=== PATIENT | male | born 1955 | race Two or more races ===

== ENCOUNTER 2017-11-16 18:25 | Inpatient (IN) | payer MEDICAID ==
[~2017-11-16] VITALS: Ht 167.6 cm; Wt 47.4 kg
[2017-11-16] MEDS ORDERED: FUROSEMIDE40 MG ORAL (18:31)
[2017-11-16] MEDS ORDERED: DOCUSATE SODIU100 MG ORAL (18:31)
[2017-11-16] MEDS ORDERED: WARFARIN SODIUM4 MG ORAL (18:31)
[2017-11-16] MEDS ORDERED: PLAVIX75 MG ORAL (18:31)
[2017-11-16] MEDS ORDERED: ASPIR 8181 MG ORAL (18:31)
[2017-11-16] MEDS ORDERED: ATORVASTATIN CA20 MG ORAL (18:31)
[2017-11-16] MEDS ORDERED: LISINOPRIL20 MG ORAL (18:31)
[2017-11-16 19:14] VITALS: BP 107/58
[2017-11-16] MEDS ORDERED: Piperacillin/Tazobactam 3.375 GM in NS 110 ML IVPB ONE (19:15)
[2017-11-16] MEDS ORDERED: Vancomycin 1 GM in NS 275 ML IVPB ONE (19:15)
[2017-11-16 19:42] LABS: ANION GAP 7 mmol/L (5-15); BLOOD UREA NITROGEN 14 mg/dL (7-18); CALCIUM 8.9 MG/DL (8.5-10.1); CARBON DIOXIDE 29 MMOL/L (21-32); CHLORIDE 100 MMOL/L (98-107); CREATININE 0.8 MG/DL (0.55-1.30); POTASSIUM 3.6 MMOL/L (3.5-5.1); SODIUM 136 MMOL/L (136-145)
[2017-11-16] MEDS ORDERED: Morphine Sulfate 4mg/ml Inj (IV USE ONLY) IVP ONE (19:45)
[2017-11-16] MEDS ORDERED: ACETAMINOPHEN325 M1 ORAL (19:48)
[2017-11-16] MEDS ORDERED: NORCO 5-325 TA1 EACH ORAL (19:48)
[2017-11-16 19:52] LABS: HEMATOCRIT 23.7 % (42.0-52.0); HEMOGLOBIN 7.8 G/DL (14.2-18.0); MEAN CORPUSCULAR VOLUME 88 FL (80-99); PLATELET COUNT 674 K/UL (150-450); RED CELL DISTRIBUTION WIDTH 15.2 % (11.6-14.8)
[2017-11-16 19:55] LABS: ALANINE AMINOTRANSFERASE 61 U/L (12-78); ALBUMIN 2.2 G/DL (3.4-5.0); ALBUMIN/GLOBULIN RATIO 0.4 (1.0-2.7); ALKALINE PHOSPHATASE 183 U/L (46-116); ASPARTATE AMINO TRANSFERASE 34 U/L (15-37); BILIRUBIN,TOTAL 0.2 MG/DL (0.2-1.0); CKMB 0.8 NG/ML (0.0-3.6); CREATINE KINASE 29 U/L (26-308); PHOSPHORUS 3.5 MG/DL (2.5-4.9)
[2017-11-16] MEDS ORDERED: NOVOLIN R100 UNIT/1 SUBQ (20:10)
[2017-11-16 20:16] VITALS: BP 94/58
[2017-11-16 21:15] VITALS: BP 106/53
[2017-11-16] MEDS: Norco 5mg/325mg tab ORAL PRN (23:15)
--- NOTE | 2017-11-16 23:47 | Emergency Room Report ---
History of Present Illness General Chief Complaint: Abnormal Labs Source: Medical Record Present Illness HPI Patient is a 62-year-old male sent in by intermediate after increased drainage and swelling to his right lower extremity. Patient recent surgery for his right leg which appeared to be a vascular procedure. Patient had been apparently refusing antibiotics at the facility. The patient been noted to have increased discomfort. Allergies: Coded Allergies: No Known Allergies (Unverified , 11/16/17) Nursing Documentation-[facility] Past Medical History: No History, Except For Hx Hypertension: Yes - gangrene, osteomyelitis Hx Diabetes: Yes - diabetic neuropathy Review of Systems All Other Systems: limited - by poor historian Physical Exam Vital Signs Date Time Temp Pulse Resp B/P (MAP) Pulse Ox O2 Delivery O2 Flow Rate FiO2 11/16/17 18:26 98.6 76 14 111/66 98 Room Air 98.6 General Appearance: no apparent distress, alert, GCS 15, thin, Chronically Ill Neck: full range of motion, supple, thyroid normal Respiratory: lungs clear, normal breath sounds Cardiovascular #1: normal peripheral pulses, regular rate, rhythm Gastrointestinal: normal inspection, normal bowel sounds, non tender Musculoskeletal: swelling - right foot, thigh and leg incision with slight discharge, and minimal drainage, other - left aka Neurologic: alert, responsive, sleeve baster III-XII nml as tested Skin: other - skin infection Medical Decision Making Diagnostic Impression: Primary Impression: Cellulitis of right leg ER Course The patient presented after increased right leg and foot swelling. The differential diagnosis included was not limited to the cellulitis, osteomyelitis , necrotizing fasciitis, wound infection among others. The patient appears have some evidence of wound infection the patient noted have elevated white blood count. The patient started on IV antibiotics and IV fluids.The patient was discussed with Dr. Fox for Dr. La Labs Test 11/16/17 19:15 White Blood Count 16.0 K/UL (4.8-10.8) Red Blood Count 2.70 M/UL (4.70-6.10) Hemoglobin 7.8 G/DL (14.2-18.0) Hematocrit 23.7 % (42.0-52.0) Mean Corpuscular Volume 88 FL (80-99) Mean Corpuscular Hemoglobin 29.0 PG (27.0-31.0) Mean Corpuscular Hemoglobin Concent 33.0 G/DL (32.0-36.0) Red Cell Distribution Width 15.2 % (11.6-14.8) Platelet Count 674 K/UL (150-450) Mean Platelet Volume 4.5 FL (6.5-10.1) Neutrophils (%) (Auto) % (45.0-75.0) Lymphocytes (%) (Auto) % (20.0-45.0) Monocytes (%) (Auto) % (1.0-10.0) Eosinophils (%) (Auto) % (0.0-3.0) Basophils (%) (Auto) % (0.0-2.0) Differential Total Cells Counted 100 Neutrophils % (Manual) 79 % (45-75) Lymphocytes % (Manual) 16 % (20-45) Monocytes % (Manual) 4 % (1-10) Eosinophils % (Manual) 1 % (0-3) Basophils % (Manual) 0 % (0-2) Band Neutrophils 0 % (0-8) Platelet Estimate Increased Platelet Morphology Normal Hypochromasia 1+ Anisocytosis 1+ Sodium Level 136 MMOL/L (136-145) Potassium Level 3.6 MMOL/L (3.5-5.1) Chloride Level 100 MMOL/L (98-107) Carbon Dioxide Level 29 MMOL/L (21-32) Anion Gap 7 mmol/L (5-15) Blood Urea Nitrogen 14 mg/dL (7-18) Creatinine 0.8 MG/DL (0.55-1.30) Estimat Glomerular Filtration Rate > 60 mL/min (>60) Glucose Level 177 MG/DL (74-106) Lactic Acid Level 1.80 mmol/L (0.4-2.0) Calcium Level 8.9 MG/DL (8.5-10.1) Phosphorus Level 3.5 MG/DL (2.5-4.9) Magnesium Level 2.0 MG/DL (1.8-2.4) Total Bilirubin 0.2 MG/DL (0.2-1.0) Aspartate Amino Transf (AST/SGOT) 34 U/L (15-37) Alanine Aminotransferase (ALT/SGPT) 61 U/L (12-78) Alkaline Phosphatase 183 U/L (46-116) Total Creatine Kinase 29 U/L (26-308) Creatine Kinase MB 0.8 NG/ML (0.0-3.6) Creatine Kinase MB Relative Index 2.7 Troponin I 0.000 ng/mL (0.000-0.056) Total Protein 7.8 G/DL (6.4-8.2) Albumin 2.2 G/DL (3.4-5.0) Globulin 5.6 g/dL Albumin/Globulin Ratio 0.4 (1.0-2.7) EKG Diagnostic Results Rate: normal - 72 Rhythm: NSR ST Segments: other - nonspecific st changes Last Vital Signs Date Time Temp Pulse Resp B/P (MAP) Pulse Ox O2 Delivery O2 Flow Rate FiO2 11/16/17 21:00 98.1 69 17 94/58 99 Room Air 98.1 Status: unchanged Disposition: ADMITTED INPATIENT Condition: Serious Referrals: Marylou Baca MD (PCP) Andrzej Strauss MD Nov 16, 2017 23:47
[2017-11-17] VITALS: BP 99/56
[2017-11-17 04:00] VITALS: BP 125/79
[2017-11-17] MEDS: Norco 5mg/325mg tab ORAL PRN (04:34)
[2017-11-17] MEDS: NovoLOG Insulin Flexpen SUBQ SCH ×4 (06:26→21:37)
--- NOTE | 2017-11-17 06:37 | Consultation ---
Consult Note Consult Note Hematology Consult DOS: 11/17/17 MIMI MD: Keven LEVINE: anemia evaluation Chief Complaint: Abnormal Labs Present Illness HPI Patient is a 62-year-old with hx of HTN, osteomyelitis, DM neuropathy [facility] after increased drainage and swelling to his right lower extremity. Patient recent surgery for his right leg which appeared to be a vascular procedure, has a left AKA. Patient had been apparently refusing antibiotics at the facility. The patient been noted to have increased discomfort. Noted to have a hgb 6.8 and heme consulted for eval Allergies: No Known Allergies (Unverified , 11/16/17) Past Medical History: No History, Except For Hx Hypertension: Yes - gangrene, osteomyelitis Hx Diabetes: Yes - diabetic neuropathy Review of Systems All Other Systems: limited - by poor historian Physical Exam Vital Signs Date Time Temp Pulse Resp B/P (MAP) Pulse Ox O2 Delivery O2 Flow Rate FiO2 11/16/17 18:26 98.6 76 14 111/66 98 Room Air 98.6 General Appearance: no apparent distress, alert, Chronically Ill Neck: full range of motion, supple, thyroid normal Respiratory: lungs clear, normal breath sounds Cardiovascular #1: normal peripheral pulses, regular rate, rhythm Gastrointestinal: normal inspection, normal bowel sounds Musculoskeletal: swelling - right foot, thigh and leg incision with slight discharge, and minimal drainage, other - left aka Neurologic: alert, responsive, cco & president III-XII nml as tested Skin: other - skin infection noted around heel Laboratory Tests Test 11/16/17 19:15 White Blood Count 16.0 K/UL (4.8-10.8) H Red Blood Count 2.70 M/UL (4.70-6.10) L Hemoglobin 7.8 G/DL (14.2-18.0) L Hematocrit 23.7 % (42.0-52.0) L Mean Corpuscular Volume 88 FL (80-99) Mean Corpuscular Hemoglobin 29.0 PG (27.0-31.0) Mean Corpuscular Hemoglobin Concent 33.0 G/DL (32.0-36.0) Red Cell Distribution Width 15.2 % (11.6-14.8) H Platelet Count 674 K/UL (150-450) H Mean Platelet Volume 4.5 FL (6.5-10.1) L Neutrophils (%) (Auto) % (45.0-75.0) Lymphocytes (%) (Auto) % (20.0-45.0) Monocytes (%) (Auto) % (1.0-10.0) Eosinophils (%) (Auto) % (0.0-3.0) Basophils (%) (Auto) % (0.0-2.0) Differential Total Cells Counted 100 Neutrophils % (Manual) 79 % (45-75) H Lymphocytes % (Manual) 16 % (20-45) L Monocytes % (Manual) 4 % (1-10) Eosinophils % (Manual) 1 % (0-3) Basophils % (Manual) 0 % (0-2) Band Neutrophils 0 % (0-8) Platelet Estimate Increased H Platelet Morphology Normal Hypochromasia 1+ Anisocytosis 1+ Sodium Level 136 MMOL/L (136-145) Potassium Level 3.6 MMOL/L (3.5-5.1) Chloride Level 100 MMOL/L (98-107) Carbon Dioxide Level 29 MMOL/L (21-32) Anion Gap 7 mmol/L (5-15) Blood Urea Nitrogen 14 mg/dL (7-18) Creatinine 0.8 MG/DL (0.55-1.30) Estimat Glomerular Filtration Rate > 60 mL/min (>60) Glucose Level 177 MG/DL (74-106) H Lactic Acid Level 1.80 mmol/L (0.4-2.0) Calcium Level 8.9 MG/DL (8.5-10.1) Phosphorus Level 3.5 MG/DL (2.5-4.9) Magnesium Level 2.0 MG/DL (1.8-2.4) Total Bilirubin 0.2 MG/DL (0.2-1.0) Aspartate Amino Transf (AST/SGOT) 34 U/L (15-37) Alanine Aminotransferase (ALT/SGPT) 61 U/L (12-78) Alkaline Phosphatase 183 U/L (46-116) H Total Creatine Kinase 29 U/L (26-308) Creatine Kinase MB 0.8 NG/ML (0.0-3.6) Creatine Kinase MB Relative Index 2.7 Troponin I 0.000 ng/mL (0.000-0.056) Total Protein 7.8 G/DL (6.4-8.2) Albumin 2.2 G/DL (3.4-5.0) L Globulin 5.6 g/dL Albumin/Globulin Ratio 0.4 (1.0-2.7) L Assessment and Recs: # Anemia of chronic disease - anemia workup has been reviewed, have ordered for ferritin, tibc, folate, esr, retic, b12 --> hgb goal >7, transfuse as needed --> r/o gi bleed # Leukocytosis is likely related to underlying infection likely due to foot infection --> should improve on abx, currently on vanc # Thrombocytosis - likely due to reactive process from anemia # Cellulitis of right leg - increased right leg and foot swelling. --> started on antibiotics for treatment, consider Id eval # Left AKA GREATLY APPRECIATE CONSULTATION Spencer Resendiz MD Nov 17, 2017 06:37
[2017-11-17] MEDS ORDERED: Vancomycin 1 GM in D5W 275 ML IVPB SCH (07:00)
[2017-11-17 07:52] LABS: HEMATOCRIT 24.3 % (42.0-52.0); HEMOGLOBIN 7.6 G/DL (14.2-18.0); MEAN CORPUSCULAR VOLUME 88 FL (80-99); PLATELET COUNT 647 K/UL (150-450); RED BLOOD COUNT 2.76 M/UL (4.70-6.10)
[2017-11-17 08:00] VITALS: BP 112/75
[2017-11-17] MEDS: Morphine Sulfate 2mg/ml Inj(IV/IM USE ONLY) IVP PRN ×4 (08:09→19:58)
[2017-11-17] MEDS: Lisinopril 20mg tab ORAL SCH (08:11)
[2017-11-17] MEDS: Furosemide 40mg tab ORAL SCH (08:12)
[2017-11-17] MEDS: Aspirin EC 81mg tab ORAL SCH (08:12)
[2017-11-17] MEDS: Docusate 100mg cap ORAL SCH (08:12)
[2017-11-17 08:14] LABS: FERRITIN 268 NG/ML (8-388)
[2017-11-17] MEDS: Heparin 5000 units/ml inj SUBQ SCH ×2 (08:14→21:36)
[2017-11-17 08:30] LABS: % IRON SATURATION 7 % (15-50); IRON 16 ug/dL (50-175); TOTAL IRON BINDING CAPACITY 216 ug/dL (250-450)
--- NOTE | 2017-11-17 08:38 | Diagnostic Imaging Report ---
Indication: Shortness of breath Technique: One view of the chest Comparison: none Findings: Lungs and pleural spaces are clear. Heart size is normal. Aorta is tortuous and calcified Impression: No acute process
[2017-11-17 08:52] LABS: ANION GAP 7 mmol/L (5-15); BLOOD UREA NITROGEN 10 mg/dL (7-18); CALCIUM 8.5 MG/DL (8.5-10.1); CARBON DIOXIDE 26 MMOL/L (21-32); CHLORIDE 103 MMOL/L (98-107); CREATININE 0.4 MG/DL (0.55-1.30); POTASSIUM 4.1 MMOL/L (3.5-5.1); SODIUM 135 MMOL/L (136-145)
[2017-11-17] MEDS ORDERED: Pneumococcal Vaccine 25mcg/0.5ml IM ONE (09:00)
[2017-11-17] MEDS: Vancomycin 1 GM in D5W 275 ML IVPB SCH ×2 (09:18→20:22)
[2017-11-17 12:00] VITALS: BP 137/67
--- NOTE | 2017-11-17 13:26 | History and Physical ---
History of Present Illness General Date patient seen: Nov 17, 2017 Reason for Hospitalization: Abnormal Labs Present Illness HPI 62 y/o male with a PMH of DM, s/p left above the knee amputation, HTN, and PVD presents from [facility] for extensive gangrene and vasculopathy to RLE. Patient stated that he had the LLE amputation 1 year ago. He states that on the right lower extremity, he had a toe gangrene, which prompted his vascular surgeon to perform a RLE angioplasty 1 month ago. He states that his gangrene/ infection to right foot has been worsening over the last 1 month. Patient was also noted to have been denying IV antibiotics at the SNF. Patient was further admitted for management of right foot gangrene. Reports pain and swelling to RLE. Denies cp, sob, n/v, abdominal pain, f/c. Denies alcohol or cigarette use. Denies illicit drug use. Allergies: Coded Allergies: No Known Allergies (Unverified , 11/16/17) Medication History Scheduled Aspirin* (Aspir 81*), 81 MG ORAL DAILY, (Reported) Atorvastatin Calcium* (Atorvastatin Calcium*), 20 MG ORAL BEDTIME, (Reported) Clopidogrel Bisulfate* (Plavix*), 75 MG ORAL DAILY, (Reported) Docusate Sodium* (Docusate Sodium*), 100 MG ORAL DAILY, (Reported) Furosemide* (Lasix*), 40 MG ORAL DAILY, (Reported) Lisinopril (Lisinopril*), 10 MG ORAL DAILY, (Reported) Scheduled PRN Acetaminophen* (Acetaminophen 325MG Tablet*), 325 MG ORAL Q4H PRN for Mild Pain/ Temp > 100.5, (Reported) Hydrocodone Bit/Acetaminophen 5-325* ([place] 5-325*), 1 TAB ORAL Q4H PRN for Moderate Pain (Pain Scale 4-6), (Reported) Discontinued Medications Insulin Regular, Human* (Novolin R*), 0 SUBQ .SLIDING SCALE, (Reported) Discontinued Reason: discontinued med Warfarin Sod* (Warfarin Sod*), 4 MG ORAL DAILY, (Reported) Discontinued Reason: discontinued med Patient History History Provided By: Patient, Medical Record Healthcare decision maker Resuscitation status Full Code Advanced Directive on File Review of Systems All Other Systems: negative except mentioned in HPI Physical Exam General Appearance: no apparent distress, alert HEENT: normocephalic, atraumatic Neck: non-tender, normal alignment, supple Respiratory/Chest: chest wall non-tender, lungs clear, normal breath sounds Cardiovascular/Chest: normal peripheral pulses, normal rate, regular rhythm Abdomen: normal bowel sounds, non tender, soft Extremities: other Last 24 Hour Vital Signs Date Time Temp Pulse Resp B/P (MAP) Pulse Ox O2 Delivery O2 Flow Rate FiO2 11/17/17 12:00 98.0 73 20 137/67 (90) 97 98.0 11/17/17 11:55 98.6 11/17/17 11:25 98.6 11/17/17 09:00 Room Air 11/17/17 08:11 113/73 11/17/17 08:09 98.6 11/17/17 08:00 75 11/17/17 08:00 98.9 85 20 112/75 (87) 97 98.9 11/17/17 04:00 66 11/17/17 04:00 98.6 77 20 125/79 (94) 97 98.6 11/17/17 00:00 68 11/17/17 00:00 97.8 67 20 99/56 (70) 96 97.8 11/16/17 21:15 Room Air 11/16/17 21:15 97.0 64 20 106/53 (70) 97 97.0 11/16/17 21:11 67 11/16/17 21:00 98.1 69 17 94/58 99 Room Air 98.1 11/16/17 20:16 98.1 69 17 94/58 99 Room Air 98.1 11/16/17 20:07 98.1 11/16/17 19:37 99.0 11/16/17 19:14 99.0 68 18 107/58 100 Room Air 99.0 11/16/17 18:26 98.6 76 14 111/66 98 Room Air 98.6 Intake and Output 11/16/17 11/17/17 19:00 07:00 Intake Total 350 ml Output Total 0 ml Balance 350 ml Intake Oral 240 ml IV Total 110 ml Output Urine Total 0 ml Laboratory Tests Test 11/16/17 19:15 11/17/17 07:10 White Blood Count 16.0 K/UL (4.8-10.8) H 16.0 K/UL (4.8-10.8) H Red Blood Count 2.70 M/UL (4.70-6.10) L 2.76 M/UL (4.70-6.10) L Hemoglobin 7.8 G/DL (14.2-18.0) L 7.6 G/DL (14.2-18.0) L Hematocrit 23.7 % (42.0-52.0) L 24.3 % (42.0-52.0) L Mean Corpuscular Volume 88 FL (80-99) 88 FL (80-99) Mean Corpuscular Hemoglobin 29.0 PG (27.0-31.0) 27.4 PG (27.0-31.0) Mean Corpuscular Hemoglobin Concent 33.0 G/DL (32.0-36.0) 31.1 G/DL (32.0-36.0) L Red Cell Distribution Width 15.2 % (11.6-14.8) H 15.0 % (11.6-14.8) H Platelet Count 674 K/UL (150-450) H 647 K/UL (150-450) H Mean Platelet Volume 4.5 FL (6.5-10.1) L 4.5 FL (6.5-10.1) L Neutrophils (%) (Auto) % (45.0-75.0) % (45.0-75.0) Lymphocytes (%) (Auto) % (20.0-45.0) % (20.0-45.0) Monocytes (%) (Auto) % (1.0-10.0) % (1.0-10.0) Eosinophils (%) (Auto) % (0.0-3.0) % (0.0-3.0) Basophils (%) (Auto) % (0.0-2.0) % (0.0-2.0) Differential Total Cells Counted 100 100 Neutrophils % (Manual) 79 % (45-75) H 83 % (45-75) H Lymphocytes % (Manual) 16 % (20-45) L 12 % (20-45) L Monocytes % (Manual) 4 % (1-10) 4 % (1-10) Eosinophils % (Manual) 1 % (0-3) 0 % (0-3) Basophils % (Manual) 0 % (0-2) 1 % (0-2) Band Neutrophils 0 % (0-8) 0 % (0-8) Platelet Estimate Increased H Increased H Platelet Morphology Normal Normal Hypochromasia 1+ 3+ Anisocytosis 1+ 1+ Sodium Level 136 MMOL/L (136-145) 135 MMOL/L (136-145) L Potassium Level 3.6 MMOL/L (3.5-5.1) 4.1 MMOL/L (3.5-5.1) Chloride Level 100 MMOL/L (98-107) 103 MMOL/L (98-107) Carbon Dioxide Level 29 MMOL/L (21-32) 26 MMOL/L (21-32) Anion Gap 7 mmol/L (5-15) 7 mmol/L (5-15) Blood Urea Nitrogen 14 mg/dL (7-18) 10 mg/dL (7-18) Creatinine 0.8 MG/DL (0.55-1.30) 0.4 MG/DL (0.55-1.30) L Estimat Glomerular Filtration Rate > 60 mL/min (>60) > 60 mL/min (>60) Glucose Level 177 MG/DL (74-106) H 85 MG/DL (74-106) Lactic Acid Level 1.80 mmol/L (0.4-2.0) Calcium Level 8.9 MG/DL (8.5-10.1) 8.5 MG/DL (8.5-10.1) Phosphorus Level 3.5 MG/DL (2.5-4.9) Magnesium Level 2.0 MG/DL (1.8-2.4) Total Bilirubin 0.2 MG/DL (0.2-1.0) Aspartate Amino Transf (AST/SGOT) 34 U/L (15-37) Alanine Aminotransferase (ALT/SGPT) 61 U/L (12-78) Alkaline Phosphatase 183 U/L (46-116) H Total Creatine Kinase 29 U/L (26-308) Creatine Kinase MB 0.8 NG/ML (0.0-3.6) Creatine Kinase MB Relative Index 2.7 Troponin I 0.000 ng/mL (0.000-0.056) Total Protein 7.8 G/DL (6.4-8.2) Albumin 2.2 G/DL (3.4-5.0) L Globulin 5.6 g/dL Albumin/Globulin Ratio 0.4 (1.0-2.7) L Reticulocyte Count 3.3 % (0.0-2.0) H Fibrinogen 679 mg/dL (200-400) H Hemoglobin A1c 7.0 % (4.3-6.0) H Uric Acid 1.5 MG/DL (2.6-7.2) L Iron Level 16 ug/dL (50-175) L Total Iron Binding Capacity 216 ug/dL (250-450) L Percent Iron Saturation 7 % (15-50) L Unsaturated Iron Binding 200 ug/dL (112-346) Ferritin 268 NG/ML (8-388) Carcinoembryonic Antigen Pending Vitamin B12 Level 878 PG/ML (193-986) Folate 11.1 NG/ML (8.6-58.9) Thyroid Stimulating Hormone (TSH) 1.963 uiU/mL (0.358-3.740) Height (Feet): 5 Height (Inches): 8.00 Weight (Pounds): 105 Medications Current Medications Medications (Trade) Dose Ordered Sig/Abimael Route PRN Reason Start Time Stop Time Status Last Admin Dose Admin Acetaminophen (Tylenol) 325 mg Q4H PRN ORAL Mild Pain/Temp > 100.5 11/16/17 23:00 12/16/17 22:59 Acetaminophen/ Hydrocodone Bitart ([place] 5/325) 1 tab Q4H PRN ORAL Moderate Pain (Pain Scale 4-6) 11/16/17 23:00 11/23/17 22:59 11/17/17 04:34 Aspirin (Ecotrin) 81 mg DAILY ORAL 11/17/17 09:00 12/17/17 08:59 11/17/17 08:12 Atorvastatin Calcium (Lipitor) 20 mg BEDTIME ORAL 11/17/17 21:00 12/17/17 20:59 Cefepime HCl 2 gm/ Dextrose 55 ml @ 110 mls/hr EVERY 12 HOURS IVPB 11/17/17 13:00 11/24/17 12:59 Clopidogrel Bisulfate (Plavix) 75 mg DAILY ORAL 11/17/17 09:00 12/17/17 08:59 11/17/17 08:17 Dextrose (Dextrose 50%) 25 ml STAT PRN IV Hypoglycemia 11/16/17 23:00 12/16/17 22:59 Dextrose (Dextrose 50%) 50 ml STAT PRN IV Hypoglycemia 11/16/17 23:00 12/16/17 22:59 Docusate Sodium (Colace) 100 mg DAILY ORAL 11/17/17 09:00 12/17/17 08:59 11/17/17 08:12 Furosemide (Lasix) 40 mg DAILY ORAL 11/17/17 09:00 12/17/17 08:59 11/17/17 08:12 Heparin Sodium (Porcine) (Heparin 5000 units/ml) 5,000 units EVERY 12 HOURS SUBQ 11/17/17 09:00 12/17/17 08:59 11/17/17 08:14 Insulin Aspart (NovoLOG) BEFORE MEALS AND HS SUBQ 11/17/17 06:30 12/17/17 06:29 11/17/17 11:31 Lisinopril (Prinivil) 10 mg DAILY ORAL 11/17/17 09:00 12/17/17 08:59 11/17/17 08:11 Metronidazole 100 ml @ 100 mls/hr Q8HR IVPB 11/17/17 14:00 11/24/17 13:59 Morphine Sulfate (Morphine Sulfate) 2 mg Q3H PRN IVP Severe Pain (Pain Scale 7-10) 11/17/17 08:00 11/24/17 07:59 11/17/17 11:25 Vancomycin HCl (Vanco rx to dose) 1 ea DAILY PRN MISC Per rx protocol 11/16/17 23:00 12/16/17 22:59 Vancomycin HCl 1 gm/Dextrose 275 ml @ 184 mls/hr Q12H IVPB 11/17/17 08:30 11/22/17 08:29 11/17/17 09:18 Assessment/Plan Problem List: (1) DM (diabetes mellitus) ICD Codes: E11.9 - Type 2 diabetes mellitus without complications SNOMED: 71907496 (2) HTN (hypertension) ICD Codes: I10 - Essential (primary) hypertension SNOMED: 53233300 (3) PVD (peripheral vascular disease) ICD Codes: I73.9 - Peripheral vascular disease, unspecified SNOMED: 596974040 (4) Gangrene ICD Codes: I96 - Gangrene, not elsewhere classified SNOMED: 100959683 (5) Sepsis ICD Codes: A41.9 - Sepsis, unspecified organism SNOMED: 70838740 (6) s/p left above the knee amputation (7) s/p right lower extremity angioplasty Status: stable, progressing Assessment/Plan - Admit to inpatient - General surgery consulted, Dr. Hall - Podiatry consulted, Dr. Paniagua - ID consulted, Dr. Nieves - Vascular surgery consulted, Dr. Mae - EKG NSR. CXR with no acute pathology. CBC, CMP, coags reviewed. - F/u ESR, CRP - F/u blood cx, urine cx - empiric IV abx (vancomycin, cefepime, flagyl) (11/17 - ) - Venous and arterial duplex of right lower extremity - Consider CT chest angio with leg runoff - Consider MRI of right lower extremity to r/o osteomyelitis - Check A1c and lipid panel - Continue home meds - Wound care - Pain control and supportive care DVT Prophylaxis: HSQ Code Status: Full Hospital Classification Declaration: Based on this initial evaluation, and depending on the patient's clinical course, I anticipate that this patient will require hospitalization for 4-5 days for sepsis, gangrene and close respiratory/ hemodynamic monitoring. Disposition: Once the patient is stable to leave the hospital, I anticipate the patient will likely be discharged to the following environment: [facility] I spent 71 minutes on this patient's case, and 45 minutes were dedicated to counseling and/or care coordination. Discussed with patient/family, nursing staff, SW/CM, and all consultants regarding clinical status, treatment course, and disposition planning. Time of note may not reflect time of encounter. Ivy Gilbert NP Nov 17, 2017 13:26
--- NOTE | 2017-11-17 13:57 | Infectious Diseases Prog Note ---
Assessment/Plan Assessment/Plan Full consult to follow: A) 1) right leg cellulitis, right foot/toe gangrene 2) allergies - knda 3) mar noted P) 1) vancomycin, cefepime and flagyl 2) podiatry, general surgery and vascular surgery evaluations 3) monitor labs and cultures 4) thank you Subjective Allergies: Coded Allergies: No Known Allergies (Unverified , 11/16/17) Objective Vital Signs Last 24 Hour Vital Signs Date Time Temp Pulse Resp B/P (MAP) Pulse Ox O2 Delivery O2 Flow Rate FiO2 11/17/17 12:00 98.0 73 20 137/67 (90) 97 98.0 11/17/17 11:55 98.6 11/17/17 11:25 98.6 11/17/17 09:00 Room Air 11/17/17 08:11 113/73 11/17/17 08:09 98.6 11/17/17 08:00 75 11/17/17 08:00 98.9 85 20 112/75 (87) 97 98.9 11/17/17 04:00 66 11/17/17 04:00 98.6 77 20 125/79 (94) 97 98.6 11/17/17 00:00 68 11/17/17 00:00 97.8 67 20 99/56 (70) 96 97.8 11/16/17 21:15 Room Air 11/16/17 21:15 97.0 64 20 106/53 (70) 97 97.0 11/16/17 21:11 67 11/16/17 21:00 98.1 69 17 94/58 99 Room Air 98.1 11/16/17 20:16 98.1 69 17 94/58 99 Room Air 98.1 11/16/17 20:07 98.1 11/16/17 19:37 99.0 11/16/17 19:14 99.0 68 18 107/58 100 Room Air 99.0 11/16/17 18:26 98.6 76 14 111/66 98 Room Air 98.6 Height (Feet): 5 Height (Inches): 8.00 Weight (Pounds): 105 Microbiology Date/Time Source Procedure Growth Status 11/16/17 21:00 Leg Right Gram Stain - Final Resulted 11/16/17 21:00 Leg Right Wound Culture Pending Resulted Laboratory Tests Test 11/16/17 19:15 11/17/17 07:10 White Blood Count 16.0 K/UL (4.8-10.8) H 16.0 K/UL (4.8-10.8) H Red Blood Count 2.70 M/UL (4.70-6.10) L 2.76 M/UL (4.70-6.10) L Hemoglobin 7.8 G/DL (14.2-18.0) L 7.6 G/DL (14.2-18.0) L Hematocrit 23.7 % (42.0-52.0) L 24.3 % (42.0-52.0) L Mean Corpuscular Volume 88 FL (80-99) 88 FL (80-99) Mean Corpuscular Hemoglobin 29.0 PG (27.0-31.0) 27.4 PG (27.0-31.0) Mean Corpuscular Hemoglobin Concent 33.0 G/DL (32.0-36.0) 31.1 G/DL (32.0-36.0) L Red Cell Distribution Width 15.2 % (11.6-14.8) H 15.0 % (11.6-14.8) H Platelet Count 674 K/UL (150-450) H 647 K/UL (150-450) H Mean Platelet Volume 4.5 FL (6.5-10.1) L 4.5 FL (6.5-10.1) L Neutrophils (%) (Auto) % (45.0-75.0) % (45.0-75.0) Lymphocytes (%) (Auto) % (20.0-45.0) % (20.0-45.0) Monocytes (%) (Auto) % (1.0-10.0) % (1.0-10.0) Eosinophils (%) (Auto) % (0.0-3.0) % (0.0-3.0) Basophils (%) (Auto) % (0.0-2.0) % (0.0-2.0) Differential Total Cells Counted 100 100 Neutrophils % (Manual) 79 % (45-75) H 83 % (45-75) H Lymphocytes % (Manual) 16 % (20-45) L 12 % (20-45) L Monocytes % (Manual) 4 % (1-10) 4 % (1-10) Eosinophils % (Manual) 1 % (0-3) 0 % (0-3) Basophils % (Manual) 0 % (0-2) 1 % (0-2) Band Neutrophils 0 % (0-8) 0 % (0-8) Platelet Estimate Increased H Increased H Platelet Morphology Normal Normal Hypochromasia 1+ 3+ Anisocytosis 1+ 1+ Sodium Level 136 MMOL/L (136-145) 135 MMOL/L (136-145) L Potassium Level 3.6 MMOL/L (3.5-5.1) 4.1 MMOL/L (3.5-5.1) Chloride Level 100 MMOL/L (98-107) 103 MMOL/L (98-107) Carbon Dioxide Level 29 MMOL/L (21-32) 26 MMOL/L (21-32) Anion Gap 7 mmol/L (5-15) 7 mmol/L (5-15) Blood Urea Nitrogen 14 mg/dL (7-18) 10 mg/dL (7-18) Creatinine 0.8 MG/DL (0.55-1.30) 0.4 MG/DL (0.55-1.30) L Estimat Glomerular Filtration Rate > 60 mL/min (>60) > 60 mL/min (>60) Glucose Level 177 MG/DL (74-106) H 85 MG/DL (74-106) Lactic Acid Level 1.80 mmol/L (0.4-2.0) Calcium Level 8.9 MG/DL (8.5-10.1) 8.5 MG/DL (8.5-10.1) Phosphorus Level 3.5 MG/DL (2.5-4.9) Magnesium Level 2.0 MG/DL (1.8-2.4) Total Bilirubin 0.2 MG/DL (0.2-1.0) Aspartate Amino Transf (AST/SGOT) 34 U/L (15-37) Alanine Aminotransferase (ALT/SGPT) 61 U/L (12-78) Alkaline Phosphatase 183 U/L (46-116) H Total Creatine Kinase 29 U/L (26-308) Creatine Kinase MB 0.8 NG/ML (0.0-3.6) Creatine Kinase MB Relative Index 2.7 Troponin I 0.000 ng/mL (0.000-0.056) Total Protein 7.8 G/DL (6.4-8.2) Albumin 2.2 G/DL (3.4-5.0) L Globulin 5.6 g/dL Albumin/Globulin Ratio 0.4 (1.0-2.7) L Erythrocyte Sedimentation Rate Pending Reticulocyte Count 3.3 % (0.0-2.0) H Fibrinogen 679 mg/dL (200-400) H Hemoglobin A1c 7.0 % (4.3-6.0) H Uric Acid 1.5 MG/DL (2.6-7.2) L Iron Level 16 ug/dL (50-175) L Total Iron Binding Capacity 216 ug/dL (250-450) L Percent Iron Saturation 7 % (15-50) L Unsaturated Iron Binding 200 ug/dL (112-346) Ferritin 268 NG/ML (8-388) C-Reactive Protein, Quantitative Pending Carcinoembryonic Antigen Pending Vitamin B12 Level 878 PG/ML (193-986) Folate 11.1 NG/ML (8.6-58.9) Thyroid Stimulating Hormone (TSH) 1.963 uiU/mL (0.358-3.740) Current Medications Medications (Trade) Dose Ordered Sig/Abimael Route PRN Reason Start Time Stop Time Status Last Admin Dose Admin Acetaminophen (Tylenol) 325 mg Q4H PRN ORAL Mild Pain/Temp > 100.5 11/16/17 23:00 12/16/17 22:59 Acetaminophen/ Hydrocodone Bitart ([place] 5/325) 1 tab Q4H PRN ORAL Moderate Pain (Pain Scale 4-6) 11/16/17 23:00 11/23/17 22:59 11/17/17 04:34 Aspirin (Ecotrin) 81 mg DAILY ORAL 11/17/17 09:00 12/17/17 08:59 11/17/17 08:12 Atorvastatin Calcium (Lipitor) 20 mg BEDTIME ORAL 11/17/17 21:00 12/17/17 20:59 Cefepime HCl 2 gm/ Dextrose 55 ml @ 110 mls/hr EVERY 12 HOURS IVPB 11/17/17 13:00 11/24/17 12:59 Clopidogrel Bisulfate (Plavix) 75 mg DAILY ORAL 11/17/17 09:00 12/17/17 08:59 11/17/17 08:17 Dextrose (Dextrose 50%) 25 ml STAT PRN IV Hypoglycemia 11/16/17 23:00 12/16/17 22:59 Dextrose (Dextrose 50%) 50 ml STAT PRN IV Hypoglycemia 11/16/17 23:00 12/16/17 22:59 Docusate Sodium (Colace) 100 mg DAILY ORAL 11/17/17 09:00 12/17/17 08:59 11/17/17 08:12 Furosemide (Lasix) 40 mg DAILY ORAL 11/17/17 09:00 12/17/17 08:59 11/17/17 08:12 Heparin Sodium (Porcine) (Heparin 5000 units/ml) 5,000 units EVERY 12 HOURS SUBQ 11/17/17 09:00 12/17/17 08:59 11/17/17 08:14 Insulin Aspart (NovoLOG) BEFORE MEALS AND HS SUBQ 11/17/17 06:30 12/17/17 06:29 11/17/17 11:31 Lisinopril (Prinivil) 10 mg DAILY ORAL 11/17/17 09:00 12/17/17 08:59 11/17/17 08:11 Metronidazole 100 ml @ 100 mls/hr Q8HR IVPB 11/17/17 14:00 11/24/17 13:59 Morphine Sulfate (Morphine Sulfate) 2 mg Q3H PRN IVP Severe Pain (Pain Scale 7-10) 11/17/17 08:00 11/24/17 07:59 11/17/17 11:25 Vancomycin HCl (Vanco rx to dose) 1 ea DAILY PRN MISC Per rx protocol 11/16/17 23:00 12/16/17 22:59 Vancomycin HCl 1 gm/Dextrose 275 ml @ 184 mls/hr Q12H IVPB 11/17/17 08:30 11/22/17 08:29 11/17/17 09:18 Veronica Donohue MD Nov 17, 2017 13:57
[2017-11-17] MEDS: Cefepime HCl 2 GM in D5W 55 ML IVPB SCH ×2 (15:02→21:56)
[2017-11-17 16:00] VITALS: BP 112/68
[2017-11-17 20:00] VITALS: BP 113/64
[2017-11-18] VITALS: BP 128/65
[2017-11-18 04:00] VITALS: BP 119/66
[2017-11-18] MEDS: NovoLOG Insulin Flexpen SUBQ SCH ×4 (06:26→22:00)
[2017-11-18 06:56] LABS: MEAN CORPUSCULAR VOLUME 87 FL (80-99); PLATELET COUNT 618 K/UL (150-450); RED BLOOD COUNT 2.53 M/UL (4.70-6.10); RED CELL DISTRIBUTION WIDTH 15.5 % (11.6-14.8); WHITE BLOOD COUNT 14.5 K/UL (4.8-10.8)
[2017-11-18 07:29] LABS: ALANINE AMINOTRANSFERASE 43 U/L (12-78); ALBUMIN/GLOBULIN RATIO 0.4 (1.0-2.7); ALKALINE PHOSPHATASE 163 U/L (46-116); ANION GAP 7 mmol/L (5-15); ASPARTATE AMINO TRANSFERASE 22 U/L (15-37); BILIRUBIN,TOTAL 0.3 MG/DL (0.2-1.0); BLOOD UREA NITROGEN 8 mg/dL (7-18); CALCIUM 8.7 MG/DL (8.5-10.1); CARBON DIOXIDE 27 MMOL/L (21-32); CHLORIDE 103 MMOL/L (98-107); CHOLESTEROL 67 MG/DL (< 200); CREATININE 0.4 MG/DL (0.55-1.30); HDL CHOLESTEROL 34 MG/DL (40-60); POTASSIUM 3.7 MMOL/L (3.5-5.1); SODIUM 136 MMOL/L (136-145); TRIGLYCERIDES 42 MG/DL (30-150)
[2017-11-18 08:00] VITALS: BP 124/73
--- NOTE | 2017-11-18 09:18 | General Progress Note ---
Assessment/Plan Status: unchanged Assessment/Plan # Anemia of chronic disease - anemia workup has been reviewed. --> hgb goal >7, transfuse as needed --> r/o gi bleed --> 11/18: Hgb 7.0, blood tx ordered. # Leukocytosis is likely related to underlying infection likely due to foot infection --> should improve on abx, currently on vanc --> CURRENTLY elevated at 14.7 # Thrombocytosis - likely due to reactive process from anemia --> Cont to monitor PLT count for improvement. --> CURRENTLY elevated at 618 # Cellulitis of right leg - increased right leg and foot swelling. --> started on antibiotics for treatment, seen by ID # Left AKA The time the note was entered does not necessarily correspond to the time the patient was seen. Subjective Date patient seen: Nov 18, 2017 ROS Limited/Unobtainable: Yes Hematologic/Lymphatic: Reports: anemia Allergies: Coded Allergies: No Known Allergies (Unverified , 11/16/17) All Systems: reviewed and negative except above Subjective Pt awake and alert. Hgb at 7.0, blood tx ordered. VS stable. Objective Last 24 Hour Vital Signs Date Time Temp Pulse Resp B/P (MAP) Pulse Ox O2 Delivery O2 Flow Rate FiO2 11/18/17 08:00 98.9 87 20 124/73 (90) 98 98.9 11/18/17 04:00 82 11/18/17 04:00 98.0 80 20 119/66 (83) 96 98.0 11/18/17 00:00 99.5 84 20 128/65 (86) 100 99.5 11/18/17 00:00 77 11/17/17 21:00 Room Air 11/17/17 20:00 80 11/17/17 20:00 99.0 79 20 113/64 (80) 100 99.0 11/17/17 17:14 98.0 11/17/17 16:00 81 11/17/17 16:00 98.8 81 20 112/68 (83) 100 98.8 11/17/17 15:02 98.0 11/17/17 12:00 98.0 73 20 137/67 (90) 97 98.0 11/17/17 11:25 98.6 Intake and Output 11/17/17 11/18/17 19:00 07:00 Intake Total 480 ml 430 ml Output Total 1100 ml 600 ml Balance -620 ml -170 ml Intake Oral 480 ml IV Total 430 ml Output Urine Total 1100 ml 600 ml Laboratory Tests 11/18/17 06:00: White Blood Count 14.5H, Red Blood Count 2.53L, Hemoglobin 7.0L, Hematocrit 22.0L, Mean Corpuscular Volume 87, Mean Corpuscular Hemoglobin 27.7, Mean Corpuscular Hemoglobin Concent 31.8L, Red Cell Distribution Width 15.5H, Platelet Count 618H, Mean Platelet Volume 4.6L, Neutrophils (%) (Auto) , Lymphocytes (%) (Auto) , Monocytes (%) (Auto) , Eosinophils (%) (Auto) , Basophils (%) (Auto) , Neutrophils % (Manual) [Pending], Lymphocytes % (Manual) [Pending], Platelet Estimate [Pending], Platelet Morphology [Pending], Sodium Level 136, Potassium Level 3.7, Chloride Level 103, Carbon Dioxide Level 27, Anion Gap 7, Blood Urea Nitrogen 8, Creatinine 0.4L, Estimat Glomerular Filtration Rate > 60, Glucose Level 131H, Calcium Level 8.7, Total Bilirubin 0.3 , Aspartate Amino Transf (AST/SGOT) 22, Alanine Aminotransferase (ALT/SGPT) 43, Alkaline Phosphatase 163H, Total Protein 7.4, Albumin 2.0L, Globulin 5.4, Albumin/Globulin Ratio 0.4L, Triglycerides Level 42, Cholesterol Level 67, LDL Cholesterol 31, HDL Cholesterol 34L, Cholesterol/HDL Ratio 2.0L Height (Feet): 5 Height (Inches): 8.00 Weight (Pounds): 105 General Appearance: no apparent distress, alert EENT: PERRL/EOMI Neck: normal alignment Cardiovascular: normal peripheral pulses Respiratory/Chest: no respiratory distress Abdomen: soft Spencer Resendiz MD Nov 18, 2017 09:18
[2017-11-18] MEDS: Aspirin EC 81mg tab ORAL SCH (09:49)
[2017-11-18] MEDS: Lisinopril 20mg tab ORAL SCH (09:49)
[2017-11-18] MEDS: Docusate 100mg cap ORAL SCH (09:49)
[2017-11-18] MEDS: Furosemide 40mg tab ORAL SCH (09:49)
[2017-11-18] MEDS: Vancomycin 1 GM in D5W 275 ML IVPB SCH (09:52)
[2017-11-18] MEDS: Heparin 5000 units/ml inj SUBQ SCH ×2 (09:52→22:00)
[2017-11-18] MEDS: Cefepime HCl 2 GM in D5W 55 ML IVPB SCH ×2 (09:52→21:25)
[2017-11-18] MEDS: Morphine Sulfate 2mg/ml Inj(IV/IM USE ONLY) IVP PRN ×3 (10:31→22:37)
--- NOTE | 2017-11-18 11:02 | Consultation ---
History of Present Illness General Date patient seen: Nov 18, 2017 Chief Complaint: Abnormal Labs Reason for Consultation: right lower extremity cellulitis Present Illness HPI 62-year-old male with past medical history of HTN, osteomyelitis, DM neuropathy , peripheral vasculopathy s/p LLE AKA sent in by senior care after increased drainage and swelling to his right lower extremity. Has had right lower extremity chronic wounds which have been receiving care for some time now. Unfortunately has been progressively worsening given his comorbidities and vasculopathy. surgery called to evaluate right lower extremity cellulitis for possible abscess or surgical intervention if necessary. patient seen, chart reviewed, patient examined. pleasant male who states he has been dealing with extremity for some time now and pain 8/10 at times. Allergies: Coded Allergies: No Known Allergies (Unverified , 11/16/17) Medication History Scheduled Aspirin* (Aspir 81*), 81 MG ORAL DAILY, (Reported) Atorvastatin Calcium* (Atorvastatin Calcium*), 20 MG ORAL BEDTIME, (Reported) Clopidogrel Bisulfate* (Plavix*), 75 MG ORAL DAILY, (Reported) Docusate Sodium* (Docusate Sodium*), 100 MG ORAL DAILY, (Reported) Furosemide* (Lasix*), 40 MG ORAL DAILY, (Reported) Lisinopril (Lisinopril*), 10 MG ORAL DAILY, (Reported) Scheduled PRN Acetaminophen* (Acetaminophen 325MG Tablet*), 325 MG ORAL Q4H PRN for Mild Pain/ Temp > 100.5, (Reported) Hydrocodone Bit/Acetaminophen 5-325* ([place] 5-325*), 1 TAB ORAL Q4H PRN for Moderate Pain (Pain Scale 4-6), (Reported) Discontinued Medications Insulin Regular, Human* (Novolin R*), 0 SUBQ .SLIDING SCALE, (Reported) Discontinued Reason: MD discontinued med Warfarin Sod* (Warfarin Sod*), 4 MG ORAL DAILY, (Reported) Discontinued Reason: MD discontinued med Patient History History Provided By: Patient, Medical Record, PMD Healthcare decision maker Resuscitation status Full Code Advanced Directive on File Past Medical/Surgical History Past Medical/Surgical History: (1) Cellulitis of right leg (2) Gangrene (3) Sepsis (4) PVD (peripheral vascular disease) (5) HTN (hypertension) (6) DM (diabetes mellitus) (7) s/p left above the knee amputation (8) s/p right lower extremity angioplasty Review of Systems All Other Systems: negative except mentioned in HPI Physical Exam General Appearance: no apparent distress Lines, tubes and drains: peripheral HEENT: normocephalic Respiratory/Chest: normal breath sounds, no respiratory distress, no accessory muscle use Cardiovascular/Chest: other - decrased pulses Abdomen: soft, no organomegaly, no mass Skin Exam: other - see photos Neurologic: alert, responsive Last 24 Hour Vital Signs Date Time Temp Pulse Resp B/P (MAP) Pulse Ox O2 Delivery O2 Flow Rate FiO2 11/18/17 10:31 98.9 11/18/17 09:49 124/73 11/18/17 08:00 98.9 87 20 124/73 (90) 98 98.9 11/18/17 04:00 82 11/18/17 04:00 98.0 80 20 119/66 (83) 96 98.0 11/18/17 00:00 99.5 84 20 128/65 (86) 100 99.5 11/18/17 00:00 77 11/17/17 21:00 Room Air 11/17/17 20:00 80 11/17/17 20:00 99.0 79 20 113/64 (80) 100 99.0 11/17/17 17:14 98.0 11/17/17 16:00 81 11/17/17 16:00 98.8 81 20 112/68 (83) 100 98.8 11/17/17 15:02 98.0 11/17/17 12:00 98.0 73 20 137/67 (90) 97 98.0 11/17/17 11:25 98.6 Intake and Output 11/17/17 11/18/17 19:00 07:00 Intake Total 480 ml 430 ml Output Total 1100 ml 600 ml Balance -620 ml -170 ml Intake Oral 480 ml IV Total 430 ml Output Urine Total 1100 ml 600 ml Laboratory Tests Test 11/18/17 06:00 White Blood Count 14.5 K/UL (4.8-10.8) H Red Blood Count 2.53 M/UL (4.70-6.10) L Hemoglobin 7.0 G/DL (14.2-18.0) L Hematocrit 22.0 % (42.0-52.0) L Mean Corpuscular Volume 87 FL (80-99) Mean Corpuscular Hemoglobin 27.7 PG (27.0-31.0) Mean Corpuscular Hemoglobin Concent 31.8 G/DL (32.0-36.0) L Red Cell Distribution Width 15.5 % (11.6-14.8) H Platelet Count 618 K/UL (150-450) H Mean Platelet Volume 4.6 FL (6.5-10.1) L Neutrophils (%) (Auto) % (45.0-75.0) Lymphocytes (%) (Auto) % (20.0-45.0) Monocytes (%) (Auto) % (1.0-10.0) Eosinophils (%) (Auto) % (0.0-3.0) Basophils (%) (Auto) % (0.0-2.0) Differential Total Cells Counted 100 Neutrophils % (Manual) 84 % (45-75) H Lymphocytes % (Manual) 8 % (20-45) L Monocytes % (Manual) 7 % (1-10) Eosinophils % (Manual) 0 % (0-3) Basophils % (Manual) 1 % (0-2) Band Neutrophils 0 % (0-8) Platelet Estimate Increased H Platelet Morphology Normal Hypochromasia 1+ Anisocytosis 1+ Sodium Level 136 MMOL/L (136-145) Potassium Level 3.7 MMOL/L (3.5-5.1) Chloride Level 103 MMOL/L (98-107) Carbon Dioxide Level 27 MMOL/L (21-32) Anion Gap 7 mmol/L (5-15) Blood Urea Nitrogen 8 mg/dL (7-18) Creatinine 0.4 MG/DL (0.55-1.30) L Estimat Glomerular Filtration Rate > 60 mL/min (>60) Glucose Level 131 MG/DL (74-106) H Calcium Level 8.7 MG/DL (8.5-10.1) Total Bilirubin 0.3 MG/DL (0.2-1.0) Aspartate Amino Transf (AST/SGOT) 22 U/L (15-37) Alanine Aminotransferase (ALT/SGPT) 43 U/L (12-78) Alkaline Phosphatase 163 U/L (46-116) H Total Protein 7.4 G/DL (6.4-8.2) Albumin 2.0 G/DL (3.4-5.0) L Globulin 5.4 g/dL Albumin/Globulin Ratio 0.4 (1.0-2.7) L Triglycerides Level 42 MG/DL (30-150) Cholesterol Level 67 MG/DL (< 200) LDL Cholesterol 31 mg/dL (<100) HDL Cholesterol 34 MG/DL (40-60) L Cholesterol/HDL Ratio 2.0 (3.3-4.4) L Height (Feet): 5 Height (Inches): 8.00 Weight (Pounds): 105 Medications Current Medications Medications (Trade) Dose Ordered Sig/Abimael Route PRN Reason Start Time Stop Time Status Last Admin Dose Admin Acetaminophen (Tylenol) 325 mg Q4H PRN ORAL Mild Pain/Temp > 100.5 11/16/17 23:00 12/16/17 22:59 Acetaminophen/ Hydrocodone Bitart ([place] 5/325) 1 tab Q4H PRN ORAL Moderate Pain (Pain Scale 4-6) 11/16/17 23:00 11/23/17 22:59 11/17/17 04:34 Aspirin (Ecotrin) 81 mg DAILY ORAL 11/17/17 09:00 12/17/17 08:59 11/18/17 09:49 Atorvastatin Calcium (Lipitor) 20 mg BEDTIME ORAL 11/17/17 21:00 12/17/17 20:59 11/17/17 21:35 Cefepime HCl 2 gm/ Dextrose 55 ml @ 110 mls/hr EVERY 12 HOURS IVPB 11/17/17 13:00 11/24/17 12:59 11/18/17 09:52 Clopidogrel Bisulfate (Plavix) 75 mg DAILY ORAL 11/17/17 09:00 12/17/17 08:59 11/18/17 09:49 Dextrose (Dextrose 50%) 25 ml STAT PRN IV Hypoglycemia 11/16/17 23:00 12/16/17 22:59 Dextrose (Dextrose 50%) 50 ml STAT PRN IV Hypoglycemia 11/16/17 23:00 12/16/17 22:59 Docusate Sodium (Colace) 100 mg DAILY ORAL 11/17/17 09:00 12/17/17 08:59 11/18/17 09:49 Furosemide (Lasix) 40 mg DAILY ORAL 11/17/17 09:00 12/17/17 08:59 11/18/17 09:49 Heparin Sodium (Porcine) (Heparin 5000 units/ml) 5,000 units EVERY 12 HOURS SUBQ 11/17/17 09:00 12/17/17 08:59 11/18/17 09:52 Insulin Aspart (NovoLOG) BEFORE MEALS AND HS SUBQ 11/17/17 06:30 12/17/17 06:29 11/18/17 06:26 Lisinopril (Prinivil) 10 mg DAILY ORAL 11/17/17 09:00 12/17/17 08:59 11/18/17 09:49 Metronidazole 100 ml @ 100 mls/hr Q8HR IVPB 11/17/17 14:00 11/24/17 13:59 11/18/17 06:26 Morphine Sulfate (Morphine Sulfate) 2 mg Q3H PRN IVP Severe Pain (Pain Scale 7-10) 11/17/17 08:00 11/24/17 07:59 11/18/17 10:31 Vancomycin HCl (Vanco rx to dose) 1 ea DAILY PRN MISC Per rx protocol 11/16/17 23:00 12/16/17 22:59 Vancomycin HCl 1 gm/Dextrose 275 ml @ 184 mls/hr Q12H IVPB 11/17/17 08:30 11/22/17 08:29 11/18/17 09:52 Assessment/Plan Problem List: (1) Cellulitis of right leg Assessment & Plan: multiple large wounds on right lower extremity; chronic; present on admission; drainage; mild odor; prior surgical scars medial aspect with dry eschar dorsal aspect with gangrene and seropurulent drainage from open wound cellulitis from mid leg to foot second ray with gangrene s/p left AKA -unfortunately ill male with multiple comorbidities, vasculopathy, and chronic wounds. has required left AKA in past. unfortunately prognosis for right lower extremity poor as well and will likely require amputation at some point if not now. -currently infection draining from open area -pending venous and arterial studies -will order MRI of right foot/ankle -Patient known to Podiatry consultants. Appreciate input. -Appreciate Vascular surgery input as well. -for now will continue with inpatient wound care, IV Abx as per ID, and further work up. thank you for this consultation. will follow with recs. ICD Codes: L03.115 - Cellulitis of right lower limb SNOMED: 899929189 Ottoniel Hall Nov 18, 2017 11:02
[2017-11-18] MEDS: Norco 5mg/325mg tab ORAL PRN ×2 (12:03→17:49)
[2017-11-18] MEDS ORDERED: Gadavist 7.5mMol/7.5ml vial IV PRN (12:30)
--- NOTE | 2017-11-18 12:41 | Cardiology Report ---
APPROVED REPORT EKG Measurement Heart [id number] Normal sinus rhythm Abnormal ECG
--- NOTE | 2017-11-18 14:20 | General Progress Note ---
Assessment/Plan Problem List: (1) DM (diabetes mellitus) ICD Codes: E11.9 - Type 2 diabetes mellitus without complications SNOMED: 00802629 (2) HTN (hypertension) ICD Codes: I10 - Essential (primary) hypertension SNOMED: 28383752 (3) PVD (peripheral vascular disease) ICD Codes: I73.9 - Peripheral vascular disease, unspecified SNOMED: 408887377 (4) Gangrene ICD Codes: I96 - Gangrene, not elsewhere classified SNOMED: 947154224 (5) Sepsis ICD Codes: A41.9 - Sepsis, unspecified organism SNOMED: 17804614 (6) s/p left above the knee amputation (7) s/p right lower extremity angioplasty (8) Anemia ICD Codes: D64.9 - Anemia, unspecified SNOMED: 931977582 Status: stable, progressing Assessment/Plan - Admit to inpatient - General surgery consulted, Dr. Hall, appreciate rec's - Podiatry consulted, Dr. Paniagua - ID consulted, Dr. Nieves, appreciate rec's - Vascular surgery consulted, Dr. Mae - Hematology consulted, Dr. Resendiz - Transfuse 1 unit pRBC today for Hgb 7 - Check stool OB - EKG NSR. CXR with no acute pathology. CBC, CMP, coags reviewed. - Trend WBC - Trend H/H - F/u ESR, CRP -- elevated - F/u blood cx, urine cx - empiric IV abx (vancomycin, cefepime, flagyl) (11/17 - ) - F/u venous and arterial duplex of bilateral lower extremities - F/u CT chest angio with bilateral leg runoff w/ IV contrast - F/u MRI of right foot and ankle to r/o osteomyelitis - A1c 7.0 - SSi - LDL 31 - Continue home meds - Wound care - Pain control and supportive care Per psychiatry, patient has no capacity. Bioethics consult placed. DVT Prophylaxis: HSQ Code Status: Full Hospital Classification Declaration: Based on this initial evaluation, and depending on the patient's clinical course, I anticipate that this patient will require hospitalization for 4-5 days for sepsis, gangrene and close respiratory/ hemodynamic monitoring. Disposition: Once the patient is stable to leave the hospital, I anticipate the patient will likely be discharged to the following environment: [facility] I spent 71 minutes on this patient's case, and 45 minutes were dedicated to counseling and/or care coordination. Discussed with patient/family, nursing staff, SW/CM, and all consultants regarding clinical status, treatment course, and disposition planning. Time of note may not reflect time of encounter. Subjective Date patient seen: Nov 18, 2017 Allergies: Coded Allergies: No Known Allergies (Unverified , 11/16/17) Subjective - continues to report pain to right foot - AF, HDS - WBC downtrending - Hgb 7 today - denies cp, sob Objective Last 24 Hour Vital Signs Date Time Temp Pulse Resp B/P (MAP) Pulse Ox O2 Delivery O2 Flow Rate FiO2 11/18/17 12:03 98.9 11/18/17 11:01 98.9 11/18/17 11:01 98.9 11/18/17 10:31 98.9 11/18/17 09:49 124/73 11/18/17 09:00 Room Air 11/18/17 08:00 98.9 87 20 124/73 (90) 98 98.9 11/18/17 04:00 82 11/18/17 04:00 98.0 80 20 119/66 (83) 96 98.0 11/18/17 00:00 99.5 84 20 128/65 (86) 100 99.5 11/18/17 00:00 77 11/17/17 21:00 Room Air 11/17/17 20:00 80 11/17/17 20:00 99.0 79 20 113/64 (80) 100 99.0 11/17/17 16:00 81 11/17/17 16:00 98.8 81 20 112/68 (83) 100 98.8 11/17/17 15:02 98.0 Intake and Output 11/17/17 11/18/17 19:00 07:00 Intake Total 480 ml 430 ml Output Total 1100 ml 600 ml Balance -620 ml -170 ml Intake Oral 480 ml IV Total 430 ml Output Urine Total 1100 ml 600 ml Laboratory Tests 11/18/17 06:00: White Blood Count 14.5H, Red Blood Count 2.53L, Hemoglobin 7.0L, Hematocrit 22.0L, Mean Corpuscular Volume 87, Mean Corpuscular Hemoglobin 27.7, Mean Corpuscular Hemoglobin Concent 31.8L, Red Cell Distribution Width 15.5H, Platelet Count 618H, Mean Platelet Volume 4.6L, Neutrophils (%) (Auto) , Lymphocytes (%) (Auto) , Monocytes (%) (Auto) , Eosinophils (%) (Auto) , Basophils (%) (Auto) , Differential Total Cells Counted 100, Neutrophils % ( Manual) 84H, Lymphocytes % (Manual) 8L, Monocytes % (Manual) 7, Eosinophils % ( Manual) 0, Basophils % (Manual) 1, Band Neutrophils 0, Platelet Estimate IncreasedH, Platelet Morphology Normal, Hypochromasia 1+, Anisocytosis 1+, Sodium Level 136, Potassium Level 3.7, Chloride Level 103, Carbon Dioxide Level 27, Anion Gap 7, Blood Urea Nitrogen 8, Creatinine 0.4L, Estimat Glomerular Filtration Rate > 60, Glucose Level 131H, Calcium Level 8.7, Total Bilirubin 0.3 , Aspartate Amino Transf (AST/SGOT) 22, Alanine Aminotransferase (ALT/SGPT) 43, Alkaline Phosphatase 163H, Total Protein 7.4, Albumin 2.0L, Globulin 5.4, Albumin/Globulin Ratio 0.4L, Triglycerides Level 42, Cholesterol Level 67, LDL Cholesterol 31, HDL Cholesterol 34L, Cholesterol/HDL Ratio 2.0L Height (Feet): 5 Height (Inches): 8.00 Weight (Pounds): 105 General Appearance: alert, mild distress EENT: PERRL/EOMI, normal ENT inspection Neck: non-tender, normal alignment, supple Cardiovascular: normal peripheral pulses, normal rate, regular rhythm Respiratory/Chest: chest wall non-tender, lungs clear, normal breath sounds Abdomen: normal bowel sounds, non tender, soft Extremities: other - left AKA. right foot with gangrene and surgical insicions c/d/i along entire leg, medial aspect Neurologic: physiotherapist's assistant II-XII grossly normal, no motor/sensory deficits, alert, oriented x 3 Skin: normal pigmentation, warm/dry Ivy Gilbert NP Nov 18, 2017 14:20
[2017-11-18 15:10] LABS: INR 1.2 (0.9-1.1)
[2017-11-18 16:00] VITALS: BP 119/87
--- NOTE | 2017-11-18 16:40 | Diagnostic Imaging Report ---
. Indication: Right second toe infection Technique: Sagittal, axial, and coronal T1 fast spin echo and fast spin echo STIR images obtained of the right forefoot Comparison: none Findings: Exam is very limited, due to limited ability the patient to remain still and follow commands. Also, due to inability to straighten the patient's knee, the foot coil could not be utilized. This results in decreased spatial resolution and decreased [id number] ratio. There is suggestion of increased STIR signal within the second distal phalanx, best appreciated on the coronal images, but this is far from conclusive. It is also unclear whether or not there is abnormal T1 signal. The orthogonal images are essentially nondiagnostic. There is also equivocally increased STIR and decreased T1 signal within the first distal phalanx, as well as surrounding soft tissue edema. Again, far from conclusive. This is best appreciated on the sagittal images. More definitive increased STIR and decreased T1 signal is seen in the dorsal aspect of the first metatarsal. There is more questionable increased STIR and decreased T1 signal within the second third and fourth metatarsal heads. No other definite marrow signal abnormality demonstrated. There is evidence of diffuse edema of the subcutaneous fat as well as surrounding the flexor tendons. No definite focal drainable collection demonstrated. Impression: Very limited exam, as described In increased STIR and decreased T1 signal within the first metatarsal head, concerning for osteomyelitis More questionable signal abnormalities within the second third and fourth metatarsal heads, the second distal phalanx, and the first distal phalanx, could indicate acute osteomyelitis but is far from definitive given the exam quality Findings discussed by phone with Dr. Hall at the time of interpretation
--- NOTE | 2017-11-18 17:56 | Anethesia Preoperative Eval ---
Anesthesia Pre-op PMH/ROS General Date of Evaluation: Nov 18, 2017 Time of Evaluation: 18:30 Anesthesiologist: ASA Score: ASA 4 Mallampati Score Class I : Soft palate, uvula, fauces, pillars visible Class II: Soft palate, uvula, fauces visible Class III: Soft palate, base of uvula visible Class IV: Only hard plate visible Mallampati Classification: Class II Surgeon: abner Diagnosis: right leg cellulitis Surgical Procedure: right knee AKA Allergies: Coded Allergies: No Known Allergies (Unverified , 11/16/17) Medications: see eMAR Past Medical History Cardiovascular: Reports: HTN, other - peripheral vasc dz Pulmonary: Denies: asthma, COPD, LUZ, other Gastrointestinal/Genitourinary: Denies: GERD, CRI, ESRD, other Neurologic/Psychiatric: Denies: dementia, CVA, depression/anxiety, TIA, other Endocrine: Reports: DM Hematology/Immune: Reports: anemia, other - h/o sepsis Musculoskeletal/Integumentary: Reports: other - gangrene right lower extremity PSxH Narrative: left AKA 1 year ago, vasculoplasty right lower extremity 1 month ago Anesthesia Pre-op Phys. Exam Physician Exam Last Vital Signs Date Time Temp Pulse Resp B/P (MAP) Pulse Ox O2 Delivery O2 Flow Rate FiO2 11/18/17 16:16 98.9 11/18/17 16:00 97 20 119/87 (98) 100 11/18/17 09:00 Room Air Constitutional: NAD Cardiovascular: RRR Respiratory: CTA Gastrointestinal: S/NT/ND Airway Exam Mallampati Score: Class II MO: full ROM: full Teeth: missing Dentures: no upper, no lower Anesthesia Pre-op A/P Labs Hematology Test 11/18/17 06:00 White Blood Count 14.5 K/UL (4.8-10.8) H Red Blood Count 2.53 M/UL (4.70-6.10) L Hemoglobin 7.0 G/DL (14.2-18.0) L Hematocrit 22.0 % (42.0-52.0) L Mean Corpuscular Volume 87 FL (80-99) Mean Corpuscular Hemoglobin 27.7 PG (27.0-31.0) Mean Corpuscular Hemoglobin Concent 31.8 G/DL (32.0-36.0) L Red Cell Distribution Width 15.5 % (11.6-14.8) H Platelet Count 618 K/UL (150-450) H Mean Platelet Volume 4.6 FL (6.5-10.1) L Neutrophils (%) (Auto) % (45.0-75.0) Lymphocytes (%) (Auto) % (20.0-45.0) Monocytes (%) (Auto) % (1.0-10.0) Eosinophils (%) (Auto) % (0.0-3.0) Basophils (%) (Auto) % (0.0-2.0) Differential Total Cells Counted 100 Neutrophils % (Manual) 84 % (45-75) H Lymphocytes % (Manual) 8 % (20-45) L Monocytes % (Manual) 7 % (1-10) Eosinophils % (Manual) 0 % (0-3) Basophils % (Manual) 1 % (0-2) Band Neutrophils 0 % (0-8) Platelet Estimate Increased H Platelet Morphology Normal Hypochromasia 1+ Anisocytosis 1+ Coagulation Test 11/18/17 14:40 Prothrombin Time 12.4 SEC (9.30-11.50) H Prothromb Time International Ratio 1.2 (0.9-1.1) H Activated Partial Thromboplast Time 30 SEC (23-33) Chemistry Test 11/18/17 06:00 Sodium Level 136 MMOL/L (136-145) Potassium Level 3.7 MMOL/L (3.5-5.1) Chloride Level 103 MMOL/L (98-107) Carbon Dioxide Level 27 MMOL/L (21-32) Anion Gap 7 mmol/L (5-15) Blood Urea Nitrogen 8 mg/dL (7-18) Creatinine 0.4 MG/DL (0.55-1.30) L Estimat Glomerular Filtration Rate > 60 mL/min (>60) Glucose Level 131 MG/DL (74-106) H Calcium Level 8.7 MG/DL (8.5-10.1) Total Bilirubin 0.3 MG/DL (0.2-1.0) Aspartate Amino Transf (AST/SGOT) 22 U/L (15-37) Alanine Aminotransferase (ALT/SGPT) 43 U/L (12-78) Alkaline Phosphatase 163 U/L (46-116) H Total Protein 7.4 G/DL (6.4-8.2) Albumin 2.0 G/DL (3.4-5.0) L Globulin 5.4 g/dL Albumin/Globulin Ratio 0.4 (1.0-2.7) L Triglycerides Level 42 MG/DL (30-150) Cholesterol Level 67 MG/DL (< 200) LDL Cholesterol 31 mg/dL (<100) HDL Cholesterol 34 MG/DL (40-60) L Cholesterol/HDL Ratio 2.0 (3.3-4.4) L Studies Pre-op Studies: EKG - NSR rate72, echo - normal LV function, EF 60-65% Risk Assessment & Plan Assessment: asa 4 Plan: Coco Pathak M.D. Nov 18, 2017 17:56
--- NOTE | 2017-11-18 18:24 | Infectious Diseases Prog Note ---
Assessment/Plan Assessment/Plan Full consult to follow: A) 1) right leg/foot/ankle wound infection/gangrene/cellulitis/? osteo, sepsis, leukocytosis, lgt 2) allergies - nkda 3) allergies - negative P) 1) vancomycin, cefepime and flagyl 2) podiatry, general surgery and vascular surgery w/u 3) monitor labs and cultures 4) d/w Ivy Gilbert NP Subjective Allergies: Coded Allergies: No Known Allergies (Unverified , 11/16/17) Objective Vital Signs Last 24 Hour Vital Signs Date Time Temp Pulse Resp B/P (MAP) Pulse Ox O2 Delivery O2 Flow Rate FiO2 11/18/17 17:58 98.9 11/18/17 17:49 98.9 11/18/17 16:16 98.9 11/18/17 16:00 97.8 97 20 119/87 (98) 100 97.8 11/18/17 12:03 98.9 11/18/17 12:00 82 11/18/17 11:01 98.9 11/18/17 10:31 98.9 11/18/17 09:49 124/73 11/18/17 09:00 Room Air 11/18/17 08:00 93 11/18/17 08:00 98.9 87 20 124/73 (90) 98 98.9 11/18/17 04:00 82 11/18/17 04:00 98.0 80 20 119/66 (83) 96 98.0 11/18/17 00:00 99.5 84 20 128/65 (86) 100 99.5 11/18/17 00:00 77 11/17/17 21:00 Room Air 11/17/17 20:00 80 11/17/17 20:00 99.0 79 20 113/64 (80) 100 99.0 Height (Feet): 5 Height (Inches): 8.00 Weight (Pounds): 105 Microbiology Date/Time Source Procedure Growth Status 11/16/17 19:15 Blood Blood Culture - Preliminary NO GROWTH AFTER 24 HOURS Resulted 11/16/17 19:00 Blood Blood Culture - Preliminary NO GROWTH AFTER 24 HOURS Resulted 11/16/17 21:00 Leg Right Gram Stain - Final Resulted 11/16/17 21:00 Wound Culture - Preliminary Gram Negative Bacillus 1 Gram Negative Bacillus 2 Resulted Laboratory Tests Test 8/17/18 06:00 11/18/17 14:40 White Blood Count 14.5 K/UL (4.8-10.8) H Red Blood Count 2.53 M/UL (4.70-6.10) L Hemoglobin 7.0 G/DL (14.2-18.0) L Hematocrit 22.0 % (42.0-52.0) L Mean Corpuscular Volume 87 FL (80-99) Mean Corpuscular Hemoglobin 27.7 PG (27.0-31.0) Mean Corpuscular Hemoglobin Concent 31.8 G/DL (32.0-36.0) L Red Cell Distribution Width 15.5 % (11.6-14.8) H Platelet Count 618 K/UL (150-450) H Mean Platelet Volume 4.6 FL (6.5-10.1) L Neutrophils (%) (Auto) % (45.0-75.0) Lymphocytes (%) (Auto) % (20.0-45.0) Monocytes (%) (Auto) % (1.0-10.0) Eosinophils (%) (Auto) % (0.0-3.0) Basophils (%) (Auto) % (0.0-2.0) Differential Total Cells Counted 100 Neutrophils % (Manual) 84 % (45-75) H Lymphocytes % (Manual) 8 % (20-45) L Monocytes % (Manual) 7 % (1-10) Eosinophils % (Manual) 0 % (0-3) Basophils % (Manual) 1 % (0-2) Band Neutrophils 0 % (0-8) Platelet Estimate Increased H Platelet Morphology Normal Hypochromasia 1+ Anisocytosis 1+ Sodium Level 136 MMOL/L (136-145) Potassium Level 3.7 MMOL/L (3.5-5.1) Chloride Level 103 MMOL/L (98-107) Carbon Dioxide Level 27 MMOL/L (21-32) Anion Gap 7 mmol/L (5-15) Blood Urea Nitrogen 8 mg/dL (7-18) Creatinine 0.4 MG/DL (0.55-1.30) L Estimat Glomerular Filtration Rate > 60 mL/min (>60) Glucose Level 131 MG/DL (74-106) H Calcium Level 8.7 MG/DL (8.5-10.1) Total Bilirubin 0.3 MG/DL (0.2-1.0) Aspartate Amino Transf (AST/SGOT) 22 U/L (15-37) Alanine Aminotransferase (ALT/SGPT) 43 U/L (12-78) Alkaline Phosphatase 163 U/L (46-116) H Total Protein 7.4 G/DL (6.4-8.2) Albumin 2.0 G/DL (3.4-5.0) L Globulin 5.4 g/dL Albumin/Globulin Ratio 0.4 (1.0-2.7) L Triglycerides Level 42 MG/DL (30-150) Cholesterol Level 67 MG/DL (< 200) LDL Cholesterol 31 mg/dL (<100) HDL Cholesterol 34 MG/DL (40-60) L Cholesterol/HDL Ratio 2.0 (3.3-4.4) L Prothrombin Time 12.4 SEC (9.30-11.50) H Prothromb Time International Ratio 1.2 (0.9-1.1) H Activated Partial Thromboplast Time 30 SEC (23-33) Current Medications Medications (Trade) Dose Ordered Sig/Abimael Route PRN Reason Start Time Stop Time Status Last Admin Dose Admin Acetaminophen (Tylenol) 325 mg Q4H PRN ORAL Mild Pain/Temp > 100.5 11/16/17 23:00 12/16/17 22:59 Acetaminophen/ Hydrocodone Bitart ([place] 5/325) 1 tab Q4H PRN ORAL Moderate Pain (Pain Scale 4-6) 11/16/17 23:00 11/23/17 22:59 11/18/17 17:49 Aspirin (Ecotrin) 81 mg DAILY ORAL 11/17/17 09:00 12/17/17 08:59 11/18/17 09:49 Atorvastatin Calcium (Lipitor) 20 mg BEDTIME ORAL 11/18/17 21:00 12/17/17 20:59 Cefepime HCl 2 gm/ Dextrose 55 ml @ 110 mls/hr EVERY 12 HOURS IVPB 11/17/17 13:00 11/24/17 12:59 11/18/17 09:52 Clopidogrel Bisulfate (Plavix) 75 mg DAILY ORAL 11/17/17 09:00 12/17/17 08:59 11/18/17 09:49 Dextrose (Dextrose 50%) 25 ml STAT PRN IV Hypoglycemia 11/16/17 23:00 12/16/17 22:59 Dextrose (Dextrose 50%) 50 ml STAT PRN IV Hypoglycemia 11/16/17 23:00 12/16/17 22:59 Docusate Sodium (Colace) 100 mg DAILY ORAL 11/17/17 09:00 12/17/17 08:59 11/18/17 09:49 Furosemide (Lasix) 40 mg DAILY ORAL 11/17/17 09:00 12/17/17 08:59 11/18/17 09:49 Heparin Sodium (Porcine) (Heparin 5000 units/ml) 5,000 units EVERY 12 HOURS SUBQ 11/17/17 09:00 12/17/17 08:59 11/18/17 09:52 Insulin Aspart (NovoLOG) BEFORE MEALS AND HS SUBQ 11/17/17 06:30 12/17/17 06:29 11/18/17 17:58 Lisinopril (Prinivil) 10 mg DAILY ORAL 11/17/17 09:00 12/17/17 08:59 11/18/17 09:49 Metronidazole 100 ml @ 100 mls/hr Q8HR IVPB 11/17/17 14:00 11/24/17 13:59 11/18/17 17:46 Morphine Sulfate (Morphine Sulfate) 2 mg Q3H PRN IVP Severe Pain (Pain Scale 7-10) 11/17/17 08:00 11/24/17 07:59 11/18/17 16:16 Vancomycin HCl (Vanco rx to dose) 1 ea DAILY PRN MISC Per rx protocol 11/16/17 23:00 12/16/17 22:59 Vancomycin HCl 1 gm/Dextrose 275 ml @ 184 mls/hr Q12H IVPB 11/17/17 08:30 11/22/17 08:29 11/18/17 09:52 Veronica Donohue MD Nov 18, 2017 18:24
[2017-11-18 20:00] VITALS: BP 147/85
[2017-11-18] MEDS: Vancomycin 1250mg/D5W 250ml IVPB SCH (21:58)
[2017-11-18] MEDS: Atorvastatin 20mg tab ORAL SCH (21:58)
--- NOTE | 2017-11-18 22:27 | Consultation ---
History of Present Illness General Date patient seen: Nov 18, 2017 Chief Complaint: Abnormal Labs Reason for Consultation: right lower extremity cellulitis Present Illness HPI 62 y/o male with a PMH of DM, s/p left above the knee amputation, HTN, and PVD presents from [facility] for extensive gangrene and vasculopathy to [facility]. the pt is [place] speaking with an critical care paramedic he was confused and disorganized he was unable to process the info was given to him Allergies: Coded Allergies: No Known Allergies (Unverified , 11/16/17) Medication History Scheduled Aspirin* (Aspir 81*), 81 MG ORAL DAILY, (Reported) Atorvastatin Calcium* (Atorvastatin Calcium*), 20 MG ORAL BEDTIME, (Reported) Clopidogrel Bisulfate* (Plavix*), 75 MG ORAL DAILY, (Reported) Docusate Sodium* (Docusate Sodium*), 100 MG ORAL DAILY, (Reported) Furosemide* (Lasix*), 40 MG ORAL DAILY, (Reported) Lisinopril (Lisinopril*), 10 MG ORAL DAILY, (Reported) Scheduled PRN Acetaminophen* (Acetaminophen 325MG Tablet*), 325 MG ORAL Q4H PRN for Mild Pain/ Temp > 100.5, (Reported) Hydrocodone Bit/Acetaminophen 5-325* ([place] 5-325*), 1 TAB ORAL Q4H PRN for Moderate Pain (Pain Scale 4-6), (Reported) Discontinued Medications Insulin Regular, Human* (Novolin R*), 0 SUBQ .SLIDING SCALE, (Reported) Discontinued Reason: MD discontinued med Warfarin Sod* (Warfarin Sod*), 4 MG ORAL DAILY, (Reported) Discontinued Reason: MD discontinued med Patient History Limited by: medical condition History Provided By: Patient Healthcare decision maker Resuscitation status Full Code Advanced Directive on File Past Medical/Surgical History Past Medical/Surgical History: (1) Gangrene (2) Sepsis (3) PVD (peripheral vascular disease) (4) HTN (hypertension) (5) DM (diabetes mellitus) (6) s/p left above the knee amputation (7) s/p right lower extremity angioplasty (8) Cellulitis of right leg (9) Anemia Review of Systems Psychiatric: Reports: prior hx, anxiety, depressed feelings Physical Exam General Appearance: no apparent distress, alert, confused Last 24 Hour Vital Signs Date Time Temp Pulse Resp B/P (MAP) Pulse Ox O2 Delivery O2 Flow Rate FiO2 11/18/17 17:58 98.9 11/18/17 17:49 98.9 11/18/17 16:16 98.9 11/18/17 16:00 97.8 97 20 119/87 (98) 100 97.8 11/18/17 12:03 98.9 11/18/17 12:00 82 11/18/17 11:01 98.9 11/18/17 10:31 98.9 11/18/17 09:49 124/73 11/18/17 09:00 Room Air 11/18/17 08:00 93 11/18/17 08:00 98.9 87 20 124/73 (90) 98 98.9 11/18/17 04:00 82 11/18/17 04:00 98.0 80 20 119/66 (83) 96 98.0 11/18/17 00:00 99.5 84 20 128/65 (86) 100 99.5 11/18/17 00:00 77 Intake and Output 11/17/17 11/18/17 19:00 07:00 Intake Total 480 ml 430 ml Output Total 1100 ml 600 ml Balance -620 ml -170 ml Intake Oral 480 ml IV Total 430 ml Output Urine Total 1100 ml 600 ml Laboratory Tests Test 11/18/17 06:00 11/18/17 14:40 11/18/17 19:00 White Blood Count 14.5 K/UL (4.8-10.8) H Red Blood Count 2.53 M/UL (4.70-6.10) L Hemoglobin 7.0 G/DL (14.2-18.0) L Hematocrit 22.0 % (42.0-52.0) L Mean Corpuscular Volume 87 FL (80-99) Mean Corpuscular Hemoglobin 27.7 PG (27.0-31.0) Mean Corpuscular Hemoglobin Concent 31.8 G/DL (32.0-36.0) L Red Cell Distribution Width 15.5 % (11.6-14.8) H Platelet Count 618 K/UL (150-450) H Mean Platelet Volume 4.6 FL (6.5-10.1) L Neutrophils (%) (Auto) % (45.0-75.0) Lymphocytes (%) (Auto) % (20.0-45.0) Monocytes (%) (Auto) % (1.0-10.0) Eosinophils (%) (Auto) % (0.0-3.0) Basophils (%) (Auto) % (0.0-2.0) Differential Total Cells Counted 100 Neutrophils % (Manual) 84 % (45-75) H Lymphocytes % (Manual) 8 % (20-45) L Monocytes % (Manual) 7 % (1-10) Eosinophils % (Manual) 0 % (0-3) Basophils % (Manual) 1 % (0-2) Band Neutrophils 0 % (0-8) Platelet Estimate Increased H Platelet Morphology Normal Hypochromasia 1+ Anisocytosis 1+ Sodium Level 136 MMOL/L (136-145) Potassium Level 3.7 MMOL/L (3.5-5.1) Chloride Level 103 MMOL/L (98-107) Carbon Dioxide Level 27 MMOL/L (21-32) Anion Gap 7 mmol/L (5-15) Blood Urea Nitrogen 8 mg/dL (7-18) Creatinine 0.4 MG/DL (0.55-1.30) L Estimat Glomerular Filtration Rate > 60 mL/min (>60) Glucose Level 131 MG/DL (74-106) H Calcium Level 8.7 MG/DL (8.5-10.1) Total Bilirubin 0.3 MG/DL (0.2-1.0) Aspartate Amino Transf (AST/SGOT) 22 U/L (15-37) Alanine Aminotransferase (ALT/SGPT) 43 U/L (12-78) Alkaline Phosphatase 163 U/L (46-116) H Total Protein 7.4 G/DL (6.4-8.2) Albumin 2.0 G/DL (3.4-5.0) L Globulin 5.4 g/dL Albumin/Globulin Ratio 0.4 (1.0-2.7) L Triglycerides Level 42 MG/DL (30-150) Cholesterol Level 67 MG/DL (< 200) LDL Cholesterol 31 mg/dL (<100) HDL Cholesterol 34 MG/DL (40-60) L Cholesterol/HDL Ratio 2.0 (3.3-4.4) L Prothrombin Time 12.4 SEC (9.30-11.50) H Prothromb Time International Ratio 1.2 (0.9-1.1) H Activated Partial Thromboplast Time 30 SEC (23-33) Vancomycin Level Trough 7.8 ug/mL (5.0-12.0) Height (Feet): 5 Height (Inches): 8.00 Weight (Pounds): 105 Medications Current Medications Medications (Trade) Dose Ordered Sig/Abimael Route PRN Reason Start Time Stop Time Status Last Admin Dose Admin Acetaminophen (Tylenol) 325 mg Q4H PRN ORAL Mild Pain/Temp > 100.5 11/16/17 23:00 12/16/17 22:59 Acetaminophen/ Hydrocodone Bitart ([place] 5/325) 1 tab Q4H PRN ORAL Moderate Pain (Pain Scale 4-6) 11/16/17 23:00 11/23/17 22:59 11/18/17 17:49 Aspirin (Ecotrin) 81 mg DAILY ORAL 11/17/17 09:00 12/17/17 08:59 11/18/17 09:49 Atorvastatin Calcium (Lipitor) 20 mg BEDTIME ORAL 11/18/17 21:00 12/17/17 20:59 11/18/17 21:58 Cefepime HCl 2 gm/ Dextrose 55 ml @ 110 mls/hr EVERY 12 HOURS IVPB 11/17/17 13:00 11/24/17 12:59 11/18/17 21:25 Clopidogrel Bisulfate (Plavix) 75 mg DAILY ORAL 11/17/17 09:00 12/17/17 08:59 11/18/17 09:49 Dextrose (Dextrose 50%) 25 ml STAT PRN IV Hypoglycemia 11/16/17 23:00 12/16/17 22:59 Dextrose (Dextrose 50%) 50 ml STAT PRN IV Hypoglycemia 11/16/17 23:00 12/16/17 22:59 Docusate Sodium (Colace) 100 mg DAILY ORAL 11/17/17 09:00 12/17/17 08:59 11/18/17 09:49 Furosemide (Lasix) 40 mg DAILY ORAL 11/17/17 09:00 12/17/17 08:59 11/18/17 09:49 Heparin Sodium (Porcine) (Heparin 5000 units/ml) 5,000 units EVERY 12 HOURS SUBQ 11/17/17 09:00 12/17/17 08:59 11/18/17 22:00 Insulin Aspart (NovoLOG) BEFORE MEALS AND HS SUBQ 11/17/17 06:30 12/17/17 06:29 11/18/17 22:00 Lisinopril (Prinivil) 10 mg DAILY ORAL 11/17/17 09:00 12/17/17 08:59 11/18/17 09:49 Metronidazole 100 ml @ 100 mls/hr Q8HR IVPB 11/17/17 14:00 11/24/17 13:59 11/18/17 22:01 Morphine Sulfate (Morphine Sulfate) 2 mg Q3H PRN IVP Severe Pain (Pain Scale 7-10) 11/17/17 08:00 11/24/17 07:59 11/18/17 16:16 Vancomycin HCl (Vanco rx to dose) 1 ea DAILY PRN MISC Per rx protocol 11/16/17 23:00 12/16/17 22:59 Vancomycin HCl/ Dextrose 250 ml @ 166.667 mls/hr Q12H IVPB 11/18/17 21:00 11/23/17 20:59 11/18/17 21:58 Assessment/Plan Assessment/Plan dementia the pt packs capacity to make decisions seroquel prn for agitation Valerio Cassidy MD Nov 18, 2017 22:27
[2017-11-19] VITALS: BP 126/71
[2017-11-19] MEDS: Norco 5mg/325mg tab ORAL PRN ×3 (00:42→17:48)
[2017-11-19] MEDS: Morphine Sulfate 2mg/ml Inj(IV/IM USE ONLY) IVP PRN ×4 (03:16→21:42)
[2017-11-19 04:00] VITALS: BP 104/56
--- NOTE | 2017-11-19 04:45 | Consultation ---
DATE OF CONSULTATION: 11/18/2017 INFECTIOUS DISEASE CONSULTATION CONSULTING PHYSICIAN: Veronica Donohue M.D. REFERRING PHYSICIAN: Marylou Baca M.D. REASON FOR CONSULTATION: Right lower extremity, which includes the leg, ankle, and foot infected wound, gangrene, cellulitis, possible osteo. Also, sepsis, leukocytosis, and fevers. CHIEF COMPLAINT: The patient's chief complaint coming in to the hospital is right leg cellulitis. HISTORY OF PRESENT ILLNESS: This is a 62-year-old male, who is not a very good historian. He seems to be non-Niuean speaking at this time in communicating with the patient. The patient comes in with right leg infected wound that involves the right leg, ankle, and foot. The patient has gangrenous changes, ischemic changes, and infected wound. MRI showed possible osteo of the right foot. Infectious Disease consultation was requested for antibiotic management. The patient is placed on vancomycin, cefepime, and Flagyl. The patient is septic with low-grade fevers, elevated white count, and SIRS criteria. The patient was seen by General Surgery and then also will be seen by Vascular Surgery and Podiatry. The patient will be continued on IV antibiotics vancomycin, cefepime, and Flagyl. Wound culture shows so far gram-negative and the final was pending. Case discussed with Ivy Gilbert, nurse practitioner for Dr. Baca. MAR was noted. Orders were noted. Notes and records were reviewed. PAST MEDICAL HISTORY: The patient's past medical history includes the history of the following. The patient has a past medical history of left leg amputation, peripheral vascular disease, diabetes, hypertension, possible hyperlipidemia, and left [id number] amputation. MEDICATIONS: Upon reviewing the MAR, he is on the following medications. Atorvastatin, he is on cefepime, vancomycin, Flagyl, aspirin, clopidogrel, furosemide, heparin, lisinopril, morphine, hydrocodone, acetaminophen, and insulin. Outside medications were noted and reconciliated. ALLERGIES: No known drug allergies. No antibiotic allergies. SOCIAL HISTORY: Negative for smoking, alcohol, or drug abuse. FAMILY HISTORY: Noncontributory. REVIEW OF SYSTEMS: CONSTITUTIONAL: The patient has no [place]. No central line. Generalized fatigue and weakness. He had a low-grade fevers earlier. NECK: No obvious head pain or neck pain. CARDIAC: No chest pain. GASTROINTESTINAL: No nausea, vomiting, or diarrhea. GENITOURINARY: No [place]. PULMONARY: No congestion or shortness of breath. SKIN: No rash. EXTREMITIES: Right leg pain. NEUROLOGIC: No seizures. PHYSICAL EXAMINATION: VITAL SIGNS: T-max 97.8, pulse rate is 89, respiratory rate 20, blood pressure 119/87, and saturation 100%. GENERAL: Alert, responsive, and in no distress. HEAD AND NECK: Oral exam, no thrush. Eye exam, no icterus. Neck is supple. No JVD. Normocephalic. No JVP. No facial droop. No neck stiffness. LUNGS: Clear bilaterally. No rhonchi or rales. HEART: Regular. No obvious gallop or murmur. ABDOMEN: Soft. Positive bowel sounds. Nontender. SKIN: No rash. EXTREMITIES: His left leg, he had an amputation. Stump is clean and dry. His right leg is quite infected and he has cellulitis of the right leg, ankle, and foot with infected wound and slough, draining wound with gangrenous ischemic changes. There are gangrenous changes in his right foot toes also. PERIPHERAL VASCULAR: Ischemic changes of the right foot and leg and ankle. GENITOURINARY: No Mar[place]. LINES SITES: Without phlebitis. NEUROLOGIC: Alert, responsive, and nonfocal. LABORATORY DATA: Laboratory data is as follows. White count 14.5, hemoglobin 7.0, and platelet count 618,000. White count has been as high as 16. Creatinine 0.4. LFTs noted. Lactic acid was 1.8. Creatinine 0.4. IMAGING STUDIES: MRI of the right foot was limited study with possible abnormalities of the third and fourth metatarsal heads. Possible osteo. It is not a very good study. Chest x-ray showed no acute process. UA is pending at this time. Wound culture of the right leg is gram negative so far. Blood cultures are negative today. ASSESSMENT AND PLAN: 1. The patient has right leg ankle and foot cellulitis, infected wound, possible osteo, gangrenous changes of toes of his right foot. We will continue with vancomycin, cefepime, and Flagyl for methicillin-resistant Staphylococcus aureus gram-negative coverage. Continue antibiotics vancomycin, cefepime, and Flagyl. Check wound culture. Check laboratories. Continue further workup per Vascular Surgery, Podiatry, and General Surgery. The patient may need debridement versus amputation. Continue antibiotics pending final workup. 2. Diabetes. 3. Hypertension. 4. Blood sugar and blood pressure control per primary. 5. The patient is anemic. 6. History of peripheral vascular disease and left leg amputation. 7. Continue treatment per primary for diabetes and hypertension. 8. No known allergies. 9. Social history is negative. 10. Family history is noncontributory. 11. MAR was noted. 12. Case was discussed with RN. 13. Case was discussed with Ivy Gilbert, nurse practitioner. 14. Continue treatment per primary consultants. 15. Notes and records were noted. 16. Orders were entered. Veronica Donohue M.D. DR: LUIS ALFREDO JOB#: [id number] CC:
[2017-11-19] MEDS: NovoLOG Insulin Flexpen SUBQ SCH ×4 (06:24→21:40)
[2017-11-19 07:07] LABS: ANION GAP 8 mmol/L (5-15); BLOOD UREA NITROGEN 11 mg/dL (7-18); CALCIUM 8.8 MG/DL (8.5-10.1); CARBON DIOXIDE 29 MMOL/L (21-32); CHLORIDE 102 MMOL/L (98-107); CREATININE 0.5 MG/DL (0.55-1.30); POTASSIUM 3.9 MMOL/L (3.5-5.1); SODIUM 138 MMOL/L (136-145)
[2017-11-19 07:16] LABS: BASOPHILS % (AUTO) 0.3 % (0.0-2.0); EOSINOPHILS % (AUTO) 0.2 % (0.0-3.0); HEMATOCRIT 27.6 % (42.0-52.0); HEMOGLOBIN 8.8 G/DL (14.2-18.0); LYMPHOCYTES % (AUTO) 12.1 % (20.0-45.0); MEAN CORPUSCULAR VOLUME 87 FL (80-99); MONOCYTES % (AUTO) 5.9 % (1.0-10.0); NEUTROPHILS % (AUTO) 81.5 % (45.0-75.0); PLATELET COUNT 617 K/UL (150-450); RED BLOOD COUNT 3.19 M/UL (4.70-6.10); RED CELL DISTRIBUTION WIDTH 14.7 % (11.6-14.8); WHITE BLOOD COUNT 12.8 K/UL (4.8-10.8)
--- NOTE | 2017-11-19 07:27 | General Progress Note ---
Progress Note Progress Note Patient seen and examined Consult dictated # [id number] Harvinder Katz MD Nov 19, 2017 07:27
[2017-11-19 08:00] VITALS: BP 121/71
[2017-11-19] MEDS: Aspirin EC 81mg tab ORAL SCH (08:55)
[2017-11-19] MEDS: Furosemide 40mg tab ORAL SCH (08:55)
[2017-11-19] MEDS: Docusate 100mg cap ORAL SCH (08:55)
[2017-11-19] MEDS: Cefepime HCl 2 GM in D5W 55 ML IVPB SCH ×2 (08:56→20:40)
[2017-11-19] MEDS: Vancomycin 1250mg/D5W 250ml IVPB SCH ×2 (08:56→20:40)
[2017-11-19] MEDS: Lisinopril 20mg tab ORAL SCH (08:56)
[2017-11-19] MEDS: Heparin 5000 units/ml inj SUBQ SCH ×2 (08:57→20:41)
--- NOTE | 2017-11-19 09:00 | Consultation ---
DATE OF CONSULTATION: 11/19/2017 VASCULAR SURGERY CONSULTATION CONSULTING PHYSICIAN: Harvinder Katz M.D. REFERRING PHYSICIANS: 1. Marylou Baca M.D. 2. Ivy Gilbert, Nurse Practitioner REASON FOR CONSULTATION: Right foot gangrene. HISTORY OF PRESENT ILLNESS: This is a 62-year-old male, who is well known to our vascular service. 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 The bypass graft remains patent in the proximal calf. However, his wounds have deteriorated and has worsening gangrene and necrosis down to the bone and tendons in the right foot. Vascular Surgery is consulted for further evaluation and leg amputation. The patient has no other complaints. PAST MEDICAL HISTORY: As above. History of hypertension, diabetes mellitus, left leg below-knee amputation, extensive arterial occlusive disease, and prior history of heavy smoking. MEDICATIONS: See attached MAR. ALLERGIES: No known drug allergies. SOCIAL HISTORY: Former smoker. Denies history of smoking, drugs, or alcohol abuse. He resides in a assisted. FAMILY HISTORY: Unremarkable. SYSTEM REVIEW: CARDIOVASCULAR: No history of chest pain or palpitations. PULMONARY: No cough. No hemoptysis. GASTROINTESTINAL: No history of abdominal pain, constipation, or diarrhea. GENITOURINARY: No dysuria, frequency, or urgency. NEUROLOGIC: No history of strokes or seizures PHYSICAL EXAMINATION: VITAL SIGNS: The patient is afebrile, temperature 97, heart rate 80, blood pressure 140/70, and respirations 16. NECK: No evidence of carotid bruits. LUNGS: Clear to auscultation. HEART: Regular rate and rhythm. ABDOMEN: Soft and nontender. EXTREMITIES: He has palpable radial pulses. He has palpable femoral pulses. Left leg above-knee amputation stump is clear, dry, and intact. His right leg bypass graft is palpable on the medial side above the calloused area. These areas were marked on the leg. The right foot has extensive gangrene and necrosis down to the bone with exposed muscle and necrotic tendon. He does have distal toe necrosis. LABORATORY AND DIAGNOSTIC DATA: Revealed WBC of 14.5, hemoglobin 7.0, and platelet count 618. Chemistry, sodium is 138, potassium is 3.9, BUN is 11, creatinine is 0.5, and glucose is 108. Duplexes were reviewed. IMPRESSION: 1. Non-salvageable right leg with extensive gangrene and necrosis down to the bone with knee contracture. 2. Patent right leg femoral tibial bypass graft in the proximal segment. 3. Prior history of left leg above-knee amputation. Non-ambulatory assisted resident. 4. Former heavy smoker with a history of hypertension, diabetes, and mild dementia. PLAN AND RECOMMENDATIONS: 1. Antibiotics per Infectious Disease Service. 2. Medical optimization progress. 3. Psychiatry and ethic social consultation. 4. Social work consultation in progress. 5. The patient will be scheduled for right leg above-knee amputation once consented and medically cleared. 6. We will need blood transfusion for his anemia preoperatively. The consented and the patient. He wishes and agrees to have the amputation and the nurse at bedside. Harvinder Katz M.D. DR: RAJWINDER JOB#: [id number] CC: Harvinder Katz M.D.; Fax#: [phone] MARYLOU BACA M.D. ; FAX#: [phone] Ivy Gilbert, Nurse Practitioner [facility]
[2017-11-19 12:00] VITALS: BP 135/75
--- NOTE | 2017-11-19 13:55 | General Surgery Progress Note ---
General Surgery-Progress Note Subjective Additional Comments no acute events. pain in right leg and foot Objective Last 24 Hour Vital Signs Date Time Temp Pulse Resp B/P (MAP) Pulse Ox O2 Delivery O2 Flow Rate FiO2 11/19/17 13:25 97.8 11/19/17 13:25 97.8 11/19/17 09:00 Room Air 11/19/17 08:56 97.8 11/19/17 08:56 121/71 11/19/17 08:00 97.8 81 20 121/71 (88) 96 97.8 11/19/17 04:00 64 11/19/17 04:00 98.2 64 18 104/56 (72) 100 98.2 11/19/17 00:00 90 11/19/17 00:00 99.0 90 20 126/71 (89) 100 99.0 11/18/17 21:00 Room Air 11/18/17 20:00 98.7 74 20 147/85 (105) 100 98.7 11/18/17 20:00 74 11/18/17 17:49 98.9 11/18/17 16:16 98.9 11/18/17 16:00 97.8 97 20 119/87 (98) 100 97.8 I&O Intake and Output 11/18/17 11/19/17 19:00 07:00 Intake Total 720 ml 645 ml Output Total 500 ml 1200 ml Balance 220 ml -555 ml Intake Oral 720 ml 240 ml IV Total 405 ml Output Urine Total 500 ml 1200 ml Dressing: saturated Drains: other Cardiovascular: RSR Abdomen: flat Extremities: tenderness, cyanosis Laboratory Tests Test 11/18/17 14:40 11/18/17 19:00 11/19/17 06:10 Prothrombin Time 12.4 SEC (9.30-11.50) H Prothromb Time International Ratio 1.2 (0.9-1.1) H Activated Partial Thromboplast Time 30 SEC (23-33) Vancomycin Level Trough 7.8 ug/mL (5.0-12.0) White Blood Count 12.8 K/UL (4.8-10.8) H Red Blood Count 3.19 M/UL (4.70-6.10) L Hemoglobin 8.8 G/DL (14.2-18.0) L Hematocrit 27.6 % (42.0-52.0) L Mean Corpuscular Volume 87 FL (80-99) Mean Corpuscular Hemoglobin 27.5 PG (27.0-31.0) Mean Corpuscular Hemoglobin Concent 31.8 G/DL (32.0-36.0) L Red Cell Distribution Width 14.7 % (11.6-14.8) Platelet Count 617 K/UL (150-450) H Mean Platelet Volume 4.5 FL (6.5-10.1) L Neutrophils (%) (Auto) 81.5 % (45.0-75.0) H Lymphocytes (%) (Auto) 12.1 % (20.0-45.0) L Monocytes (%) (Auto) 5.9 % (1.0-10.0) Eosinophils (%) (Auto) 0.2 % (0.0-3.0) Basophils (%) (Auto) 0.3 % (0.0-2.0) Sodium Level 138 MMOL/L (136-145) Potassium Level 3.9 MMOL/L (3.5-5.1) Chloride Level 102 MMOL/L (98-107) Carbon Dioxide Level 29 MMOL/L (21-32) Anion Gap 8 mmol/L (5-15) Blood Urea Nitrogen 11 mg/dL (7-18) Creatinine 0.5 MG/DL (0.55-1.30) L Estimat Glomerular Filtration Rate > 60 mL/min (>60) Glucose Level 108 MG/DL (74-106) H Calcium Level 8.8 MG/DL (8.5-10.1) Plan Problems: (1) Cellulitis of right leg Assessment & Plan: multiple large wounds on right lower extremity; chronic; present on admission; drainage; mild odor; prior surgical scars medial aspect with dry eschar dorsal aspect with gangrene and seropurulent drainage from open wound cellulitis from mid leg to foot second ray with gangrene s/p left AKA MRI : increased STIR and decreased T1 signal within the first metatarsal head, concerning for osteomyelitis More questionable signal abnormalities within the second third and fourth metatarsal heads, the second distal phalanx, and the first distal phalanx, could indicate acute osteomyelitis but is far from definitive given the exam quality -unfortunately ill male with multiple comorbidities, vasculopathy, and chronic wounds. has required left AKA in past. unfortunately prognosis for right lower extremity poor as well and will likely require amputation at some point if not now. -currently infection draining from open area -pending venous and arterial studies -Patient known to Podiatry consultants. Appreciate input. -Appreciate Vascular surgery input as well. -plan for AKA once medically cleared -for now will continue with inpatient wound care, IV Abx as per ID, and further work up. thank you for this consultation. will follow with recs. Ottoniel Hall Nov 19, 2017 13:55
--- NOTE | 2017-11-19 14:10 | General Progress Note ---
Assessment/Plan Status: stable Assessment/Plan # Anemia of chronic disease - anemia workup has been reviewed, will trend CBC daily --> hgb goal >7, transfuse as needed --> r/o gi bleed --> Blood tx hx: 11/18 1 unit --> CURRENT Hgb 8.8 # Leukocytosis is likely related to underlying infection likely due to foot infection. --> should improve on abx, currently on vanc --> CURRENT WBC 12.8, elevated # Thrombocytosis - likely due to reactive process from anemia --> Cont to monitor PLT count for improvement. --> CURRENT PLT 617 # Cellulitis of right leg - increased right leg and foot swelling. --> started on antibiotics for treatment, seen by ID -- Plan for AKA # Left AKA The time the note was entered does not necessarily correspond to the time the patient was seen. Subjective Date patient seen: Nov 19, 2017 ROS Limited/Unobtainable: Yes Hematologic/Lymphatic: Reports: anemia Allergies: Coded Allergies: No Known Allergies (Unverified , 11/16/17) All Systems: reviewed and negative except above Subjective Pt awake and alert. S/P 1 unit PRBC, tolerated well. Hgb improved from 7.0 to 8.8 Objective Last 24 Hour Vital Signs Date Time Temp Pulse Resp B/P (MAP) Pulse Ox O2 Delivery O2 Flow Rate FiO2 11/19/17 13:25 97.8 11/19/17 13:25 97.8 11/19/17 09:00 Room Air 11/19/17 08:56 97.8 11/19/17 08:56 121/71 11/19/17 08:00 97.8 81 20 121/71 (88) 96 97.8 11/19/17 04:00 64 11/19/17 04:00 98.2 64 18 104/56 (72) 100 98.2 11/19/17 00:00 90 11/19/17 00:00 99.0 90 20 126/71 (89) 100 99.0 11/18/17 21:00 Room Air 11/18/17 20:00 98.7 74 20 147/85 (105) 100 98.7 11/18/17 20:00 74 11/18/17 17:49 98.9 11/18/17 16:16 98.9 11/18/17 16:00 97.8 97 20 119/87 (98) 100 97.8 Intake and Output 11/18/17 11/19/17 19:00 07:00 Intake Total 720 ml 645 ml Output Total 500 ml 1200 ml Balance 220 ml -555 ml Intake Oral 720 ml 240 ml IV Total 405 ml Output Urine Total 500 ml 1200 ml Laboratory Tests 11/18/17 14:40: Prothrombin Time 12.4H, Prothromb Time International Ratio 1.2H, Activated Partial Thromboplast Time 30 11/18/17 19:00: Vancomycin Level Trough 7.8 11/19/17 06:10: White Blood Count 12.8H, Red Blood Count 3.19L, Hemoglobin 8.8L, Hematocrit 27.6L, Mean Corpuscular Volume 87, Mean Corpuscular Hemoglobin 27.5, Mean Corpuscular Hemoglobin Concent 31.8L, Red Cell Distribution Width 14.7, Platelet Count 617H, Mean Platelet Volume 4.5L, Neutrophils (%) (Auto) 81.5H, Lymphocytes (%) (Auto) 12.1L, Monocytes (%) (Auto) 5.9, Eosinophils (%) (Auto) 0.2, Basophils (%) (Auto) 0.3, Sodium Level 138, Potassium Level 3.9, Chloride Level 102, Carbon Dioxide Level 29, Anion Gap 8, Blood Urea Nitrogen 11, Creatinine 0.5L, Estimat Glomerular Filtration Rate > 60, Glucose Level 108H, Calcium Level 8.8 Height (Feet): 5 Height (Inches): 8.00 Weight (Pounds): 105 General Appearance: no apparent distress EENT: PERRL/EOMI Neck: normal alignment Cardiovascular: normal peripheral pulses Respiratory/Chest: no respiratory distress Abdomen: soft Spencer Resendiz MD Nov 19, 2017 14:10
--- NOTE | 2017-11-19 15:32 | General Progress Note ---
Assessment/Plan Problem List: (1) DM (diabetes mellitus) ICD Codes: E11.9 - Type 2 diabetes mellitus without complications SNOMED: 22359122 (2) HTN (hypertension) ICD Codes: I10 - Essential (primary) hypertension SNOMED: 99018704 (3) PVD (peripheral vascular disease) ICD Codes: I73.9 - Peripheral vascular disease, unspecified SNOMED: 851674682 (4) Gangrene ICD Codes: I96 - Gangrene, not elsewhere classified SNOMED: 036757175 (5) Sepsis ICD Codes: A41.9 - Sepsis, unspecified organism SNOMED: 07132033 (6) s/p left above the knee amputation (7) s/p right lower extremity angioplasty (8) Anemia ICD Codes: D64.9 - Anemia, unspecified SNOMED: 696702142 (9) s/p riht leg femoral tibial bypass graft, patent Status: stable Assessment/Plan - General surgery consulted, Dr. Hall, appreciate rec's - Podiatry consulted, Dr. Paniagua - ID consulted, Dr. Nieves, appreciate rec's - Vascular surgery consulted, Dr. Mae - Hematology consulted, Dr. Resendiz - s/p 1 unit pRBC transfusion for Hgb 7 on 11/18 - Check stool OB - EKG NSR. CXR with no acute pathology. CBC, CMP, coags reviewed. - Trend WBC - Trend H/H - F/u ESR, CRP -- elevated - F/u blood cx, urine cx - empiric IV abx (vancomycin, cefepime, flagyl) (11/17 - ) - F/u wound cx -- multiple organisms growing - F/u venous and arterial duplex of bilateral lower extremities - F/u CT chest angio with bilateral leg runoff w/ IV contrast - F/u MRI of right foot and ankle to r/o osteomyelitis -- possible acute osteomyelitis on the 1st to 4th metatarsal heads - A1c 7.0 - SSi - LDL 31 - Continue home meds - Wound care - Pain control and supportive care - Scheduled for R AKA on Tuesday pending bioethics approval Based on the patient's medical history, and other available ancillary data, the patient is a INTERMEDIATE risk for an INTERMEDIATE risk procedure. Per the most recent ACC/AHA guidelines, the patient does not need any further cardiopulmonary testing prior to the procedure and there do not appear to be any clear medical contraindications to proceeding with the proposed procedure. Patient is agreeable to procedure but per psychiatry, patient has no capacity. Bioethics consult placed. [employer] contacted for prosthetics hardware. DVT Prophylaxis: HSQ Code Status: Full Hospital Classification Declaration: Based on this initial evaluation, and depending on the patient's clinical course, I anticipate that this patient will require hospitalization for 4-5 days for sepsis, gangrene and close respiratory/ hemodynamic monitoring. Disposition: Once the patient is stable to leave the hospital, I anticipate the patient will likely be discharged to the following environment: [facility] I spent 31 minutes on this patient's case, and 25 minutes were dedicated to counseling and/or care coordination. Discussed with patient/family, nursing staff, SW/CM, and all consultants regarding clinical status, treatment course, and disposition planning. Time of note may not reflect time of encounter. Subjective Date patient seen: Nov 19, 2017 Allergies: Coded Allergies: No Known Allergies (Unverified , 11/16/17) Subjective - AF, HDS - MRI R foot showing likely acute osteomyelitis - awaiting bioethics consultation - Hgb 8.8 today. WBC 12.8 - continues to report pain to RLE Objective Last 24 Hour Vital Signs Date Time Temp Pulse Resp B/P (MAP) Pulse Ox O2 Delivery O2 Flow Rate FiO2 11/19/17 13:25 97.8 11/19/17 13:25 97.8 11/19/17 09:00 Room Air 11/19/17 08:56 97.8 11/19/17 08:56 121/71 11/19/17 08:00 97.8 81 20 121/71 (88) 96 97.8 11/19/17 04:00 64 11/19/17 04:00 98.2 64 18 104/56 (72) 100 98.2 11/19/17 00:00 90 11/19/17 00:00 99.0 90 20 126/71 (89) 100 99.0 11/18/17 21:00 Room Air 11/18/17 20:00 98.7 74 20 147/85 (105) 100 98.7 11/18/17 20:00 74 11/18/17 17:49 98.9 11/18/17 16:16 98.9 11/18/17 16:00 97.8 97 20 119/87 (98) 100 97.8 Intake and Output 11/18/17 11/19/17 19:00 07:00 Intake Total 720 ml 645 ml Output Total 500 ml 1200 ml Balance 220 ml -555 ml Intake Oral 720 ml 240 ml IV Total 405 ml Output Urine Total 500 ml 1200 ml Laboratory Tests 11/18/17 19:00: Vancomycin Level Trough 7.8 11/19/17 06:10: White Blood Count 12.8H, Red Blood Count 3.19L, Hemoglobin 8.8L, Hematocrit 27.6L, Mean Corpuscular Volume 87, Mean Corpuscular Hemoglobin 27.5, Mean Corpuscular Hemoglobin Concent 31.8L, Red Cell Distribution Width 14.7, Platelet Count 617H, Mean Platelet Volume 4.5L, Neutrophils (%) (Auto) 81.5H, Lymphocytes (%) (Auto) 12.1L, Monocytes (%) (Auto) 5.9, Eosinophils (%) (Auto) 0.2, Basophils (%) (Auto) 0.3, Sodium Level 138, Potassium Level 3.9, Chloride Level 102, Carbon Dioxide Level 29, Anion Gap 8, Blood Urea Nitrogen 11, Creatinine 0.5L, Estimat Glomerular Filtration Rate > 60, Glucose Level 108H, Calcium Level 8.8 Height (Feet): 5 Height (Inches): 8.00 Weight (Pounds): 105 General Appearance: no apparent distress, alert EENT: PERRL/EOMI, normal ENT inspection Neck: non-tender, normal alignment, supple Cardiovascular: normal peripheral pulses, normal rate, regular rhythm Respiratory/Chest: chest wall non-tender, lungs clear, normal breath sounds Abdomen: normal bowel sounds, non tender, soft Extremities: other - L AKA. R with gangrene to foot and surgical incision along medial aspect of right leg c/d/i Neurologic: whizzer II-XII grossly normal, alert Ivy Gilbert NP Nov 19, 2017 15:32
[2017-11-19 16:00] VITALS: BP 125/75
--- NOTE | 2017-11-19 16:27 | Diagnostic Imaging Report ---
EXAM: CT Abdomen and Pelvis With Intravenous Contrast CT Left Lower Extremity With Intravenous Contrast CT Right Lower Extremity With Intravenous Contrast CLINICAL HISTORY: PREOP TECHNIQUE: Axial computed tomography images of the abdomen, pelvis and lower extremities with intravenous contrast during the arterial phase of enhancement. Combined abdominal and lower extremity CTDI is 37 mGy and DLP is 1343 mGy-cm. One or more of the following dose reduction techniques were used: automated exposure control, adjustment of the mA and/or kV according to patient size, use of iterative reconstruction technique. Coronal and sagittal reformatted images were created and reviewed. COMPARISON: No relevant prior studies available. FINDINGS: VASCULATURE: Aorta: No abdominal aortic aneurysm. No dissection. Celiac trunk and mesenteric arteries: No occlusion or significant stenosis. Renal arteries: No occlusion or significant stenosis. Right iliac arteries: No occlusion or significant stenosis. Right femoral/popliteal arteries: No occlusion or significant stenosis. Right calf/foot arteries: No occlusion or significant stenosis. Left iliac arteries: No occlusion or significant stenosis. Left femoral/popliteal arteries: No occlusion or significant stenosis. Left calf/foot arteries: No occlusion or significant stenosis. Lung bases: Unremarkable. No mass. No consolidation. ABDOMEN: Liver: This was portions appear unremarkable. No mass. Gallbladder and bile ducts: Excluded from view and cannot be evaluated. Pancreas: Only seen on the coronal images and appears unremarkable. Spleen: Partially visualized on the coronal images and appears unremarkable. Adrenals: Only seen on the coronal images and appear unremarkable. Kidneys and ureters: Only seen on the coronal images and appear unremarkable. No hydronephrosis. No solid mass. Stomach and bowel: Diffuse colonic and rectal fecal retention may suggest constipation and/or impaction. No obstruction. No mucosal thickening. PELVIS: Appendix: No findings to suggest acute appendicitis. Bladder: Diffusely distended. No mass. Reproductive: Unremarkable as visualized. ABDOMEN, PELVIS and LOWER EXTREMITIES: Intraperitoneal space: Unremarkable. No significant fluid collection. No free air. Bones/joints: Degenerative changes in the lower lumbar spine. No acute fracture. No dislocation. Soft tissues: Unremarkable. Lymph nodes: Unremarkable. No enlarged lymph nodes. IMPRESSION: 1. Extensive atherosclerotic calcifications in the distal abdominal aorta, common iliac arteries, external iliac arteries, without evidence of anginal dilatation or dissection. Moderate stenosis in bilateral common iliac arteries. 2. Diffuse colonic and rectal fecal retention may suggest constipation and/or impaction. EXAM: CT of the Left Lower Extremity With Intravenous Contrast CLINICAL HISTORY: PREOP TECHNIQUE: Axial computed tomography images of the left lower extremity with intravenous contrast during the arterial phase of contrast enhancement. Combined abdominal and lower extremity CTDI is 37 mGy and DLP is 1343 mGy- cm. One or more of the following dose reduction techniques were used: automated exposure control, adjustment of the mA and/or kV according to patient size, use of iterative reconstruction technique. Coronal and sagittal reformatted images were created and reviewed. COMPARISON: No relevant prior studies available. FINDINGS: VASCULATURE: Left iliac arteries: Atherosclerotic calcifications throughout the left common iliac, external iliac, and common femoral arteries. Focal high-grade stenosis seen in the left external iliac artery (series 16 image 70). Left femoral/popliteal arteries: Luminal attenuation and moderate narrowing seen along the distal portions of the left SFA. Radiodense femoral arterial graft identified however no central luminal flow is seen, suggesting graft occlusion. LOWER EXTREMITY: Bones/joints: Status post lower extremity amputation at the level of the mid femur. Extensive heterotopic ossification noted adjacent to the distal tip of the femoral remnant. . Soft tissues: Unremarkable. No abnormal contrast enhancement. IMPRESSION: 1. Status post lower extremity amputation at the level of the mid femur. Extensive heterotopic ossification noted adjacent to the distal tip of the femoral remnant. 2. Radiodense femoral arterial graft identified however no central luminal flow is seen, suggesting graft occlusion. EXAM: CT of the Right Lower Extremity With Intravenous Contrast CLINICAL HISTORY: PREOP TECHNIQUE: Axial computed tomography images of the right lower extremity with intravenous contrast during the arterial phase of contrast enhancement. Combined abdominal and lower extremity CTDI is 37 mGy and DLP is 1343 mGy- cm. One or more of the following dose reduction techniques were used: automated exposure control, adjustment of the mA and/or kV according to patient size, use of iterative reconstruction technique. Coronal and sagittal reformatted images were created and reviewed. COMPARISON: No relevant prior studies available. FINDINGS: VASCULATURE: Right femoral/popliteal arteries: Extensive atherosclerotic calcifications seen throughout the right common iliac, external iliac, internal iliac, common femoral, and superficial femoral arteries. There is moderate to severe narrowing in attenuation throughout the superficial femoral artery with high-grade stenosis at the level of the mid femur and occlusion at the level of the mid and distal SFA and occluded popliteal artery. Right calf/foot arteries: Reconstitution of the trifurcation from collaterals. Posterior tibial and peroneal arteries appear patent through its level of the ankle. Mid and distal anterior tibial artery demonstrate minimal flow. No occlusion or significant stenosis. LOWER EXTREMITY: Bones/joints: No acute fracture. No dislocation. Soft tissues: Unremarkable. No abnormal contrast enhancement. IMPRESSION: 1. Extensive atherosclerotic calcifications seen throughout the right common iliac, external iliac, internal iliac, common femoral, and superficial femoral arteries. 2. There is moderate to severe stenosis and attenuation throughout the proximal superficial femoral artery with high-grade stenosis and occlusion at the level of the mid and distal SFA and occluded popliteal artery. 3. Reconstitution of the trifurcation via collaterals. Posterior tibial and peroneal arteries appear patent through its level of the ankle. Mid and distal anterior tibial artery demonstrate minimal flow.
[2017-11-19] MEDS ORDERED: NS 275ml ONE (17:15)
[2017-11-19 20:00] VITALS: BP 120/70
[2017-11-19] MEDS: Atorvastatin 20mg tab ORAL SCH (20:40)
[2017-11-20] VITALS: BP 120/74
[2017-11-20] MEDS: Norco 5mg/325mg tab ORAL PRN (03:00)
[2017-11-20 04:00] VITALS: BP 129/69
[2017-11-20] MEDS: NovoLOG Insulin Flexpen SUBQ SCH ×4 (05:48→22:34)
[2017-11-20] MEDS: Morphine Sulfate 2mg/ml Inj(IV/IM USE ONLY) IVP PRN ×4 (05:54→21:48)
[2017-11-20 05:59] LABS: BASOPHILS % (AUTO) 0.3 % (0.0-2.0); EOSINOPHILS % (AUTO) 0.3 % (0.0-3.0); HEMATOCRIT 28.6 % (42.0-52.0); HEMOGLOBIN 9.6 G/DL (14.2-18.0); LYMPHOCYTES % (AUTO) 10.2 % (20.0-45.0); MEAN CORPUSCULAR VOLUME 87 FL (80-99); MONOCYTES % (AUTO) 5.2 % (1.0-10.0); NEUTROPHILS % (AUTO) 84.1 % (45.0-75.0); PLATELET COUNT 578 K/UL (150-450); RED BLOOD COUNT 3.31 M/UL (4.70-6.10); RED CELL DISTRIBUTION WIDTH 14.1 % (11.6-14.8); WHITE BLOOD COUNT 13.7 K/UL (4.8-10.8)
[2017-11-20 06:43] LABS: ALANINE AMINOTRANSFERASE 34 U/L (12-78); ALBUMIN 2.3 G/DL (3.4-5.0); ALBUMIN/GLOBULIN RATIO 0.5 (1.0-2.7); ALKALINE PHOSPHATASE 151 U/L (46-116); ANION GAP 9 mmol/L (5-15); ASPARTATE AMINO TRANSFERASE 20 U/L (15-37); BILIRUBIN,TOTAL 0.5 MG/DL (0.2-1.0); BLOOD UREA NITROGEN 10 mg/dL (7-18); CALCIUM 8.7 MG/DL (8.5-10.1); CARBON DIOXIDE 28 MMOL/L (21-32); CHLORIDE 102 MMOL/L (98-107); CREATININE 0.5 MG/DL (0.55-1.30); POTASSIUM 4.3 MMOL/L (3.5-5.1); SODIUM 138 MMOL/L (136-145)
[2017-11-20 08:00] VITALS: BP 144/77
[2017-11-20] MEDS: Lisinopril 20mg tab ORAL SCH (08:30)
[2017-11-20] MEDS: Cefepime HCl 2 GM in D5W 55 ML IVPB SCH (08:30)
[2017-11-20] MEDS: Heparin 5000 units/ml inj SUBQ SCH ×2 (08:31→21:00)
[2017-11-20] MEDS: Furosemide 40mg tab ORAL SCH (08:32)
[2017-11-20] MEDS: Aspirin EC 81mg tab ORAL SCH (08:32)
[2017-11-20] MEDS: Docusate 100mg cap ORAL SCH (08:32)
[2017-11-20] MEDS: Vancomycin 1250mg/D5W 250ml IVPB SCH (09:45)
[2017-11-20 12:00] VITALS: BP 125/76
--- NOTE | 2017-11-20 12:22 | General Progress Note ---
Assessment/Plan Problem List: (1) DM (diabetes mellitus) ICD Codes: E11.9 - Type 2 diabetes mellitus without complications SNOMED: 07348219 (2) HTN (hypertension) ICD Codes: I10 - Essential (primary) hypertension SNOMED: 75883647 (3) PVD (peripheral vascular disease) ICD Codes: I73.9 - Peripheral vascular disease, unspecified SNOMED: 849547735 (4) Gangrene ICD Codes: I96 - Gangrene, not elsewhere classified SNOMED: 757478297 (5) Sepsis ICD Codes: A41.9 - Sepsis, unspecified organism SNOMED: 80513112 (6) s/p left above the knee amputation (7) s/p right lower extremity angioplasty (8) Anemia ICD Codes: D64.9 - Anemia, unspecified SNOMED: 551215280 (9) s/p riht leg femoral tibial bypass graft, patent Status: stable, progressing Assessment/Plan - General surgery consulted, Dr. Hall, appreciate rec's - Podiatry consulted, Dr. Paniagua - ID consulted, Dr. Nieves, appreciate rec's - Vascular surgery consulted, Dr. Mae - Hematology consulted, Dr. Resendiz - s/p 1 unit pRBC transfusion for Hgb 7 on 11/18 - Check stool OB - EKG NSR. CXR with no acute pathology. CBC, CMP, coags reviewed. - Troponin negative - ECHO with 60-5% LVEF with no wall motion abnormality - Trend WBC - Trend H/H - F/u ESR, CRP -- elevated - F/u blood cx, urine cx - empiric IV abx (vancomycin, cefepime, flagyl) (11/17 - ) - F/u wound cx -- multiple organisms growing - F/u venous and arterial duplex of bilateral lower extremities - F/u CT chest angio with bilateral leg runoff w/ IV contrast -- 1. Extensive atherosclerotic calcifications in the distal abdominal aorta, common iliac arteries, external iliac arteries, without evidence of anginal dilatation or dissection. Moderate stenosis in bilateral common iliac arteries. 2. Diffuse colonic and rectal fecal retention may suggest constipation and/or impaction. - F/u MRI of right foot and ankle to r/o osteomyelitis -- possible acute osteomyelitis on the 1st to 4th metatarsal heads - A1c 7.0 - SSi - LDL 31 - Continue home meds - Wound care - Pain control and supportive care - Scheduled for R AKA on Tuesday pending bioethics approval. Bioethics not available until Tuesday. Based on the patient's medical history, and other available ancillary data, the patient is a INTERMEDIATE risk for an INTERMEDIATE risk procedure. Per the most recent ACC/AHA guidelines, the patient does not need any further cardiopulmonary testing prior to the procedure and there do not appear to be any clear medical contraindications to proceeding with the proposed procedure. Patient is agreeable to procedure but per psychiatry, patient has no capacity. Bioethics consult placed. [employer] contacted for prosthetics hardware. DVT Prophylaxis: HSQ Code Status: Full Hospital Classification Declaration: Based on this initial evaluation, and depending on the patient's clinical course, I anticipate that this patient will require hospitalization for 4-5 days for sepsis, gangrene and close respiratory/ hemodynamic monitoring. Disposition: Once the patient is stable to leave the hospital, I anticipate the patient will likely be discharged to the following environment: [facility] I spent 31 minutes on this patient's case, and 25 minutes were dedicated to counseling and/or care coordination. Discussed with patient/family, nursing staff, SW/CM, and all consultants regarding clinical status, treatment course, and disposition planning. Time of note may not reflect time of encounter. Subjective Date patient seen: Nov 20, 2017 Allergies: Coded Allergies: No Known Allergies (Unverified , 11/16/17) Subjective - no acute events overnight - no bioethics available until Tuesday - AF, HDS Objective Last 24 Hour Vital Signs Date Time Temp Pulse Resp B/P (MAP) Pulse Ox O2 Delivery O2 Flow Rate FiO2 11/20/17 09:00 Room Air 11/20/17 08:30 144/77 11/20/17 08:00 97.4 84 20 144/77 (99) 98 97.4 11/20/17 07:54 78 11/20/17 04:00 98.4 80 20 129/69 (89) 99 98.4 11/20/17 03:59 82 11/20/17 00:00 98.1 79 20 120/74 (89) 99 98.1 11/19/17 23:50 79 11/19/17 21:00 Room Air 11/19/17 20:00 98.1 76 20 120/70 (87) 98 98.1 11/19/17 18:58 97.8 11/19/17 17:48 97.8 11/19/17 16:00 77 11/19/17 16:00 98.1 81 20 125/75 (92) 97 98.1 11/19/17 13:25 97.8 11/19/17 13:25 97.8 Intake and Output 11/19/17 11/20/17 19:00 07:00 Intake Total 1110 ml 300 ml Output Total 2300 ml Balance -1190 ml 300 ml Intake Oral 1110 ml 300 ml Output Urine Total 2300 ml # Voids 5 # Bowel Movements 1 Laboratory Tests 11/20/17 04:15: White Blood Count 13.7H, Red Blood Count 3.31L, Hemoglobin 9.6L, Hematocrit 28.6L, Mean Corpuscular Volume 87, Mean Corpuscular Hemoglobin 29.1, Mean Corpuscular Hemoglobin Concent 33.6, Red Cell Distribution Width 14.1, Platelet Count 578H, Mean Platelet Volume 4.5L, Neutrophils (%) (Auto) 84.1H, Lymphocytes (%) (Auto) 10.2L, Monocytes (%) (Auto) 5.2, Eosinophils (%) (Auto) 0.3, Basophils (%) (Auto) 0.3, Sodium Level 138, Potassium Level 4.3, Chloride Level 102, Carbon Dioxide Level 28, Anion Gap 9, Blood Urea Nitrogen 10, Creatinine 0.5L, Estimat Glomerular Filtration Rate > 60, Glucose Level 106, Calcium Level 8.7, Total Bilirubin 0.5, Aspartate Amino Transf (AST/SGOT) 20, Alanine Aminotransferase (ALT/SGPT) 34, Alkaline Phosphatase 151H, Troponin I 0.000, Total Protein 6.9, Albumin 2.3L, Globulin 4.6, Albumin/Globulin Ratio 0.5L 11/20/17 08:00: Vancomycin Level Trough 11.8 Height (Feet): 5 Height (Inches): 8.00 Weight (Pounds): 105 General Appearance: no apparent distress, alert EENT: PERRL/EOMI, normal ENT inspection Neck: non-tender, normal alignment, supple, normal inspection Cardiovascular: normal peripheral pulses, normal rate, regular rhythm Respiratory/Chest: chest wall non-tender, lungs clear, normal breath sounds Abdomen: normal bowel sounds, non tender, soft Extremities: other - left AKA. right leg with sutures along medial aspect c/d/ i with gangrenous changes to foot Neurologic: lab engineer II-XII grossly normal, alert Ivy Gilbert NP Nov 20, 2017 12:22
--- NOTE | 2017-11-20 13:05 | General Surgery Progress Note ---
General Surgery-Progress Note Subjective Additional Comments no acute events. CTA noted. micro noted. leukocytosis Objective Last 24 Hour Vital Signs Date Time Temp Pulse Resp B/P (MAP) Pulse Ox O2 Delivery O2 Flow Rate FiO2 11/20/17 12:58 97.4 11/20/17 12:28 97.4 11/20/17 12:00 98.1 72 20 125/76 (92) 100 98.1 11/20/17 11:55 73 11/20/17 09:00 Room Air 11/20/17 08:30 144/77 11/20/17 08:00 97.4 84 20 144/77 (99) 98 97.4 11/20/17 07:54 78 11/20/17 04:00 98.4 80 20 129/69 (89) 99 98.4 11/20/17 03:59 82 11/20/17 00:00 98.1 79 20 120/74 (89) 99 98.1 11/19/17 23:50 79 11/19/17 21:00 Room Air 11/19/17 20:00 98.1 76 20 120/70 (87) 98 98.1 11/19/17 18:58 97.8 11/19/17 17:48 97.8 11/19/17 16:00 77 11/19/17 16:00 98.1 81 20 125/75 (92) 97 98.1 11/19/17 13:25 97.8 I&O Intake and Output 11/19/17 11/20/17 19:00 07:00 Intake Total 1110 ml 300 ml Output Total 2300 ml Balance -1190 ml 300 ml Intake Oral 1110 ml 300 ml Output Urine Total 2300 ml # Voids 5 # Bowel Movements 1 Dressing: saturated Wound: other Drains: none Cardiovascular: RSR Respiratory: clear Abdomen: soft, flat, non-tender, present bowel sounds Extremities: edema, cyanosis Laboratory Tests Test 11/20/17 04:15 11/20/17 08:00 White Blood Count 13.7 K/UL (4.8-10.8) H Red Blood Count 3.31 M/UL (4.70-6.10) L Hemoglobin 9.6 G/DL (14.2-18.0) L Hematocrit 28.6 % (42.0-52.0) L Mean Corpuscular Volume 87 FL (80-99) Mean Corpuscular Hemoglobin 29.1 PG (27.0-31.0) Mean Corpuscular Hemoglobin Concent 33.6 G/DL (32.0-36.0) Red Cell Distribution Width 14.1 % (11.6-14.8) Platelet Count 578 K/UL (150-450) H Mean Platelet Volume 4.5 FL (6.5-10.1) L Neutrophils (%) (Auto) 84.1 % (45.0-75.0) H Lymphocytes (%) (Auto) 10.2 % (20.0-45.0) L Monocytes (%) (Auto) 5.2 % (1.0-10.0) Eosinophils (%) (Auto) 0.3 % (0.0-3.0) Basophils (%) (Auto) 0.3 % (0.0-2.0) Sodium Level 138 MMOL/L (136-145) Potassium Level 4.3 MMOL/L (3.5-5.1) Chloride Level 102 MMOL/L (98-107) Carbon Dioxide Level 28 MMOL/L (21-32) Anion Gap 9 mmol/L (5-15) Blood Urea Nitrogen 10 mg/dL (7-18) Creatinine 0.5 MG/DL (0.55-1.30) L Estimat Glomerular Filtration Rate > 60 mL/min (>60) Glucose Level 106 MG/DL (74-106) Calcium Level 8.7 MG/DL (8.5-10.1) Total Bilirubin 0.5 MG/DL (0.2-1.0) Aspartate Amino Transf (AST/SGOT) 20 U/L (15-37) Alanine Aminotransferase (ALT/SGPT) 34 U/L (12-78) Alkaline Phosphatase 151 U/L (46-116) H Troponin I 0.000 ng/mL (0.000-0.056) Total Protein 6.9 G/DL (6.4-8.2) Albumin 2.3 G/DL (3.4-5.0) L Globulin 4.6 g/dL Albumin/Globulin Ratio 0.5 (1.0-2.7) L Vancomycin Level Trough 11.8 ug/mL (5.0-12.0) Plan Problems: (1) Cellulitis of right leg Assessment & Plan: multiple large wounds on right lower extremity; chronic; present on admission; drainage; mild odor; prior surgical scars medial aspect with dry eschar dorsal aspect with gangrene and seropurulent drainage from open wound cellulitis from mid leg to foot second ray with gangrene s/p left AKA MRI : increased STIR and decreased T1 signal within the first metatarsal head, concerning for osteomyelitis More questionable signal abnormalities within the second third and fourth metatarsal heads, the second distal phalanx, and the first distal phalanx, could indicate acute osteomyelitis but is far from definitive given the exam quality WOUND CULTURE Final Organism 1 SERRATIA MARCESCENS GROWTH: 4+ Organism 2 PSEUDOMONAS AERUGINOSA GROWTH: 4+ Organism 3 PROTEUS PENNERI GROWTH: 4+ VASCULATURE: Aorta: No abdominal aortic aneurysm. No dissection. Celiac trunk and mesenteric arteries: No occlusion or significant stenosis. Renal arteries: No occlusion or significant stenosis. Right iliac arteries: No occlusion or significant stenosis. Right femoral/popliteal arteries: No occlusion or significant stenosis. Right calf/foot arteries: No occlusion or significant stenosis. Left iliac arteries: No occlusion or significant stenosis. Left femoral/popliteal arteries: No occlusion or significant stenosis. Left calf/foot arteries: No occlusion or significant stenosis. -unfortunately ill male with multiple comorbidities, vasculopathy, and chronic wounds. has required left AKA in past. unfortunately prognosis for right lower extremity poor as well and will likely require amputation at some point if not now. -currently infection draining from open area -pending venous and arterial studies -Patient known to Podiatry consultants. Appreciate input. -Appreciate Vascular surgery input as well. -plan for AKA once medically cleared -for now will continue with inpatient wound care, IV Abx as per ID, and further work up. thank you for this consultation. will follow with recs. Ottoniel Hall Nov 20, 2017 13:05
[2017-11-20 16:00] VITALS: BP 100/68
--- NOTE | 2017-11-20 16:07 | Infectious Diseases Prog Note ---
Assessment/Plan Assessment/Plan ASSESSMENT AND PLAN: 1. gram neg/polymicrobial right leg/foot/ankle wound infection/gangrene/? osteo , sepsis, leukocytosis - change to zosyn and vancomycin - will likely need right AKA, surgery note reviewed - monitor labs 2. Diabetes. 3. Hypertension. 4. Blood sugar and blood pressure control per primary. 5. The patient is anemic. 6. History of peripheral vascular disease and left leg amputation. 7. Continue treatment per primary for diabetes and hypertension. 8. No known allergies. 9. Social history is negative. 10. Family history is noncontributory. 11. MAR was noted. 12. Case was discussed with RN. 13. Case was discussed with Ivy Gilbert, nurse practitioner. 14. Continue treatment per primary consultants. 15. Notes and records were noted. 16. Orders were entered. 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 Subjective Constitutional: Denies: fever, other Respiratory: Denies: shortness of breath Cardiovascular: Denies: chest pain Gastrointestinal/Abdominal: Reports: other; Denies: nausea, vomiting, diarrhea Genitourinary: Denies: dysuria Psychiatric: Denies: depression Skin: Denies: rash Hematologic: Denies: bleeding Musculoskeletal: Denies: pain Allergies: Coded Allergies: No Known Allergies (Unverified , 11/16/17) Objective Vital Signs Last 24 Hour Vital Signs Date Time Temp Pulse Resp B/P (MAP) Pulse Ox O2 Delivery O2 Flow Rate FiO2 11/20/17 12:58 97.4 11/20/17 12:28 97.4 11/20/17 12:00 98.1 72 20 125/76 (92) 100 98.1 11/20/17 11:55 73 11/20/17 09:00 Room Air 11/20/17 08:30 144/77 11/20/17 08:00 97.4 84 20 144/77 (99) 98 97.4 11/20/17 07:54 78 11/20/17 04:00 98.4 80 20 129/69 (89) 99 98.4 11/20/17 03:59 82 11/20/17 00:00 98.1 79 20 120/74 (89) 99 98.1 11/19/17 23:50 79 11/19/17 21:00 Room Air 11/19/17 20:00 98.1 76 20 120/70 (87) 98 98.1 11/19/17 18:58 97.8 11/19/17 17:48 97.8 11/19/17 16:00 77 11/19/17 16:00 98.1 81 20 125/75 (92) 97 98.1 Height (Feet): 5 Height (Inches): 8.00 Weight (Pounds): 105 General Appearance: no acute distress, other - weak, opens eyes HEENT: normocephalic, atraumatic, anicteric, mucous membranes moist Respiratory/Chest: crackles/rales, rhonchi - bilaterally Cardiovascular: normal rate, regular rhythm, no gallop/murmur Abdomen: normal bowel sounds, soft, non tender, no organomegaly, non distended Genitourinary: other - no mujica Extremities: other - right LE with Skin: no rash Neurologic/Psychiatric: kiln burner II-XII grossly normal, alert, responsive, other - weak but responsive Lymphatic: no neck adenopathy Musculoskeletal: no effusion Objective MRI right foot: Impression: Very limited exam, as described In increased STIR and decreased T1 signal within the first metatarsal head, concerning for osteomyelitis More questionable signal abnormalities within the second third and fourth metatarsal heads, the second distal phalanx, and the first distal phalanx, could indicate acute osteomyelitis but is far from definitive given the exam quality Chest x-ray - nad, report noted Microbiology Date/Time Source Procedure Growth Status 11/16/17 19:15 Blood Blood Culture - Preliminary NO GROWTH AFTER 72 HOURS Resulted 11/16/17 21:00 Nasal Nares MRSA Culture - Final NO METHICILLIN RESISTANT STAPH AUREUS... Complete 11/16/17 21:00 Leg Right Gram Stain - Final Complete 11/16/17 21:00 Wound Culture - Final Serratia Marcescens Pseudomonas Aeruginosa Proteus Penneri Complete Laboratory Tests Test 11/20/17 04:15 11/20/17 08:00 White Blood Count 13.7 K/UL (4.8-10.8) H Red Blood Count 3.31 M/UL (4.70-6.10) L Hemoglobin 9.6 G/DL (14.2-18.0) L Hematocrit 28.6 % (42.0-52.0) L Mean Corpuscular Volume 87 FL (80-99) Mean Corpuscular Hemoglobin 29.1 PG (27.0-31.0) Mean Corpuscular Hemoglobin Concent 33.6 G/DL (32.0-36.0) Red Cell Distribution Width 14.1 % (11.6-14.8) Platelet Count 578 K/UL (150-450) H Mean Platelet Volume 4.5 FL (6.5-10.1) L Neutrophils (%) (Auto) 84.1 % (45.0-75.0) H Lymphocytes (%) (Auto) 10.2 % (20.0-45.0) L Monocytes (%) (Auto) 5.2 % (1.0-10.0) Eosinophils (%) (Auto) 0.3 % (0.0-3.0) Basophils (%) (Auto) 0.3 % (0.0-2.0) Sodium Level 138 MMOL/L (136-145) Potassium Level 4.3 MMOL/L (3.5-5.1) Chloride Level 102 MMOL/L (98-107) Carbon Dioxide Level 28 MMOL/L (21-32) Anion Gap 9 mmol/L (5-15) Blood Urea Nitrogen 10 mg/dL (7-18) Creatinine 0.5 MG/DL (0.55-1.30) L Estimat Glomerular Filtration Rate > 60 mL/min (>60) Glucose Level 106 MG/DL (74-106) Calcium Level 8.7 MG/DL (8.5-10.1) Total Bilirubin 0.5 MG/DL (0.2-1.0) Aspartate Amino Transf (AST/SGOT) 20 U/L (15-37) Alanine Aminotransferase (ALT/SGPT) 34 U/L (12-78) Alkaline Phosphatase 151 U/L (46-116) H Troponin I 0.000 ng/mL (0.000-0.056) Total Protein 6.9 G/DL (6.4-8.2) Albumin 2.3 G/DL (3.4-5.0) L Globulin 4.6 g/dL Albumin/Globulin Ratio 0.5 (1.0-2.7) L Vancomycin Level Trough 11.8 ug/mL (5.0-12.0) Current Medications Medications (Trade) Dose Ordered Sig/Abimael Route PRN Reason Start Time Stop Time Status Last Admin Dose Admin Acetaminophen (Tylenol) 325 mg Q4H PRN ORAL Mild Pain/Temp > 100.5 11/16/17 23:00 12/16/17 22:59 Acetaminophen/ Hydrocodone Bitart ([place] 5/325) 1 tab Q4H PRN ORAL Moderate Pain (Pain Scale 4-6) 11/16/17 23:00 11/23/17 22:59 11/20/17 03:00 Aspirin (Ecotrin) 81 mg DAILY ORAL 11/17/17 09:00 12/17/17 08:59 11/20/17 08:32 Atorvastatin Calcium (Lipitor) 20 mg BEDTIME ORAL 11/18/17 21:00 12/17/17 20:59 11/19/17 20:40 Clopidogrel Bisulfate (Plavix) 75 mg DAILY ORAL 11/17/17 09:00 12/17/17 08:59 11/20/17 08:32 Dextrose (Dextrose 50%) 25 ml STAT PRN IV Hypoglycemia 11/16/17 23:00 12/16/17 22:59 Dextrose (Dextrose 50%) 50 ml STAT PRN IV Hypoglycemia 11/16/17 23:00 12/16/17 22:59 Dextrose/ Electrolytes 1,000 ml @ 75 mls/hr [id number] IV 11/20/17 23:00 12/20/17 22:59 Docusate Sodium (Colace) 100 mg DAILY ORAL 11/17/17 09:00 12/17/17 08:59 11/20/17 08:32 Furosemide (Lasix) 40 mg DAILY ORAL 11/17/17 09:00 12/17/17 08:59 11/20/17 08:32 Heparin Sodium (Porcine) (Heparin 5000 units/ml) 5,000 units EVERY 12 HOURS SUBQ 11/17/17 09:00 12/17/17 08:59 11/20/17 08:31 Insulin Aspart (NovoLOG) BEFORE MEALS AND HS SUBQ 11/17/17 06:30 12/17/17 06:29 11/20/17 12:18 Lisinopril (Prinivil) 10 mg DAILY ORAL 11/17/17 09:00 12/17/17 08:59 11/20/17 08:30 Morphine Sulfate (Morphine Sulfate) 2 mg Q3H PRN IVP Severe Pain (Pain Scale 7-10) 11/17/17 08:00 11/24/17 07:59 11/20/17 12:28 Piperacillin Sod/ Tazobactam Sod 3.375 gm/Dextrose 110 ml @ 27.5 mls/hr Q8HR@0400,1200,2000 IVPB 11/20/17 20:00 11/27/17 19:59 Quetiapine Fumarate (SEROquel) 25 mg Q6H PRN ORAL For Anxiety 11/18/17 22:30 12/18/17 22:29 Vancomycin HCl (Vanco rx to dose) 1 ea DAILY PRN MISC Per rx protocol 11/20/17 15:45 12/20/17 15:44 Vancomycin HCl 1 gm/Dextrose 275 ml @ 183.708 mls/hr Q8HR@0100,0900,1700 IVPB 11/20/17 17:00 11/25/17 16:59 Veronica Donohue MD Nov 20, 2017 16:07
[2017-11-20] MEDS ORDERED: Vancomycin 1gm/D5W 275ml IVPB SCH ×2 (17:00)
[2017-11-20 20:00] VITALS: BP 121/74
[2017-11-20] MEDS ORDERED: Piperacillin/Tazobactam 3.375 GM in D5W 110 ML IVPB SCH (20:00)
[2017-11-20] MEDS: Atorvastatin 20mg tab ORAL SCH (21:47)
[2017-11-20] MEDS: D5 1/2NS w/KCl 20mEq 1,000 ML IV SCH (21:47)
[2017-11-20] MEDS ORDERED: D5 1/2NS w/KCl 20mEq 1,000 ML IV SCH (23:00)
[2017-11-21] VITALS: BP 129/76
[2017-11-21] MEDS: Morphine Sulfate 2mg/ml Inj(IV/IM USE ONLY) IVP PRN ×4 (01:28→18:49)
[2017-11-21] MEDS: Vancomycin 1 GM in D5W 275 ML IVPB SCH ×4 (01:28→18:24)
[2017-11-21 04:00] VITALS: BP 128/67
[2017-11-21] MEDS: Piperacillin/Tazobactam 3.375 GM in D5W 110 ML IVPB SCH ×3 (04:21→20:20)
[2017-11-21] MEDS: NovoLOG Insulin Flexpen SUBQ SCH ×4 (06:30→20:23)
[2017-11-21 06:37] LABS: BASOPHILS % (AUTO) 0.4 % (0.0-2.0); EOSINOPHILS % (AUTO) 0.3 % (0.0-3.0); HEMOGLOBIN 10.2 G/DL (14.2-18.0); LYMPHOCYTES % (AUTO) 10.8 % (20.0-45.0); MEAN CORPUSCULAR VOLUME 87 FL (80-99); MONOCYTES % (AUTO) 4.1 % (1.0-10.0); NEUTROPHILS % (AUTO) 84.4 % (45.0-75.0); PLATELET COUNT 488 K/UL (150-450); RED BLOOD COUNT 3.55 M/UL (4.70-6.10); RED CELL DISTRIBUTION WIDTH 14.5 % (11.6-14.8); WHITE BLOOD COUNT 12.1 K/UL (4.8-10.8)
[2017-11-21 06:51] LABS: ANION GAP 8 mmol/L (5-15); BLOOD UREA NITROGEN 10 mg/dL (7-18); CALCIUM 8.5 MG/DL (8.5-10.1); CARBON DIOXIDE 26 MMOL/L (21-32); CHLORIDE 102 MMOL/L (98-107); CREATININE 0.5 MG/DL (0.55-1.30); POTASSIUM 4.2 MMOL/L (3.5-5.1); SODIUM 136 MMOL/L (136-145)
[2017-11-21 06:52] LABS: ANION GAP 8 mmol/L (5-15); BLOOD UREA NITROGEN 10 mg/dL (7-18); CALCIUM 8.7 MG/DL (8.5-10.1); CARBON DIOXIDE 28 MMOL/L (21-32); CHLORIDE 101 MMOL/L (98-107); CREATININE 0.5 MG/DL (0.55-1.30); SODIUM 137 MMOL/L (136-145)
[2017-11-21 08:00] VITALS: BP 118/67
[2017-11-21 08:02] LABS: INR 1.2 (0.9-1.1)
[2017-11-21] MEDS: Heparin 5000 units/ml inj SUBQ SCH ×3 (09:00→20:44)
[2017-11-21] MEDS: Lisinopril 20mg tab ORAL SCH (09:00)
[2017-11-21] MEDS: D5 1/2NS w/KCl 20mEq 1,000 ML IV SCH ×2 (09:58→14:12)
--- NOTE | 2017-11-21 10:11 | General Surgery Progress Note ---
General Surgery-Progress Note Subjective Additional Comments no acute events. doing well. leukocytosis improving Objective Last 24 Hour Vital Signs Date Time Temp Pulse Resp B/P (MAP) Pulse Ox O2 Delivery O2 Flow Rate FiO2 11/21/17 08:41 97.3 11/21/17 08:00 97.3 75 18 118/67 (84) 96 97.3 11/21/17 04:00 97.4 83 20 128/67 (87) 97 97.4 11/21/17 00:00 97.6 77 19 129/76 (93) 96 97.6 11/20/17 21:00 Room Air 11/20/17 20:00 97.2 82 20 121/74 (90) 98 97.2 11/20/17 17:59 98.3 11/20/17 17:29 98.3 11/20/17 16:00 98.3 74 20 100/68 (79) 96 98.3 11/20/17 15:49 63 11/20/17 12:28 97.4 11/20/17 12:00 98.1 72 20 125/76 (92) 100 98.1 11/20/17 11:55 73 I&O Intake and Output 11/20/17 11/21/17 19:00 07:00 Intake Total 1732.042 ml 887.500 ml Output Total 1500 ml 2000 ml Balance 232.042 ml -1112.500 ml Intake Oral 1060 ml IV Total 672.042 ml 887.500 ml Output Urine Total 1500 ml 2000 ml Dressing: saturated Wound: other Drains: none Cardiovascular: RSR Respiratory: clear Abdomen: soft, flat, non-tender, present bowel sounds Extremities: edema, tenderness, cyanosis Laboratory Tests Test 11/21/17 06:15 11/21/17 07:40 White Blood Count 12.1 K/UL (4.8-10.8) H Red Blood Count 3.55 M/UL (4.70-6.10) L Hemoglobin 10.2 G/DL (14.2-18.0) L Hematocrit 31.0 % (42.0-52.0) L Mean Corpuscular Volume 87 FL (80-99) Mean Corpuscular Hemoglobin 28.6 PG (27.0-31.0) Mean Corpuscular Hemoglobin Concent 32.9 G/DL (32.0-36.0) Red Cell Distribution Width 14.5 % (11.6-14.8) Platelet Count 488 K/UL (150-450) H Mean Platelet Volume 4.4 FL (6.5-10.1) L Neutrophils (%) (Auto) 84.4 % (45.0-75.0) H Lymphocytes (%) (Auto) 10.8 % (20.0-45.0) L Monocytes (%) (Auto) 4.1 % (1.0-10.0) Eosinophils (%) (Auto) 0.3 % (0.0-3.0) Basophils (%) (Auto) 0.4 % (0.0-2.0) Sodium Level 136 MMOL/L (136-145) Potassium Level 4.2 MMOL/L (3.5-5.1) Chloride Level 102 MMOL/L (98-107) Carbon Dioxide Level 26 MMOL/L (21-32) Anion Gap 8 mmol/L (5-15) Blood Urea Nitrogen 10 mg/dL (7-18) Creatinine 0.5 MG/DL (0.55-1.30) L Estimat Glomerular Filtration Rate > 60 mL/min (>60) Glucose Level 138 MG/DL (74-106) H Calcium Level 8.5 MG/DL (8.5-10.1) Prothrombin Time 12.7 SEC (9.30-11.50) H Prothromb Time International Ratio 1.2 (0.9-1.1) H Plan Problems: (1) Cellulitis of right leg Assessment & Plan: multiple large wounds on right lower extremity; chronic; present on admission; drainage; mild odor; prior surgical scars medial aspect with dry eschar dorsal aspect with gangrene and seropurulent drainage from open wound cellulitis from mid leg to foot second ray with gangrene s/p left AKA MRI : increased STIR and decreased T1 signal within the first metatarsal head, concerning for osteomyelitis More questionable signal abnormalities within the second third and fourth metatarsal heads, the second distal phalanx, and the first distal phalanx, could indicate acute osteomyelitis but is far from definitive given the exam quality WOUND CULTURE Final Organism 1 SERRATIA MARCESCENS GROWTH: 4+ Organism 2 PSEUDOMONAS AERUGINOSA GROWTH: 4+ Organism 3 PROTEUS PENNERI GROWTH: 4+ VASCULATURE: Aorta: No abdominal aortic aneurysm. No dissection. Celiac trunk and mesenteric arteries: No occlusion or significant stenosis. Renal arteries: No occlusion or significant stenosis. Right iliac arteries: No occlusion or significant stenosis. Right femoral/popliteal arteries: No occlusion or significant stenosis. Right calf/foot arteries: No occlusion or significant stenosis. Left iliac arteries: No occlusion or significant stenosis. Left femoral/popliteal arteries: No occlusion or significant stenosis. Left calf/foot arteries: No occlusion or significant stenosis. -unfortunately ill male with multiple comorbidities, vasculopathy, and chronic wounds. has required left AKA in past. unfortunately prognosis for right lower extremity poor as well and will likely require amputation at some point if not now. -currently infection draining from open area -pending venous and arterial studies -Patient known to Podiatry consultants. Appreciate input. -Appreciate Vascular surgery input as well. -plan for AKA once medically cleared -bioethics consult for consent today -for now will continue with inpatient wound care, IV Abx as per ID, and further work up. thank you for this consultation. will follow with recs. Ottoniel Hall Nov 21, 2017 10:11
[2017-11-21] MEDS: Aspirin EC 81mg tab ORAL SCH (10:51)
[2017-11-21] MEDS: Docusate 100mg cap ORAL SCH (10:51)
[2017-11-21] MEDS: Furosemide 40mg tab ORAL SCH (10:51)
[2017-11-21 12:00] VITALS: BP 100/60
--- NOTE | 2017-11-21 12:45 | General Progress Note ---
Assessment/Plan Assessment/Plan Problem List: (1) DM (diabetes mellitus) ICD Codes: E11.9 - Type 2 diabetes mellitus without complications SNOMED: 58104348 (2) HTN (hypertension) ICD Codes: I10 - Essential (primary) hypertension SNOMED: 25047403 (3) PVD (peripheral vascular disease) ICD Codes: I73.9 - Peripheral vascular disease, unspecified SNOMED: 937285260 (4) Gangrene ICD Codes: I96 - Gangrene, not elsewhere classified SNOMED: 568793367 (5) Sepsis ICD Codes: A41.9 - Sepsis, unspecified organism SNOMED: 86240636 (6) s/p left above the knee amputation (7) s/p right lower extremity angioplasty (8) Anemia ICD Codes: D64.9 - Anemia, unspecified SNOMED: 720571322 (9) s/p right leg femoral tibial bypass graft, patent Status: stable, progressing Assessment/Plan - General surgery consulted, Dr. Hall, appreciate rec's - Podiatry consulted, Dr. Paniagua - ID consulted, Dr. Nieves, appreciate rec's - Vascular surgery consulted, Dr. Mae - Hematology consulted, Dr. Resendiz - s/p 1 unit pRBC transfusion for Hgb 7 on 11/18 - Check stool OB - EKG NSR. CXR with no acute pathology. CBC, CMP, coags reviewed. - Troponin negative - ECHO with 60-5% LVEF with no wall motion abnormality - Trend WBC - Trend H/H - F/u ESR, CRP -- elevated - F/u blood cx, urine cx - empiric IV abx (vancomycin, cefepime, flagyl) (11/17 - ) - F/u wound cx -- multiple organisms growing - F/u venous and arterial duplex of bilateral lower extremities - F/u CT chest angio with bilateral leg runoff w/ IV contrast -- 1. Extensive atherosclerotic calcifications in the distal abdominal aorta, common iliac arteries, external iliac arteries, without evidence of anginal dilatation or dissection. Moderate stenosis in bilateral common iliac arteries. 2. Diffuse colonic and rectal fecal retention may suggest constipation and/or impaction. - F/u MRI of right foot and ankle to r/o osteomyelitis -- possible acute osteomyelitis on the 1st to 4th metatarsal heads - A1c 7.0 - SSi - LDL 31 - Continue home meds - Wound care - Pain control and supportive care - Scheduled for R AKA pending bioethics approval. Bioethics not available until today. Based on the patient's medical history, and other available ancillary data, the patient is a INTERMEDIATE risk for an INTERMEDIATE risk procedure. Per the most recent ACC/AHA guidelines, the patient does not need any further cardiopulmonary testing prior to the procedure and there do not appear to be any clear medical contraindications to proceeding with the proposed procedure. Patient is agreeable to procedure but per psychiatry, patient has no capacity. Bioethics consult placed. [employer] contacted for prosthetics hardware. DVT Prophylaxis: HSQ Code Status: Full Hospital Classification Declaration: Based on this initial evaluation, and depending on the patient's clinical course, I anticipate that this patient will require hospitalization for 4-5 days for sepsis, gangrene and close respiratory/ hemodynamic monitoring. Disposition: Once the patient is stable to leave the hospital, I anticipate the patient will likely be discharged to the following environment: [facility] I spent 31 minutes on this patient's case, and 25 minutes were dedicated to counseling and/or care coordination. Discussed with patient/family, nursing staff, SW/CM, and all consultants regarding clinical status, treatment course, and disposition planning. Time of note may not reflect time of encounter. Subjective Date patient seen: Nov 21, 2017 Time patient seen: 11:11 ROS Limited/Unobtainable: Yes - Patient with flucutating mental status Constitutional: Reports: malaise, weakness HEENT: Reports: no symptoms Cardiovascular: Reports: no symptoms Respiratory: Reports: no symptoms Gastrointestinal/Abdominal: Reports: no symptoms Genitourinary: Reports: no symptoms Neurologic/Psychiatric: Reports: no symptoms Endocrine: Reports: no symptoms Hematologic/Lymphatic: Reports: no symptoms Allergies: Coded Allergies: No Known Allergies (Unverified , 11/16/17) All Systems: reviewed and negative except above Subjective No acute events overnight Patient c/o leg pain Objective Last 24 Hour Vital Signs Date Time Temp Pulse Resp B/P (MAP) Pulse Ox O2 Delivery O2 Flow Rate FiO2 11/21/17 12:00 98.1 72 18 100/60 (73) 97 98.1 75 11/21/17 09:11 97.3 11/21/17 09:00 Room Air 11/21/17 09:00 118/67 11/21/17 08:41 97.3 11/21/17 08:00 97.3 75 18 118/67 (84) 96 97.3 11/21/17 04:00 97.4 83 20 128/67 (87) 97 97.4 11/21/17 00:00 97.6 77 19 129/76 (93) 96 97.6 11/20/17 21:00 Room Air 11/20/17 20:00 97.2 82 20 121/74 (90) 98 97.2 11/20/17 17:59 98.3 11/20/17 17:29 98.3 11/20/17 16:00 98.3 74 20 100/68 (79) 96 98.3 11/20/17 15:49 63 Intake and Output 11/20/17 11/21/17 19:00 07:00 Intake Total 1732.042 ml 887.500 ml Output Total 1500 ml 2000 ml Balance 232.042 ml -1112.500 ml Intake Oral 1060 ml IV Total 672.042 ml 887.500 ml Output Urine Total 1500 ml 2000 ml Laboratory Tests 11/21/17 06:15: White Blood Count 12.1H, Red Blood Count 3.55L, Hemoglobin 10.2L, Hematocrit 31.0L, Mean Corpuscular Volume 87, Mean Corpuscular Hemoglobin 28.6, Mean Corpuscular Hemoglobin Concent 32.9, Red Cell Distribution Width 14.5, Platelet Count 488H, Mean Platelet Volume 4.4L, Neutrophils (%) (Auto) 84.4H, Lymphocytes (%) (Auto) 10.8L, Monocytes (%) (Auto) 4.1, Eosinophils (%) (Auto) 0.3, Basophils (%) (Auto) 0.4, Sodium Level 136, Potassium Level 4.2, Chloride Level 102, Carbon Dioxide Level 26, Anion Gap 8, Blood Urea Nitrogen 10, Creatinine 0.5L, Estimat Glomerular Filtration Rate > 60, Glucose Level 138H, Calcium Level 8.5 11/21/17 07:40: Prothrombin Time 12.7H, Prothromb Time International Ratio 1.2H Height (Feet): 5 Height (Inches): 8.00 Weight (Pounds): 105 Barak Mcbride M.D. Nov 21, 2017 12:45
--- NOTE | 2017-11-21 12:47 | General Progress Note ---
Progress Note Progress Note Bioethics Committee The Committee is asked to opine as to whether the patient can consent for surgery to amputate his infected right leg. He was seen by psychiatrist who felt that his mental status was fluctuating and was concerned about his competenc to give consent. Ysabel Louis (psych social worker), Karolyn (nurse) met with the patient who was wide awake and very interactive. He spoke in Kyrgyz and Karolyn translated. He stated that his infected right leg hurts a lot at night and that he is aware that it is infected and needs amputation. He already has a left AK amputation. Based on this conversation the Committee felt that the patient can sign the consent. Alternatively two physicians could sign and the procedure, which is clearly medically necessary, can go forward. Adiel Hernandez M.D. Bioethics [employer] Adiel Hernandez MD Nov 21, 2017 12:47
--- NOTE | 2017-11-21 14:19 | General Progress Note ---
Assessment/Plan Assessment/Plan dementia the pt packs capacity to make decisions seroquel prn for agitation Subjective Date patient seen: Nov 21, 2017 Neurologic/Psychiatric: Reports: anxiety, depressed Allergies: Coded Allergies: No Known Allergies (Unverified , 11/16/17) Objective Last 24 Hour Vital Signs Date Time Temp Pulse Resp B/P (MAP) Pulse Ox O2 Delivery O2 Flow Rate FiO2 11/21/17 12:00 98.1 72 18 100/60 (73) 97 98.1 75 11/21/17 09:11 97.3 11/21/17 09:00 Room Air 11/21/17 09:00 118/67 11/21/17 08:41 97.3 11/21/17 08:00 97.3 75 18 118/67 (84) 96 97.3 11/21/17 04:00 97.4 83 20 128/67 (87) 97 97.4 11/21/17 00:00 97.6 77 19 129/76 (93) 96 97.6 11/20/17 21:00 Room Air 11/20/17 20:00 97.2 82 20 121/74 (90) 98 97.2 11/20/17 17:59 98.3 11/20/17 17:29 98.3 11/20/17 16:00 98.3 74 20 100/68 (79) 96 98.3 11/20/17 15:49 63 Intake and Output 11/20/17 11/21/17 19:00 07:00 Intake Total 1732.042 ml 887.500 ml Output Total 1500 ml 2000 ml Balance 232.042 ml -1112.500 ml Intake Oral 1060 ml IV Total 672.042 ml 887.500 ml Output Urine Total 1500 ml 2000 ml Laboratory Tests 11/21/17 06:15: White Blood Count 12.1H, Red Blood Count 3.55L, Hemoglobin 10.2L, Hematocrit 31.0L, Mean Corpuscular Volume 87, Mean Corpuscular Hemoglobin 28.6, Mean Corpuscular Hemoglobin Concent 32.9, Red Cell Distribution Width 14.5, Platelet Count 488H, Mean Platelet Volume 4.4L, Neutrophils (%) (Auto) 84.4H, Lymphocytes (%) (Auto) 10.8L, Monocytes (%) (Auto) 4.1, Eosinophils (%) (Auto) 0.3, Basophils (%) (Auto) 0.4, Sodium Level 136, Potassium Level 4.2, Chloride Level 102, Carbon Dioxide Level 26, Anion Gap 8, Blood Urea Nitrogen 10, Creatinine 0.5L, Estimat Glomerular Filtration Rate > 60, Glucose Level 138H, Calcium Level 8.5 11/21/17 07:40: Prothrombin Time 12.7H, Prothromb Time International Ratio 1.2H Height (Feet): 5 Height (Inches): 8.00 Weight (Pounds): 105 General Appearance: no apparent distress, alert, confused Valerio Cassidy MD Nov 21, 2017 14:19
[2017-11-21 16:00] VITALS: BP 120/67
[2017-11-21 20:00] VITALS: BP 119/68
[2017-11-21] MEDS: Atorvastatin 20mg tab ORAL SCH (20:20)
[2017-11-22] VITALS: BP 117/61
[2017-11-22] MEDS: Vancomycin 1 GM in D5W 275 ML IVPB SCH ×3 (00:50→17:05)
[2017-11-22 04:00] VITALS: BP 129/73
[2017-11-22] MEDS: Piperacillin/Tazobactam 3.375 GM in D5W 110 ML IVPB SCH ×3 (04:22→20:48)
[2017-11-22] MEDS: Morphine Sulfate 2mg/ml Inj(IV/IM USE ONLY) IVP PRN (04:58)
[2017-11-22] MEDS: NovoLOG Insulin Flexpen SUBQ SCH ×4 (06:13→21:27)
[2017-11-22] MEDS: D5 1/2NS w/KCl 20mEq 1,000 ML IV SCH ×2 (06:13→20:47)
[2017-11-22 08:00] VITALS: BP 113/65
[2017-11-22] MEDS: Furosemide 40mg tab ORAL SCH (09:00)
[2017-11-22] MEDS: Aspirin EC 81mg tab ORAL SCH (09:00)
[2017-11-22] MEDS: Docusate 100mg cap ORAL SCH (09:00)
[2017-11-22] MEDS: Lisinopril 20mg tab ORAL SCH (09:00)
[2017-11-22] MEDS: Heparin 5000 units/ml inj SUBQ SCH ×2 (09:00→20:49)
--- NOTE | 2017-11-22 10:55 | General Progress Note ---
Assessment/Plan Status: stable Assessment/Plan dementia the pt packs capacity to make decisions seroquel prn for agitation Subjective Date patient seen: Nov 22, 2017 Neurologic/Psychiatric: Reports: anxiety, depressed Allergies: Coded Allergies: No Known Allergies (Unverified , 11/16/17) Objective Last 24 Hour Vital Signs Date Time Temp Pulse Resp B/P (MAP) Pulse Ox O2 Delivery O2 Flow Rate FiO2 11/22/17 09:00 113/65 11/22/17 08:55 100.0 11/22/17 08:15 Room Air 11/22/17 08:00 100.0 104 20 113/65 (81) 98 100.0 11/22/17 04:00 99.2 87 18 129/73 (91) 97 99.2 87 11/22/17 00:00 98.2 62 20 117/61 (79) 94 98.2 62 11/21/17 21:00 Room Air 11/21/17 20:00 97.3 89 20 119/68 (85) 98 97.3 89 11/21/17 19:19 97.5 11/21/17 18:49 97.5 11/21/17 16:00 97.5 75 18 120/67 (84) 97 97.5 75 11/21/17 12:00 98.1 72 18 100/60 (73) 97 98.1 75 Intake and Output 11/21/17 11/22/17 19:00 07:00 Intake Total 1522.5 ml 1282.416 ml Output Total 1200 ml 2100 ml Balance 322.5 ml -817.584 ml Intake Oral 360 ml IV Total 1162.5 ml 1282.416 ml Output Urine Total 1200 ml 2100 ml Laboratory Tests 11/21/17 16:00: Vancomycin Level Trough 16.4H Height (Feet): 5 Height (Inches): 8.00 Weight (Pounds): 105 Valerio Cassidy MD Nov 22, 2017 10:55
[2017-11-22 12:00] VITALS: BP 132/81
[2017-11-22] MEDS: Norco 5mg/325mg tab ORAL PRN ×3 (12:23→21:16)
--- NOTE | 2017-11-22 13:02 | Infectious Diseases Prog Note ---
Assessment/Plan Assessment/Plan ASSESSMENT AND PLAN: 1. pseudomonas/serratia/proteus polymicrobial right leg/foot/ankle wound infection/gangrene/? osteo, sepsis, leukocytosis - zosyn and vancomycin - right aka planned - monitor labs and temps, low grade temps noted, leukocytosis better - low grade fevers 2. Diabetes. 3. Hypertension. 4. Blood sugar and blood pressure control per primary. 5. The patient is anemic. 6. History of peripheral vascular disease and left leg amputation. 7. Continue treatment per primary for diabetes and hypertension. 8. No known allergies. 9. Social history is negative. 10. Family history is noncontributory. 11. MAR was noted. 12. Case was discussed with RN. 13. Case was discussed with Ivy Gilbert, nurse practitioner. 14. Continue treatment per primary consultants. 15. Notes and records were noted. 16. Orders were entered. 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 Subjective Constitutional: Reports: fever - lgt noted, fatigue, other - alert, responsive Respiratory: Denies: shortness of breath Cardiovascular: Denies: chest pain Gastrointestinal/Abdominal: Denies: nausea, vomiting, diarrhea Genitourinary: Reports: other - no mujica Neurologic: Denies: headache Psychiatric: Denies: depression Skin: Denies: rash Hematologic: Denies: bleeding Musculoskeletal: Denies: pain Allergies: Coded Allergies: No Known Allergies (Unverified , 11/16/17) Objective Vital Signs Last 24 Hour Vital Signs Date Time Temp Pulse Resp B/P (MAP) Pulse Ox O2 Delivery O2 Flow Rate FiO2 11/22/17 09:54 100.2 11/22/17 09:00 113/65 11/22/17 08:55 100.0 11/22/17 08:15 Room Air 11/22/17 08:00 100.0 104 20 113/65 (81) 98 100.0 11/22/17 04:00 99.2 87 18 129/73 (91) 97 99.2 87 11/22/17 00:00 98.2 62 20 117/61 (79) 94 98.2 62 11/21/17 21:00 Room Air 11/21/17 20:00 97.3 89 20 119/68 (85) 98 97.3 89 11/21/17 19:19 97.5 11/21/17 18:49 97.5 11/21/17 16:00 97.5 75 18 120/67 (84) 97 97.5 75 Height (Feet): 5 Height (Inches): 8.00 Weight (Pounds): 105 General Appearance: WD/WN HEENT: normocephalic, atraumatic, anicteric, mucous membranes moist Respiratory/Chest: lungs clear, normal breath sounds, no respiratory distress Cardiovascular: normal rate, regular rhythm, no gallop/murmur Abdomen: normal bowel sounds, soft, non tender, no organomegaly, non distended Genitourinary: other - no mujica Extremities: other - right foot covered Skin: no rash, other - right foot wound covered Neurologic/Psychiatric: looper fixer II-XII grossly normal, alert, responsive Lymphatic: no neck adenopathy Musculoskeletal: no effusion Objective MRI right foot: Impression: Very limited exam, as described In increased STIR and decreased T1 signal within the first metatarsal head, concerning for osteomyelitis More questionable signal abnormalities within the second third and fourth metatarsal heads, the second distal phalanx, and the first distal phalanx, could indicate acute osteomyelitis but is far from definitive given the exam quality Chest x-ray - nad, report noted Microbiology Date/Time Source Procedure Growth Status 11/16/17 19:15 Blood Blood Culture - Final NO GROWTH AFTER 5 DAYS Complete 11/16/17 21:00 Nasal Nares MRSA Culture - Final NO METHICILLIN RESISTANT STAPH AUREUS... Complete 11/16/17 21:00 Leg Right Gram Stain - Final Complete 11/16/17 21:00 Wound Culture - Final Serratia Marcescens Pseudomonas Aeruginosa Proteus Penneri Complete Labs Test 11/20/17 04:15 11/20/17 08:00 11/21/17 06:15 11/21/17 07:40 White Blood Count 13.7 K/UL (4.8-10.8) 12.1 K/UL (4.8-10.8) Red Blood Count 3.31 M/UL (4.70-6.10) 3.55 M/UL (4.70-6.10) Hemoglobin 9.6 G/DL (14.2-18.0) 10.2 G/DL (14.2-18.0) Hematocrit 28.6 % (42.0-52.0) 31.0 % (42.0-52.0) Mean Corpuscular Volume 87 FL (80-99) 87 FL (80-99) Mean Corpuscular Hemoglobin 29.1 PG (27.0-31.0) 28.6 PG (27.0-31.0) Mean Corpuscular Hemoglobin Concent 33.6 G/DL (32.0-36.0) 32.9 G/DL (32.0-36.0) Red Cell Distribution Width 14.1 % (11.6-14.8) 14.5 % (11.6-14.8) Platelet Count 578 K/UL (150-450) 488 K/UL (150-450) Mean Platelet Volume 4.5 FL (6.5-10.1) 4.4 FL (6.5-10.1) Neutrophils (%) (Auto) 84.1 % (45.0-75.0) 84.4 % (45.0-75.0) Lymphocytes (%) (Auto) 10.2 % (20.0-45.0) 10.8 % (20.0-45.0) Monocytes (%) (Auto) 5.2 % (1.0-10.0) 4.1 % (1.0-10.0) Eosinophils (%) (Auto) 0.3 % (0.0-3.0) 0.3 % (0.0-3.0) Basophils (%) (Auto) 0.3 % (0.0-2.0) 0.4 % (0.0-2.0) Sodium Level 138 MMOL/L (136-145) 136 MMOL/L (136-145) Potassium Level 4.3 MMOL/L (3.5-5.1) 4.2 MMOL/L (3.5-5.1) Chloride Level 102 MMOL/L (98-107) 102 MMOL/L (98-107) Carbon Dioxide Level 28 MMOL/L (21-32) 26 MMOL/L (21-32) Anion Gap 9 mmol/L (5-15) 8 mmol/L (5-15) Blood Urea Nitrogen 10 mg/dL (7-18) 10 mg/dL (7-18) Creatinine 0.5 MG/DL (0.55-1.30) 0.5 MG/DL (0.55-1.30) Estimat Glomerular Filtration Rate > 60 mL/min (>60) > 60 mL/min (>60) Glucose Level 106 MG/DL (74-106) 138 MG/DL (74-106) Calcium Level 8.7 MG/DL (8.5-10.1) 8.5 MG/DL (8.5-10.1) Total Bilirubin 0.5 MG/DL (0.2-1.0) Aspartate Amino Transf (AST/SGOT) 20 U/L (15-37) Alanine Aminotransferase (ALT/SGPT) 34 U/L (12-78) Alkaline Phosphatase 151 U/L (46-116) Troponin I 0.000 ng/mL (0.000-0.056) Total Protein 6.9 G/DL (6.4-8.2) Albumin 2.3 G/DL (3.4-5.0) Globulin 4.6 g/dL Albumin/Globulin Ratio 0.5 (1.0-2.7) Vancomycin Level Trough 11.8 ug/mL (5.0-12.0) Prothrombin Time 12.7 SEC (9.30-11.50) Prothromb Time International Ratio 1.2 (0.9-1.1) Test 11/21/17 16:00 Vancomycin Level Trough 16.4 ug/mL (5.0-12.0) Laboratory Tests Test 11/21/17 16:00 Vancomycin Level Trough 16.4 ug/mL (5.0-12.0) H Current Medications Medications (Trade) Dose Ordered Sig/Abimael Route PRN Reason Start Time Stop Time Status Last Admin Dose Admin Acetaminophen (Tylenol) 325 mg Q4H PRN ORAL Mild Pain/Temp > 100.5 11/20/17 20:39 12/16/17 20:38 11/22/17 08:55 Acetaminophen/ Hydrocodone Bitart ([place] 5/325) 1 tab Q4H PRN ORAL Moderate Pain (Pain Scale 4-6) 11/20/17 20:39 11/23/17 20:38 11/22/17 12:23 Aspirin (Ecotrin) 81 mg DAILY ORAL 11/21/17 09:00 12/17/17 08:59 11/21/17 10:51 Atorvastatin Calcium (Lipitor) 20 mg BEDTIME ORAL 11/20/17 21:00 12/17/17 20:59 11/21/17 20:20 Clopidogrel Bisulfate (Plavix) 75 mg DAILY ORAL 11/21/17 09:00 12/17/17 08:59 Dextrose (Dextrose 50%) 25 ml STAT PRN IV Hypoglycemia 11/20/17 23:00 12/16/17 22:59 Dextrose (Dextrose 50%) 50 ml STAT PRN IV Hypoglycemia 11/20/17 23:00 12/16/17 22:59 Dextrose/ Electrolytes 1,000 ml @ 75 mls/hr [id number] IV 11/20/17 20:38 12/20/17 20:37 11/22/17 06:13 Docusate Sodium (Colace) 100 mg DAILY ORAL 11/21/17 09:00 12/17/17 08:59 11/21/17 10:51 Furosemide (Lasix) 40 mg DAILY ORAL 11/21/17 09:00 12/17/17 08:59 11/21/17 10:51 Heparin Sodium (Porcine) (Heparin 5000 units/ml) 5,000 units EVERY 12 HOURS SUBQ 11/20/17 21:00 12/17/17 08:59 11/21/17 20:44 Insulin Aspart (NovoLOG) BEFORE MEALS AND HS SUBQ 11/20/17 21:00 12/17/17 06:29 11/22/17 12:25 Lisinopril (Prinivil) 10 mg DAILY ORAL 11/21/17 09:00 12/17/17 08:59 Morphine Sulfate (Morphine Sulfate) 2 mg Q3H PRN IVP Severe Pain (Pain Scale 7-10) 11/20/17 20:40 11/24/17 20:39 11/22/17 04:58 Piperacillin Sod/ Tazobactam Sod 3.375 gm/Dextrose 110 ml @ 27.5 mls/hr Q8HR@0400,1200,2000 IVPB 11/21/17 04:00 11/27/17 19:59 11/22/17 12:25 Quetiapine Fumarate (SEROquel) 25 mg Q6H PRN ORAL For Anxiety 11/20/17 20:40 12/18/17 20:39 11/22/17 00:57 Silver Sulfadiazine (Silvadene Cream 25gm) 1 applic Q6HR TOPIC 11/21/17 18:00 12/21/17 17:59 11/22/17 12:25 Vancomycin HCl (Vanco rx to dose) 1 ea DAILY PRN MISC Per rx protocol 11/21/17 09:00 12/20/17 15:44 Vancomycin HCl 1 gm/Dextrose 275 ml @ 183.708 mls/hr Q8HR@0100,0900,1700 IVPB 11/21/17 01:00 11/25/17 16:59 11/22/17 08:55 Veronica Donohue MD Nov 22, 2017 13:02
--- NOTE | 2017-11-22 13:13 | General Progress Note ---
Assessment/Plan Status: not improved Assessment/Plan Problem List: (1) DM (diabetes mellitus) ICD Codes: E11.9 - Type 2 diabetes mellitus without complications SNOMED: 43545858 (2) HTN (hypertension) ICD Codes: I10 - Essential (primary) hypertension SNOMED: 75259051 (3) PVD (peripheral vascular disease) ICD Codes: I73.9 - Peripheral vascular disease, unspecified SNOMED: 995788392 (4) Gangrene ICD Codes: I96 - Gangrene, not elsewhere classified SNOMED: 864734982 (5) Sepsis ICD Codes: A41.9 - Sepsis, unspecified organism SNOMED: 40793859 (6) s/p left above the knee amputation (7) s/p right lower extremity angioplasty (8) Anemia ICD Codes: D64.9 - Anemia, unspecified SNOMED: 671872251 (9) s/p right leg femoral tibial bypass graft, patent Status: stable, progressing Assessment/Plan - General surgery consulted, Dr. Hall, appreciate rec's - Podiatry consulted, Dr. Paniagua - ID consulted, Dr. Nieves, appreciate rec's - Vascular surgery consulted, Dr. Mae - Hematology consulted, Dr. Resendiz - s/p 1 unit pRBC transfusion for Hgb 7 on 11/18 - Check stool OB - EKG NSR. CXR with no acute pathology. CBC, CMP, coags reviewed. - Troponin negative - ECHO with 60-5% LVEF with no wall motion abnormality - Trend WBC - Trend H/H - F/u ESR, CRP -- elevated - F/u blood cx, urine cx - empiric IV abx (vancomycin, cefepime, flagyl) (11/17 - ) - F/u wound cx -- multiple organisms growing - s/p venous and arterial duplex of bilateral lower extremities - F/u CT chest angio with bilateral leg runoff w/ IV contrast -- 1. Extensive atherosclerotic calcifications in the distal abdominal aorta, common iliac arteries, external iliac arteries, without evidence of anginal dilatation or dissection. Moderate stenosis in bilateral common iliac arteries. 2. Diffuse colonic and rectal fecal retention may suggest constipation and/or impaction. - F/u MRI of right foot and ankle to r/o osteomyelitis -- possible acute osteomyelitis on the 1st to 4th metatarsal heads - A1c 7.0 - SSi - LDL 31 - Continue home meds - Wound care - Pain control and supportive care - Pending scheduling for R AKA s/p bioethics approval. input appreciated. Awaiting word from vascular surgery if procedure is to be done this week. If not , will discharge back to SNF and readmit for surgery Based on the patient's medical history, and other available ancillary data, the patient is a INTERMEDIATE risk for an INTERMEDIATE risk procedure. Per the most recent ACC/AHA guidelines, the patient does not need any further cardiopulmonary testing prior to the procedure and there do not appear to be any clear medical contraindications to proceeding with the proposed procedure. Patient is agreeable to procedure but per psychiatry, patient has no capacity. Bioethics consult placed. [employer] contacted for prosthetics hardware. DVT Prophylaxis: HSQ Code Status: Full Hospital Classification Declaration: Based on this initial evaluation, and depending on the patient's clinical course, I anticipate that this patient will require hospitalization for 4-5 days for sepsis, gangrene and close respiratory/ hemodynamic monitoring. Disposition: Once the patient is stable to leave the hospital, I anticipate the patient will likely be discharged to the following environment: [facility] I spent 45 minutes on this patient's case, and 25 minutes were dedicated to counseling and/or care coordination. Discussed with patient/family, nursing staff, SW/CM, and all consultants regarding clinical status, treatment course, and disposition planning. Time of note may not reflect time of encounter. Subjective Date patient seen: Nov 22, 2017 Time patient seen: 14:44 ROS Limited/Unobtainable: Yes Constitutional: Reports: malaise, weakness HEENT: Reports: no symptoms Cardiovascular: Reports: no symptoms Respiratory: Reports: no symptoms Gastrointestinal/Abdominal: Reports: no symptoms Genitourinary: Reports: no symptoms Neurologic/Psychiatric: Reports: no symptoms Endocrine: Reports: no symptoms Hematologic/Lymphatic: Reports: no symptoms Allergies: Coded Allergies: No Known Allergies (Unverified , 11/16/17) All Systems: reviewed and negative except above Subjective No acute events overnight Chart reviewed Patient c/o persistent leg pain Objective Last 24 Hour Vital Signs Date Time Temp Pulse Resp B/P (MAP) Pulse Ox O2 Delivery O2 Flow Rate FiO2 11/22/17 09:54 100.2 11/22/17 09:00 113/65 8/21/18 08:55 100.0 11/22/17 08:15 Room Air 11/22/17 08:00 100.0 104 20 113/65 (81) 98 100.0 11/22/17 04:00 99.2 87 18 129/73 (91) 97 99.2 87 11/22/17 00:00 98.2 62 20 117/61 (79) 94 98.2 62 11/21/17 21:00 Room Air 11/21/17 20:00 97.3 89 20 119/68 (85) 98 97.3 89 11/21/17 19:19 97.5 11/21/17 18:49 97.5 11/21/17 16:00 97.5 75 18 120/67 (84) 97 97.5 75 Intake and Output 11/21/17 11/22/17 19:00 07:00 Intake Total 1522.5 ml 1282.416 ml Output Total 1200 ml 2100 ml Balance 322.5 ml -817.584 ml Intake Oral 360 ml IV Total 1162.5 ml 1282.416 ml Output Urine Total 1200 ml 2100 ml Laboratory Tests 11/21/17 16:00: Vancomycin Level Trough 16.4H Height (Feet): 5 Height (Inches): 8.00 Weight (Pounds): 105 General Appearance: WD/WN, no apparent distress, lethargic, confused EENT: PERRL/EOMI, normal ENT inspection Neck: non-tender, normal alignment Cardiovascular: normal peripheral pulses, normal rate, regular rhythm Respiratory/Chest: chest wall non-tender, normal breath sounds, decreased breath sounds Abdomen: normal bowel sounds, non tender, soft Pelvis: normal external exam Genitourinary/Rectal: normal genital exam Extremities: other - dressings in place Edema: no edema noted Arm (L), no edema noted Arm (R) Edema: trace edema Neurologic: alert Skin: normal pigmentation, warm/dry Lymphatic: normal anterior cervical (L), normal anterior cervical (R) Barak Mcbride M.D. Nov 22, 2017 13:13
[2017-11-22 16:00] VITALS: BP 125/74
--- NOTE | 2017-11-22 18:04 | General Surgery Progress Note ---
General Surgery-Progress Note Subjective Additional Comments no acute events. ready for surgery Objective Last 24 Hour Vital Signs Date Time Temp Pulse Resp B/P (MAP) Pulse Ox O2 Delivery O2 Flow Rate FiO2 11/22/17 16:00 98.4 91 20 125/74 (91) 96 98.4 11/22/17 12:00 97.9 87 19 132/81 (98) 100 97.9 11/22/17 09:54 100.2 11/22/17 09:00 113/65 11/22/17 08:55 100.0 11/22/17 08:15 Room Air 11/22/17 08:00 100.0 104 20 113/65 (81) 98 100.0 11/22/17 04:00 99.2 87 18 129/73 (91) 97 99.2 87 11/22/17 00:00 98.2 62 20 117/61 (79) 94 98.2 62 11/21/17 21:00 Room Air 11/21/17 20:00 97.3 89 20 119/68 (85) 98 97.3 89 11/21/17 19:19 97.5 11/21/17 18:49 97.5 I&O Intake and Output 11/21/17 11/22/17 19:00 07:00 Intake Total 1522.5 ml 1282.416 ml Output Total 1200 ml 2100 ml Balance 322.5 ml -817.584 ml Intake Oral 360 ml IV Total 1162.5 ml 1282.416 ml Output Urine Total 1200 ml 2100 ml Dressing: saturated Wound: other Drains: none Cardiovascular: RSR Respiratory: clear Abdomen: soft, non-tender, present bowel sounds Extremities: cyanosis, other Plan Problems: (1) Cellulitis of right leg Assessment & Plan: multiple large wounds on right lower extremity; chronic; present on admission; drainage; mild odor; prior surgical scars medial aspect with dry eschar dorsal aspect with gangrene and seropurulent drainage from open wound cellulitis from mid leg to foot second ray with gangrene s/p left AKA MRI : increased STIR and decreased T1 signal within the first metatarsal head, concerning for osteomyelitis More questionable signal abnormalities within the second third and fourth metatarsal heads, the second distal phalanx, and the first distal phalanx, could indicate acute osteomyelitis but is far from definitive given the exam quality WOUND CULTURE Final Organism 1 SERRATIA MARCESCENS GROWTH: 4+ Organism 2 PSEUDOMONAS AERUGINOSA GROWTH: 4+ Organism 3 PROTEUS PENNERI GROWTH: 4+ VASCULATURE: Aorta: No abdominal aortic aneurysm. No dissection. Celiac trunk and mesenteric arteries: No occlusion or significant stenosis. Renal arteries: No occlusion or significant stenosis. Right iliac arteries: No occlusion or significant stenosis. Right femoral/popliteal arteries: No occlusion or significant stenosis. Right calf/foot arteries: No occlusion or significant stenosis. Left iliac arteries: No occlusion or significant stenosis. Left femoral/popliteal arteries: No occlusion or significant stenosis. Left calf/foot arteries: No occlusion or significant stenosis. -unfortunately ill male with multiple comorbidities, vasculopathy, and chronic wounds. has required left AKA in past. unfortunately prognosis for right lower extremity poor as well and will likely require amputation at some point if not now. -currently infection draining from open area -pending venous and arterial studies -Patient known to Podiatry consultants. Appreciate input. -Appreciate Vascular surgery input as well. -plan for AKA tomorrow -bioethics consult completed. appreciate input. okay for patient to consent or two physician consent. -for now will continue with inpatient wound care, IV Abx as per ID, and further work up. thank you for this consultation. will follow with recs. Ottoniel Hall Nov 22, 2017 18:04
[2017-11-22 20:00] VITALS: BP 116/67
[2017-11-22] MEDS: Atorvastatin 20mg tab ORAL SCH (20:46)
[2017-11-23] VITALS (14 sets, daily range): BP systolic 100–141; BP diastolic 60–69
[2017-11-23] MEDS: Morphine Sulfate 2mg/ml Inj(IV/IM USE ONLY) IVP PRN ×4 (00:48→12:44)
[2017-11-23] MEDS: Vancomycin 1 GM in D5W 275 ML IVPB SCH ×3 (03:19→17:00)
[2017-11-23] MEDS: Piperacillin/Tazobactam 3.375 GM in D5W 110 ML IVPB SCH ×3 (05:04→21:24)
[2017-11-23] MEDS: NovoLOG Insulin Flexpen SUBQ SCH ×4 (06:21→22:02)
[2017-11-23 08:21] LABS: BASOPHILS % (AUTO) 0.6 % (0.0-2.0); HEMATOCRIT 31.4 % (42.0-52.0); HEMOGLOBIN 10.4 G/DL (14.2-18.0); LYMPHOCYTES % (AUTO) 12.5 % (20.0-45.0); MEAN CORPUSCULAR VOLUME 86 FL (80-99); NEUTROPHILS % (AUTO) 80.9 % (45.0-75.0); PLATELET COUNT 401 K/UL (150-450); RED BLOOD COUNT 3.64 M/UL (4.70-6.10); RED CELL DISTRIBUTION WIDTH 15.3 % (11.6-14.8); WHITE BLOOD COUNT 6.4 K/UL (4.8-10.8)
[2017-11-23 08:44] LABS: INR 1.2 (0.9-1.1)
[2017-11-23] MEDS: Lisinopril 20mg tab ORAL SCH (08:49)
[2017-11-23] MEDS: Furosemide 40mg tab ORAL SCH (08:49)
[2017-11-23] MEDS: Docusate 100mg cap ORAL SCH (08:49)
[2017-11-23] MEDS: Heparin 5000 units/ml inj SUBQ SCH ×2 (08:50→21:00)
[2017-11-23 09:13] LABS: ANION GAP 10 mmol/L (5-15); BLOOD UREA NITROGEN 6 mg/dL (7-18); CALCIUM 8.7 MG/DL (8.5-10.1); CARBON DIOXIDE 25 MMOL/L (21-32); CHLORIDE 97 MMOL/L (98-107); CREATININE 0.5 MG/DL (0.55-1.30); POTASSIUM 3.8 MMOL/L (3.5-5.1); SODIUM 132 MMOL/L (136-145)
--- NOTE | 2017-11-23 11:10 | Cardiology Report ---
APPROVED REPORT EXAM: Two-dimensional and M-mode echocardiogram with Doppler and color Doppler. INDICATION PRE-OP M-Mode DIMENSIONS IVSd1.4 (0.7-1.1cm)Left Atrium (MM)2.9 (1.6-4.0cm) LVDd5.9 (3.5-5.6cm)Aortic Root1.8 (2.0-3.7cm) PWd1.7 (0.7-1.1cm)Aortic Cusp Exc.1.7 (1.5-2.0cm) IVSs2.2 cm LVDs3.9 (2.5-4.0cm) PWs2.5 cm Normal left ventricular chamber size, systolic function and wall motion. Left ventricular ejection fraction estimated to be 60-65%. No evidence of left ventricular hypertrophy. No evidence of pericardial effusion. All other cardiac chamber sizes are within normal limits. Focal aortic valve sclerosis with adequate cusp excursion. Thickened mitral valve leaflets with normal excursion. Mitral annulus and aortic root calcification. Pulmonic valve not well visualized. Normal tricuspid valve structure. IVC at l at size 2.0 with physiologic collapse. A color flow and spectral Doppler study was performed and revealed: No aortic regurgitation. Mild mitral regurgitation. Mild tricuspid regurgitation. Mitral diastolic velocities suggest reduced left ventricular relaxation c/w mild LV diastolic dysfunction (Grade I ). Tricuspid systolic velocities suggests peak right ventricular systolic pressure of 36mmHg,consistent with mild pulmonary hypertension.
--- NOTE | 2017-11-23 12:06 | General Progress Note ---
Assessment/Plan Status: stable, progressing Assessment/Plan dementia the pt packs capacity to make decisions seroquel prn for agitation Subjective Neurologic/Psychiatric: Reports: anxiety, depressed Allergies: Coded Allergies: No Known Allergies (Unverified , 11/16/17) Subjective the pt is complained about pain and is anxious Objective Last 24 Hour Vital Signs Date Time Temp Pulse Resp B/P (MAP) Pulse Ox O2 Delivery O2 Flow Rate FiO2 11/23/17 12:00 100.6 54 22 112/66 (81) 95 100.6 11/23/17 10:16 98.4 11/23/17 09:46 98.4 11/23/17 09:00 Room Air 11/23/17 08:49 106/66 11/23/17 08:00 98.4 92 20 106/66 (79) 99 98.4 11/23/17 06:05 99.0 11/23/17 05:06 101.7 11/23/17 04:00 101.7 84 17 121/67 (85) 99 101.7 11/23/17 00:26 99.5 84 17 113/69 (84) 97 99.5 11/22/17 21:00 Room Air 11/22/17 20:00 99.1 84 18 116/67 (83) 99 99.1 11/22/17 16:00 98.4 91 20 125/74 (91) 96 98.4 Intake and Output 11/22/17 11/23/17 19:00 07:00 Intake Total 1723.708 ml Output Total 1250 ml 950 ml Balance 473.708 ml -950 ml Intake Oral 640 ml IV Total 1083.708 ml Output Urine Total 1250 ml 950 ml # Bowel Movements 1 Laboratory Tests 11/23/17 07:55: White Blood Count 6.4, Red Blood Count 3.64L, Hemoglobin 10.4L, Hematocrit 31.4L , Mean Corpuscular Volume 86, Mean Corpuscular Hemoglobin 28.7, Mean Corpuscular Hemoglobin Concent 33.2, Red Cell Distribution Width 15.3H, Platelet Count 401, Mean Platelet Volume 4.4L, Neutrophils (%) (Auto) 80.9H, Lymphocytes (%) (Auto) 12.5L, Monocytes (%) (Auto) 6.0, Eosinophils (%) (Auto) 0.0, Basophils (%) (Auto) 0.6, Prothrombin Time 12.8H, Prothromb Time International Ratio 1.2H, Activated Partial Thromboplast Time 30, Sodium Level 132L, Potassium Level 3.8, Chloride Level 97L, Carbon Dioxide Level 25, Anion Gap 10, Blood Urea Nitrogen 6L, Creatinine 0.5L, Estimat Glomerular Filtration Rate > 60, Glucose Level 164H, Calcium Level 8.7 Height (Feet): 5 Height (Inches): 8.00 Weight (Pounds): 105 General Appearance: alert, agitated Neurologic: depressed affect Valerio Cassidy MD Nov 23, 2017 12:06
--- NOTE | 2017-11-23 12:23 | General Surgery Progress Note ---
General Surgery-Progress Note Subjective Additional Comments stable. doing well. leukocytosis improving with abx. ready for surgery today Objective Last 24 Hour Vital Signs Date Time Temp Pulse Resp B/P (MAP) Pulse Ox O2 Delivery O2 Flow Rate FiO2 11/23/17 12:00 100.6 54 22 112/66 (81) 95 100.6 11/23/17 10:16 98.4 11/23/17 09:46 98.4 11/23/17 09:00 Room Air 11/23/17 08:49 106/66 11/23/17 08:00 98.4 92 20 106/66 (79) 99 98.4 11/23/17 06:05 99.0 11/23/17 05:06 101.7 11/23/17 04:00 101.7 84 17 121/67 (85) 99 101.7 11/23/17 00:26 99.5 84 17 113/69 (84) 97 99.5 11/22/17 21:00 Room Air 11/22/17 20:00 99.1 84 18 116/67 (83) 99 99.1 11/22/17 16:00 98.4 91 20 125/74 (91) 96 98.4 I&O Intake and Output 11/22/17 11/23/17 19:00 07:00 Intake Total 1723.708 ml Output Total 1250 ml 950 ml Balance 473.708 ml -950 ml Intake Oral 640 ml IV Total 1083.708 ml Output Urine Total 1250 ml 950 ml # Bowel Movements 1 Dressing: saturated Wound: other Drains: none Cardiovascular: RSR Respiratory: clear Abdomen: soft, flat, non-tender, present bowel sounds Extremities: other Laboratory Tests Test 11/23/17 07:55 White Blood Count 6.4 K/UL (4.8-10.8) Red Blood Count 3.64 M/UL (4.70-6.10) L Hemoglobin 10.4 G/DL (14.2-18.0) L Hematocrit 31.4 % (42.0-52.0) L Mean Corpuscular Volume 86 FL (80-99) Mean Corpuscular Hemoglobin 28.7 PG (27.0-31.0) Mean Corpuscular Hemoglobin Concent 33.2 G/DL (32.0-36.0) Red Cell Distribution Width 15.3 % (11.6-14.8) H Platelet Count 401 K/UL (150-450) Mean Platelet Volume 4.4 FL (6.5-10.1) L Neutrophils (%) (Auto) 80.9 % (45.0-75.0) H Lymphocytes (%) (Auto) 12.5 % (20.0-45.0) L Monocytes (%) (Auto) 6.0 % (1.0-10.0) Eosinophils (%) (Auto) 0.0 % (0.0-3.0) Basophils (%) (Auto) 0.6 % (0.0-2.0) Prothrombin Time 12.8 SEC (9.30-11.50) H Prothromb Time International Ratio 1.2 (0.9-1.1) H Activated Partial Thromboplast Time 30 SEC (23-33) Sodium Level 132 MMOL/L (136-145) L Potassium Level 3.8 MMOL/L (3.5-5.1) Chloride Level 97 MMOL/L (98-107) L Carbon Dioxide Level 25 MMOL/L (21-32) Anion Gap 10 mmol/L (5-15) Blood Urea Nitrogen 6 mg/dL (7-18) L Creatinine 0.5 MG/DL (0.55-1.30) L Estimat Glomerular Filtration Rate > 60 mL/min (>60) Glucose Level 164 MG/DL (74-106) H Calcium Level 8.7 MG/DL (8.5-10.1) Plan Problems: (1) Cellulitis of right leg Assessment & Plan: multiple large wounds on right lower extremity; chronic; present on admission; drainage; mild odor; prior surgical scars medial aspect with dry eschar dorsal aspect with gangrene and seropurulent drainage from open wound cellulitis from mid leg to foot second ray with gangrene s/p left AKA MRI : increased STIR and decreased T1 signal within the first metatarsal head, concerning for osteomyelitis More questionable signal abnormalities within the second third and fourth metatarsal heads, the second distal phalanx, and the first distal phalanx, could indicate acute osteomyelitis but is far from definitive given the exam quality WOUND CULTURE Final Organism 1 SERRATIA MARCESCENS GROWTH: 4+ Organism 2 PSEUDOMONAS AERUGINOSA GROWTH: 4+ Organism 3 PROTEUS PENNERI GROWTH: 4+ VASCULATURE: Aorta: No abdominal aortic aneurysm. No dissection. Celiac trunk and mesenteric arteries: No occlusion or significant stenosis. Renal arteries: No occlusion or significant stenosis. Right iliac arteries: No occlusion or significant stenosis. Right femoral/popliteal arteries: No occlusion or significant stenosis. Right calf/foot arteries: No occlusion or significant stenosis. Left iliac arteries: No occlusion or significant stenosis. Left femoral/popliteal arteries: No occlusion or significant stenosis. Left calf/foot arteries: No occlusion or significant stenosis. -unfortunately ill male with multiple comorbidities, vasculopathy, and chronic wounds. has required left AKA in past. unfortunately prognosis for right lower extremity poor as well and will likely require amputation at some point if not now. -currently infection draining from open area -pending venous and arterial studies -Patient known to Podiatry consultants. Appreciate input. -Appreciate Vascular surgery input as well. -plan for AKA today -bioethics consult completed. appreciate input. okay for patient to consent or two physician consent. -for now will continue with inpatient wound care, IV Abx as per ID, and further work up. thank you for this consultation. will follow with recs. Ottoniel Hall Nov 23, 2017 12:23
--- NOTE | 2017-11-23 12:45 | Diagnostic Imaging Report ---
Indication: Cough Technique: One view of the chest Comparison: 11/16/2017 Findings: Patient is rotated to the right. There is some atelectasis at the right lung base. There may be blunting of right costophrenic sulcus. The remainder the lungs and pleural spaces are clear. The heart is borderline enlarged. The aorta is tortuous. Impression: Right basilar atelectasis and possible right pleural effusion Borderline cardiomegaly
[2017-11-23] MEDS ORDERED: NeoSporin Gu Irrig 1ml Amp IRRIG ONE (15:15)
[2017-11-23] MEDS: D5 1/2NS w/KCl 20mEq 1,000 ML IV SCH ×2 (15:18→21:24)
[2017-11-23] MEDS ORDERED: NS Irrig 1000ml ONE (15:30)
[2017-11-23] MEDS ORDERED: Sterile Water Irrig 1000ml IRRIG ONE (15:30)
[2017-11-23] MEDS ORDERED: Lidocaine 1% MPF 10mg/ml 5ml ONE (15:34)
[2017-11-23] MEDS ORDERED: fentaNYL 100 mcg/2 mL IV ONE (15:34)
[2017-11-23] MEDS ORDERED: Zemuron 50mg/5ml Inj IV ONE (15:35)
[2017-11-23] MEDS ORDERED: Propofol 200mg/20ml IV ONE (15:35)
[2017-11-23] MEDS ORDERED: Dexamethasone 4mg/ml vial ONE (15:35)
--- NOTE | 2017-11-23 15:37 | Pre-Procedure Note/Attestation ---
Pre-Procedure Note/Attestation Complete Prior to Procedure Planned Procedure: right Procedure Narrative: Right leg above knee amputation Indications for Procedure Pre-Operative Diagnosis: Advanced gangrene with knee contracture Attestation I attest that I discussed the nature of the procedure; its benefits; risks and complications; and alternatives (and the risks and benefits of such alternatives ), prior to the procedure, with the patient (or the patient's legal electronics parts sales representative). I attest that, if there was a reasonable possibility of needing a blood transfusion, the patient (or the patient's legal electronics parts sales representative) was given the [facility] standardized written summary, pursuant to the Tiago Ruddy Blood Safety Act ([place] Health and Safety Code # 1645, as amended). I attest that I re-evaluated the patient just prior to the surgery and that there has been no change in the patient's H&P, except as documented below: Harvinder Katz MD Nov 23, 2017 15:37
[2017-11-23] MEDS ORDERED: Bacitracin 50000 Units Vial ONE (15:38)
--- NOTE | 2017-11-23 16:45 | Anethesia Preoperative Eval ---
Anesthesia Pre-op PMH/ROS General Date of Evaluation: Nov 23, 2017 Time of Evaluation: 15:30 Anesthesiologist: ASA Score: ASA 4 Mallampati Score Class I : Soft palate, uvula, fauces, pillars visible Class II: Soft palate, uvula, fauces visible Class III: Soft palate, base of uvula visible Class IV: Only hard plate visible Mallampati Classification: Class II Surgeon: garcía Diagnosis: right leg cellulitis Surgical Procedure: right leg above knee amputation Allergies: Coded Allergies: No Known Allergies (Unverified , 11/16/17) Medications: see eMAR Past Medical History Cardiovascular: Reports: HTN, other - peripheral vasc disease Pulmonary: Denies: asthma, COPD, LUZ, other Endocrine: Reports: DM Hematology/Immune: Reports: anemia Musculoskeletal/Integumentary: Reports: other - ostoemylitis PSxH Narrative: left above knee amputaion Anesthesia Pre-op Phys. Exam Physician Exam Last Vital Signs Date Time Temp Pulse Resp B/P (MAP) Pulse Ox O2 Delivery O2 Flow Rate FiO2 11/23/17 13:14 100.6 11/23/17 12:00 54 22 112/66 (81) 95 11/23/17 09:00 Room Air Constitutional: NAD Cardiovascular: RRR Respiratory: CTA Gastrointestinal: S/NT/ND Airway Exam Mallampati Score: Class II MO: full ROM: full Teeth: missing Dentures: no upper, no lower Anesthesia Pre-op A/P Labs Hematology Test 11/23/17 07:55 White Blood Count 6.4 K/UL (4.8-10.8) Red Blood Count 3.64 M/UL (4.70-6.10) L Hemoglobin 10.4 G/DL (14.2-18.0) L Hematocrit 31.4 % (42.0-52.0) L Mean Corpuscular Volume 86 FL (80-99) Mean Corpuscular Hemoglobin 28.7 PG (27.0-31.0) Mean Corpuscular Hemoglobin Concent 33.2 G/DL (32.0-36.0) Red Cell Distribution Width 15.3 % (11.6-14.8) H Platelet Count 401 K/UL (150-450) Mean Platelet Volume 4.4 FL (6.5-10.1) L Neutrophils (%) (Auto) 80.9 % (45.0-75.0) H Lymphocytes (%) (Auto) 12.5 % (20.0-45.0) L Monocytes (%) (Auto) 6.0 % (1.0-10.0) Eosinophils (%) (Auto) 0.0 % (0.0-3.0) Basophils (%) (Auto) 0.6 % (0.0-2.0) Coagulation Test 11/23/17 07:55 Prothrombin Time 12.8 SEC (9.30-11.50) H Prothromb Time International Ratio 1.2 (0.9-1.1) H Activated Partial Thromboplast Time 30 SEC (23-33) Chemistry Test 11/23/17 07:55 Sodium Level 132 MMOL/L (136-145) L Potassium Level 3.8 MMOL/L (3.5-5.1) Chloride Level 97 MMOL/L (98-107) L Carbon Dioxide Level 25 MMOL/L (21-32) Anion Gap 10 mmol/L (5-15) Blood Urea Nitrogen 6 mg/dL (7-18) L Creatinine 0.5 MG/DL (0.55-1.30) L Estimat Glomerular Filtration Rate > 60 mL/min (>60) Glucose Level 164 MG/DL (74-106) H Calcium Level 8.7 MG/DL (8.5-10.1) Risk Assessment & Plan Assessment: asa 4 Plan: GA Status Change Before Surgery: No Pre-Antibiotics Drug: ancef 2 grams Given Within 1 Hr of Incision: Yes Time Given: 16:15 Coco Strong M.D. Nov 23, 2017 16:45
[2017-11-23] MEDS ORDERED: Bacitracin Oint 15gm Tube TOPIC ONE (16:47)
[2017-11-23] MEDS ORDERED: fentaNYL 100 mcg/2 mL IV PRN (17:00)
[2017-11-23] MEDS ORDERED: Hydromorphone 0.5mg/0.5ml inj IVP PRN (17:00)
[2017-11-23] MEDS ORDERED: DiphenhydrAMINE 50mg/ml Inj IVP PRN (17:00)
--- NOTE | 2017-11-23 17:19 | Immediate Post-Op Evaluation ---
Immediate Post-Op Evalulation Immediate Post-Op Evalulation Procedure: right leg above knee amputation Date of Evaluation: Nov 23, 2017 Time of Evaluation: 17:35 IV Fluids: NS 500ml Blood Products: 0 Estimated Blood Loss: 50ml Urinary Output: 200ml Blood Pressure Systolic: 103 Blood Pressure Diastolic: 62 Pulse Rate: 80 Respiratory Rate: 16 O2 Sat by Pulse Oximetry: 100 Temperature (Fahrenheit): 99.1 Pain Score (1-10): 3 Nausea: No Vomiting: No Complications none Patient Status: awake, patent, none Hydration Status: adequate Drug: ancef 2 grams Given Within 1 Hr of Incision: Yes Time Given: 16:15 Coco Strong M.D. Nov 23, 2017 17:19
--- NOTE | 2017-11-23 17:34 | Operative Note - PDOC ---
Operative Note Operative Note Pre-op Diagnosis: Advanced gangrene with knee contracture Procedure: Right leg above knee amputation Post-op Diagnosis: same as pre-op Surgeon: Harvinder Katz MD Anesthesiologist: Francisco Strong MD Anesthesia: general Specimen: yes - right leg Complications: none Condition: stable Fluids: 750cc Estimated Blood Loss: minimal - 50cc Drains: none Implant(s) used?: No Harvinder Katz MD Nov 23, 2017 17:34
--- NOTE | 2017-11-23 17:49 | Cardiology Report ---
APPROVED REPORT EKG Measurement Heart [id number] Normal sinus rhythm Prolonged QT Abnormal ECG
--- NOTE | 2017-11-23 18:04 | 48 Hour Post Anesthesia Eval ---
Post Anesthesia Evaluation Procedure: right leg above knee amputation Date of Evaluation: Nov 23, 2017 Time of Evaluation: 18:00 Blood Pressure Systolic: 118 0: 63 Pulse Rate: 85 Respiratory Rate: 16 Temperature (Fahrenheit): 99.1 O2 Sat by Pulse Oximetry: 99 Airway: patent Nausea: No Vomiting: No Pain Intensity: 0 Hydration Status: adequate Mental Status/LOC: patient returned to baseline Post-Anesthesia Complications: none Follow-up care needed: N/A Coco Strong M.D. Nov 23, 2017 18:04
[2017-11-23] MEDS ORDERED: D5 1/2NS w/KCl 20mEq 1,000 ML IV SCH (19:00)
[2017-11-23] MEDS ORDERED: Morphine Sulfate 2mg/ml Inj(IV/IM USE ONLY) IVP PRN ×2 (19:30→21:00)
[2017-11-23] MEDS ORDERED: Norco 5mg/325mg tab ORAL PRN ×2 (19:30→21:00)
[2017-11-23] MEDS ORDERED: Atorvastatin 20mg tab ORAL SCH (21:00)
--- NOTE | 2017-11-23 22:49 | General Progress Note ---
Assessment/Plan Status: unchanged Assessment/Plan Problem List: (1) DM (diabetes mellitus) ICD Codes: E11.9 - Type 2 diabetes mellitus without complications SNOMED: 00613890 (2) HTN (hypertension) ICD Codes: I10 - Essential (primary) hypertension SNOMED: 60024661 (3) PVD (peripheral vascular disease) ICD Codes: I73.9 - Peripheral vascular disease, unspecified SNOMED: 848226004 (4) Gangrene ICD Codes: I96 - Gangrene, not elsewhere classified SNOMED: 254922009 (5) Sepsis ICD Codes: A41.9 - Sepsis, unspecified organism SNOMED: 81898015 (6) s/p left above the knee amputation (7) s/p right lower extremity angioplasty (8) Anemia ICD Codes: D64.9 - Anemia, unspecified SNOMED: 482287348 (9) s/p right leg femoral tibial bypass graft, patent Status: stable, progressing Assessment/Plan - General surgery consulted, Dr. Hall, appreciate rec's - Podiatry consulted, Dr. Paniagua - ID consulted, Dr. Nieves, appreciate rec's - Vascular surgery consulted, Dr. Mae - Hematology consulted, Dr. Resendiz - s/p 1 unit pRBC transfusion for Hgb 7 on 11/18 - Check stool OB - EKG NSR. CXR with no acute pathology. CBC, CMP, coags reviewed. - Troponin negative - ECHO with 60-5% LVEF with no wall motion abnormality - Trend WBC - Trend H/H - F/u ESR, CRP -- elevated - F/u blood cx, urine cx - empiric IV abx (vancomycin, cefepime, flagyl) (11/17 - ) - F/u wound cx -- multiple organisms growing - s/p venous and arterial duplex of bilateral lower extremities - F/u CT chest angio with bilateral leg runoff w/ IV contrast -- 1. Extensive atherosclerotic calcifications in the distal abdominal aorta, common iliac arteries, external iliac arteries, without evidence of anginal dilatation or dissection. Moderate stenosis in bilateral common iliac arteries. 2. Diffuse colonic and rectal fecal retention may suggest constipation and/or impaction. - F/u MRI of right foot and ankle to r/o osteomyelitis -- possible acute osteomyelitis on the 1st to 4th metatarsal heads - A1c 7.0 - SSi - LDL 31 - Continue home meds - Wound care - Pain control and supportive care - For R AKA today - s/p bioethics approval. input appreciated Based on the patient's medical history, and other available ancillary data, the patient is a INTERMEDIATE risk for an INTERMEDIATE risk procedure. Per the most recent ACC/AHA guidelines, the patient does not need any further cardiopulmonary testing prior to the procedure and there do not appear to be any clear medical contraindications to proceeding with the proposed procedure. Patient is agreeable to procedure but per psychiatry, patient has no capacity. Bioethics consult placed. [employer] contacted for prosthetics hardware. DVT Prophylaxis: HSQ Code Status: Full Hospital Classification Declaration: Based on this initial evaluation, and depending on the patient's clinical course, I anticipate that this patient will require hospitalization for 4-5 days for sepsis, gangrene and close respiratory/ hemodynamic monitoring. Disposition: Once the patient is stable to leave the hospital, I anticipate the patient will likely be discharged to the following environment: [facility] I spent 45 minutes on this patient's case, and 25 minutes were dedicated to counseling and/or care coordination. Discussed with patient/family, nursing staff, SW/CM, and all consultants regarding clinical status, treatment course, and disposition planning. Time of note may not reflect time of encounter. Subjective Date patient seen: Nov 23, 2017 Time patient seen: 13:00 ROS Limited/Unobtainable: Yes Constitutional: Reports: no symptoms HEENT: Reports: no symptoms Cardiovascular: Reports: no symptoms Respiratory: Reports: no symptoms Gastrointestinal/Abdominal: Reports: no symptoms Genitourinary: Reports: no symptoms Neurologic/Psychiatric: Reports: no symptoms Endocrine: Reports: no symptoms Hematologic/Lymphatic: Reports: no symptoms Allergies: Coded Allergies: No Known Allergies (Unverified , 11/16/17) All Systems: reviewed and negative except above Subjective No acute events overnight Chart reviewed Patient c/o persistent leg pain NPO for surgery today Objective Last 24 Hour Vital Signs Date Time Temp Pulse Resp B/P (MAP) Pulse Ox O2 Delivery O2 Flow Rate FiO2 11/23/17 19:21 98.6 84 19 107/64 96 Room Air 98.6 11/23/17 19:00 83 17 118/63 97 Room Air 11/23/17 18:40 80 22 102/61 96 Room Air 11/23/17 18:38 98.6 11/23/17 18:23 82 20 104/62 98 Room Air 11/23/17 18:12 81 17 101/61 97 Room Air 11/23/17 18:04 82 19 118/63 98 Room Air 11/23/17 18:04 210.4 85 16 99 11/23/17 17:56 210.4 80 16 100 11/23/17 17:50 86 20 100/60 100 Simple Mask 6 11/23/17 17:40 79 18 109/61 100 Simple Mask 6 11/23/17 17:35 99.1 80 16 103/62 100 Simple Mask 6 99.1 11/23/17 13:14 100.6 11/23/17 12:44 100.6 11/23/17 12:00 100.6 54 22 112/66 (81) 95 100.6 11/23/17 09:46 98.4 11/23/17 09:00 Room Air 11/23/17 08:49 106/66 11/23/17 08:00 98.4 92 20 106/66 (79) 99 98.4 11/23/17 06:05 99.0 11/23/17 05:06 101.7 11/23/17 04:00 101.7 84 17 121/67 (85) 99 101.7 11/23/17 00:26 99.5 84 17 113/69 (84) 97 99.5 Intake and Output 11/22/17 11/23/17 19:00 07:00 Intake Total 1723.708 ml 75 ml Output Total 1250 ml 950 ml Balance 473.708 ml -875 ml Intake Oral 640 ml IV Total 1083.708 ml 75 ml Output Urine Total 1250 ml 950 ml # Bowel Movements 1 Laboratory Tests 11/23/17 07:55: White Blood Count 6.4, Red Blood Count 3.64L, Hemoglobin 10.4L, Hematocrit 31.4L , Mean Corpuscular Volume 86, Mean Corpuscular Hemoglobin 28.7, Mean Corpuscular Hemoglobin Concent 33.2, Red Cell Distribution Width 15.3H, Platelet Count 401, Mean Platelet Volume 4.4L, Neutrophils (%) (Auto) 80.9H, Lymphocytes (%) (Auto) 12.5L, Monocytes (%) (Auto) 6.0, Eosinophils (%) (Auto) 0.0, Basophils (%) (Auto) 0.6, Prothrombin Time 12.8H, Prothromb Time International Ratio 1.2H, Activated Partial Thromboplast Time 30, Sodium Level 132L, Potassium Level 3.8, Chloride Level 97L, Carbon Dioxide Level 25, Anion Gap 10, Blood Urea Nitrogen 6L, Creatinine 0.5L, Estimat Glomerular Filtration Rate > 60, Glucose Level 164H, Calcium Level 8.7 Height (Feet): 5 Height (Inches): 6.00 Weight (Pounds): 104 General Appearance: lethargic, confused EENT: PERRL/EOMI Neck: non-tender Cardiovascular: normal peripheral pulses, normal rate, regular rhythm Respiratory/Chest: chest wall non-tender, lungs clear Abdomen: normal bowel sounds, non tender, soft Pelvis: normal external exam Genitourinary/Rectal: normal genital exam Extremities: other - dressings c/d/i s/p AKA Edema: no edema noted Arm (L), no edema noted Arm (R) Neurologic: disoriented Skin: normal pigmentation Lymphatic: normal anterior cervical (L), normal anterior cervical (R) Barak Mcbride M.D. Nov 23, 2017 22:49
[2017-11-24] VITALS: BP 138/80
[2017-11-24] MEDS: Vancomycin 1 GM in D5W 275 ML IVPB SCH ×2 (01:36→09:01)
[2017-11-24 04:00] VITALS: BP 138/83
[2017-11-24] MEDS: Piperacillin/Tazobactam 3.375 GM in D5W 110 ML IVPB SCH ×2 (04:23→11:25)
[2017-11-24] MEDS: NovoLOG Insulin Flexpen SUBQ SCH ×3 (05:54→16:29)
[2017-11-24 07:13] LABS: ANION GAP 8 mmol/L (5-15); BLOOD UREA NITROGEN 8 mg/dL (7-18); CALCIUM 8.2 MG/DL (8.5-10.1); CARBON DIOXIDE 27 MMOL/L (21-32); CHLORIDE 98 MMOL/L (98-107); CREATININE 0.6 MG/DL (0.55-1.30); POTASSIUM 3.8 MMOL/L (3.5-5.1); SODIUM 133 MMOL/L (136-145)
[2017-11-24 07:27] LABS: BASOPHILS % (AUTO) 0.2 % (0.0-2.0); HEMATOCRIT 29.8 % (42.0-52.0); HEMOGLOBIN 9.8 G/DL (14.2-18.0); LYMPHOCYTES % (AUTO) 16.6 % (20.0-45.0); MEAN CORPUSCULAR VOLUME 86 FL (80-99); MONOCYTES % (AUTO) 8.1 % (1.0-10.0); NEUTROPHILS % (AUTO) 74.9 % (45.0-75.0); PLATELET COUNT 386 K/UL (150-450); RED BLOOD COUNT 3.45 M/UL (4.70-6.10); RED CELL DISTRIBUTION WIDTH 14.7 % (11.6-14.8); WHITE BLOOD COUNT 8.4 K/UL (4.8-10.8)
[2017-11-24 08:00] VITALS: BP 129/75
[2017-11-24] MEDS ORDERED: Furosemide 40mg tab ORAL SCH (09:00)
[2017-11-24] MEDS ORDERED: Docusate 100mg cap ORAL SCH (09:00)
[2017-11-24] MEDS ORDERED: Lisinopril 10mg tab ORAL SCH (09:00)
[2017-11-24] MEDS: Heparin 5000 units/ml inj SUBQ SCH (09:00)
[2017-11-24] MEDS: D5 1/2NS w/KCl 20mEq 1,000 ML IV SCH (11:00)
--- NOTE | 2017-11-24 11:00 | 48 Hour Post Anesthesia Eval ---
Post Anesthesia Evaluation Procedure: right leg above knee amputation Date of Evaluation: Nov 24, 2017 Time of Evaluation: 10:57 Blood Pressure Systolic: 128 0: 73 Pulse Rate: 68 Respiratory Rate: 20 Temperature (Fahrenheit): 97.6 O2 Sat by Pulse Oximetry: 98 Airway: patent Nausea: No Vomiting: No Pain Intensity: 1 Hydration Status: adequate Cardiopulmonary Status: stable Mental Status/LOC: patient returned to baseline Follow-up Care/Observations: n/a Post-Anesthesia Complications: none Follow-up care needed: N/A Erasmo Leal MD Nov 24, 2017 10:59
--- NOTE | 2017-11-24 11:34 | Discharge Summary ---
Discharge Summary Hospital Course Date of Admission Nov 16, 2017 at 19:25 Date of Discharge 11/24/2017 Admitting Diagnosis RT LEG CELLULITIS COLE Gomez is a 62 year old male who was admitted on Nov 16, 2017 at 19: 25 for Right Leg Cellulitis and gangrene He has a PMH of DM, s/p left above the knee amputation, HTN, and PVD who presented from [facility] for extensive gangrene and vasculopathy to RLE. Patient stated that he had the LLE amputation 1 year ago. He noted that on the right lower extremity, he had a toe gangrene, which prompted his vascular surgeon to perform a RLE angioplasty 1 month ago. The gangrene/infection to right foot had been worsening over the last 1 month. Patient was also noted to have been denying IV antibiotics at the SNF. Patient was further admitted for management of right foot gangrene. Reported pain and swelling to RLE. Consultations Vascular Surgery General Surgery Infectous Diseases Procedures Above the knee amputation Hospital Course Broad spectrum IV antibiotics were started ID, vascular surgery and general surgery were consulted Vascular studies were performed and given extent of gangrene and infection it was decided to perform an above the knee amputation He was stable postop and discharged to SNF Discharge Condition Upon Discharge: stable Discharge Disposition I spent 40 minutes conducting and coordinating discharge activities on this patient Patient was discharged to SNF Barak Mcbride M.D. Nov 24, 2017 11:34
[2017-11-24] MEDS ORDERED: VANCOMYCIN750 MG/150 IV (11:47)
[2017-11-24] MEDS ORDERED: ZOSYN 3.373.375 GM/1 IVPB ×2 (11:47→15:25)
[2017-11-24] MEDS ORDERED: DIAZEPAM5 MG ORAL (11:47)
[2017-11-24 12:00] VITALS: BP 112/67
--- NOTE | 2017-11-24 13:30 | Operative Note - Dictated ---
DATE OF OPERATION: 11/23/2017 SURGEON: Harvinder Katz M.D. ANESTHESIOLOGIST: Idalia Strong M.D. PREOPERATIVE DIAGNOSES: 1. Advanced right foot gangrene and necrosis with severe peripheral arterial disease and contracture. 2. Severe peripheral arterial disease, hypertension, and former smoker. 3. History of left contralateral above-knee amputation. POSTOPERATIVE DIAGNOSES: 1. Right foot gangrene and necrosis with severe peripheral arterial disease and contracture. 2. Severe peripheral arterial disease, hypertension, and former smoker. 3. History of left contralateral above-knee amputation. PROCEDURE: Right leg above-knee amputation. COMPLICATIONS: None. EBL: 50 mL. FINDINGS: A well-perfused right [id number] amputation stump with good completion stump closure. The patient tolerated the procedure very well. INDICATIONS FOR PROCEDURE: The patient is a 62-year-old male, who presented for above procedure. Risks and benefits were discussed with the patient and medical consultants and consent was obtained. The patient was evaluated by Ethic Committee, Psychiatry service, Medical General Surgery, and Infectious Disease and all recommended the above procedure. DESCRIPTION OF PROCEDURE: The patient was brought to the procedure room. After a dose of antibiotics and sedation by the anesthesiologist, the right leg was prepped and draped in usual sterile manner. Anterior and posterior skin fishmouth thigh incision was made. The subcutaneous tissue was divided. The previous left femoral tibial bypass graft was dissected and ligated. This was pulsatile and suture-ligated using a 3-0 Prolene suture. The left thigh muscle was divided down to the femur. The left femoral vessels were sharply dissected and divided using #0 silk suture and suture ligated using 3-0 Prolene suture. The left femur was divided several centimeters above the skin incision. The bone edges were blunted. The left leg was sent to pathology for permanent sampling. The wound was irrigated with antibiotic irrigation and hemostasis was achieved. The muscle was reapproximated using a 2-0 Vicryl suture and the fascia layer was closed using interrupted 2-0 and 3-0 Vicryl sutures. The skin was closed with interrupted 3-0 nylon suture and the skin stapler. Sterile dressing was applied. The patient tolerated the procedure very well and was transferred to recovery room hemodynamically stable and extubated. Sponge count, needle count, and instrument count x2 were correct. Harvinder Katz M.D. DR: JOSE A JOB#: [id number] CC: Harvinder Katz M.D.; Fax#: [phone] DEBBIE AGUILAR M.D. ; FAX#: [phone] [id number]
[2017-11-24 15:44] VITALS: BP 107/64
[2017-11-24] MEDS ORDERED: Tubing IV Secondary IV ONE (16:59)
[2017-11-24] MEDS ORDERED: NS 275ml ONE (16:59)
--- NOTE | 2017-11-25 11:06 | General Progress Note ---
Assessment/Plan Assessment/Plan dementia the pt packs capacity to make decisions seroquel prn for agitation Subjective Date patient seen: Nov 24, 2017 Neurologic/Psychiatric: Reports: anxiety Allergies: Coded Allergies: No Known Allergies (Unverified , 11/16/17) Subjective the pt is complained about pain and is anxious Objective Last 24 Hour Vital Signs Date Time Temp Pulse Resp B/P (MAP) Pulse Ox O2 Delivery O2 Flow Rate FiO2 11/24/17 16:00 81 11/24/17 15:44 97.3 80 22 107/64 (78) 97 97.3 11/24/17 12:00 100 11/24/17 12:00 97.5 70 22 112/67 (82) 95 97.5 Intake and Output 11/24/17 11/25/17 19:00 07:00 Intake Total 1040.000 ml Balance 1040.000 ml IV Total 1040.000 ml Height (Feet): 5 Height (Inches): 6.00 Weight (Pounds): 104 Valerio Cassidy MD Nov 25, 2017 11:06
== END 2017-11-24 17:00 | DRG 710 ==
LOC: EDBD 18:25 → EDBEDREQSVC 18:53 → EMR 19:23 → 2E 19:25 → EDBEDREQ 19:26 → 4E 11-20 20:36 → 2E 11-23 19:19
PROC: 0Y6C0Z3 Detachment at Right Upper Leg, Low, Open Approach (ICD-10-PCS; principal; 2017-11-23 13:30)
DX: A41.9 Sepsis, unspecified organism (principal); I96 Gangrene, not elsewhere classified; E11.40 Type 2 diabetes mellitus with diabetic neuropathy, unspecified; E11.69 Type 2 diabetes mellitus with other specified complication; E11.52 Type 2 diabetes mellitus with diabetic peripheral angiopathy with gangrene; M86.8X7 Other osteomyelitis, ankle and foot; Z79.4 Long term (current) use of insulin; I10 Essential (primary) hypertension; Z89.612 Acquired absence of left leg above knee; D64.9 Anemia, unspecified; L03.115 Cellulitis of right lower limb; D47.3 Essential (hemorrhagic) thrombocythemia; F03.90 Unspecified dementia, unspecified severity, without behavioral disturbance, psychotic disturbance, mood disturbance, and anxiety
CPT/HCPCS: 36415; 71045; 75635; 80048; 80053; 80061; 80202; 82270; 82378; 82550; 82553; 82607; 82728; 82746; 82962; 83036; 83540; 83550; 83605; 83735; 84100; 84443; 84484; 84550; 85007; 85025; 85044; 85384; 85610; 85651; 85730; 86140; 86850; 86900; 86901; 86920; 87040; 87070; 87081; 87181; 87205; 90732; 93005; 93306; 93926; 93971; 94003; 94150; J1815; J2405